=== PATIENT | female | born 1980 | race Caucasian/White ===

== ENCOUNTER 2016-10-14 17:49 | Emergency (ER) | payer BC, OTHER ==
[~2016-10-14] VITALS: Ht 160 cm; Wt 53.1 kg
[~2016-10-14 17:49] MED LIST: CALC500T83 PO; CHOL1000 PO; ESOM20CA PO; MONT1TAB3 PO; MULT-506 PO; QVRINH80 PO; SPRIN/30 INH; SYMIN/8045 INH
[2016-10-14 17:54] VITALS: TEMP 37.5; Ht 160 cm; Wt 53.1 kg
--- NOTE | 2016-10-14 18:56 | DIAGNOSTIC IMAGING REPORT ---
LEFT ELBOW MIN 3 VIEWS ROUTINE HISTORY: 36 years-old Female acute left elbow pain status post fall. COMPARISON: None available TECHNIQUE: 3 views of the left elbow FINDINGS: No acute fracture identified. The radial head appears subluxed dorsally to the capitellum with mild associated radiocapitellar degenerative changes noted. Negative for opaque foreign body. There is mild soft tissue swelling of the elbow. No large joint effusion. IMPRESSION: 1. No acute fracture. 2. Dorsal dislocation of the radial head in relation to the capitellum with mild associated soft tissue swelling. The above report was generated using voice recognition software. It may contain grammatical, syntax or spelling errors. Electronically signed by: Jonny Dinero M.D. 10/14/2016 6:55 PM Dictated Date/Time: 10/14/2016 6:49 PM
[2016-10-14 20:40] VITALS: BP 121/70; PULSE 70; O2SAT 98
--- NOTE | 2016-10-15 14:31 | EMERGENCY ROOM VISIT NOTE ---
ED Visit Note First contact with patient: 18:17 CHIEF COMPLAINT: Elbow pain HISTORY OF PRESENT ILLNESS: This 36-year-old female patient presents to the emergency department complaining of pain in the left elbow for the past one day. The patient was cleaning out the back of her vehicle at home with her vacuum boat cleaner. The patient states that she maneuvered herself into an awkward position, and fell out the back of the vehicle onto her left elbow. She has an old history of injury to this elbow with subtle deformity. She is not able to fully extend this elbow at baseline. The patient rates their pain as dull and 6/10. The patient has taken nothing for relief of the pain. The patient does not have any numbness or tingling. The patient denies any other injuries. REVIEW OF SYSTEMS: A 6 system review of systems was completed with positives and pertinent negatives listed in the HPI. ALLERGIES: Ibuprofen MEDICATIONS: See EMR PMH: Otherwise healthy SOCIAL HISTORY: Lives with family PHYSICAL EXAM: Vital Signs: Reviewed Nurse's notes, vital signs stable. GENERAL : White female, in no acute distress, well-developed, well-nourished. SKIN: The skin was with superficial abrasion over the proximal radius. Capillary reflex less than 3 seconds. MUSCULOSKELETAL: There is tenderness over the proximal radius of the left elbow. She is able to supinate and pronate against resistance. She is able to fully flex at this elbow, but not fully extend, again which is evidently normal for her. No tenderness of the left shoulder or left wrist. Neurovascular status is intact distally. Radial pulse 2+. NEURO: Patient was alert and oriented to person place and time. Normal sensation to light and sharp touch. LEFT ELBOW MIN 3 VIEWS ROUTINE HISTORY: 36 years-old Female acute left elbow pain status post fall. COMPARISON: None available TECHNIQUE: 3 views of the left elbow FINDINGS: No acute fracture identified. The radial head appears subluxed dorsally to the capitellum with mild associated radiocapitellar degenerative changes noted. Negative for opaque foreign body. There is mild soft tissue swelling of the elbow. No large joint effusion. IMPRESSION: 1. No acute fracture. 2. Dorsal dislocation of the radial head in relation to the capitellum with mild associated soft tissue swelling. EMERGENCY DEPARTMENT COURSE: Physical exam and history were performed. Nursing notes and EMR were reviewed. The patient evidently fell and struck her left elbow yesterday. X-ray was performed and shows dorsal dislocation of the radial head. Clinically this may be chronic for the patient, as she has had previous injury when she was much younger to this elbow. On exam she does not seem to be dislocated as she does have full range of motion and strength. Because of the unique nature of the injury and history I spoke with orthopedics , Dr Rueda. Dr. Rueda recommended that the patient be placed in a splint and given a sling. He will see her in his office tomorrow morning around 8 AM. The patient was pleased with this plan and voiced understanding. Splint was placed with neurovascular status remaining intact. The patient was given discharge instructions as below and otherwise invited back to ER with any new, worsening, or concerning symptoms. Current/Historical Medications Scheduled Budesonide/Formoterol Fumarate (Symbicort 80/4.5 Inhaler), 2 PUFFS INH BID Calcium (Calcium), 500 MG PO QAM Cholecalciferol (Vitamin D3), 1 TAB PO QAM Esomeprazole Magnesium (Nexium), 20 MG PO QAM Multivitamin (Multivitamin), 1 TAB PO QAM Allergies Coded Allergies: Aspirin (Verified Allergy, Unknown, asthma attack, 10/14/16) Ibuprofen (Verified Allergy, Unknown, ASTHMA ATTACK, 10/14/16) Vital Signs Date Time Temp Pulse Resp B/P (MAP) Pulse Ox O2 Delivery O2 Flow Rate FiO2 10/14/16 20:40 70 16 121/70 98 10/14/16 17:54 37.5 75 16 120/75 99 Room Air Departure Information Impression Primary Impression: Injury of left elbow Dispostion Home / Self-Care Condition GOOD Referrals Jw Rueda, DO Forms HOME CARE DOCUMENTATION FORM, IMPORTANT VISIT INFORMATION Patient Instructions My [facility], ED Compartment Syndrome At Risk For Additional Instructions You were seen and evaluated today on an emergency basis only. This is not a substitute for, or an effort to provide, complete comprehensive medical care. It is not possible to recognize and treat all injuries or illnesses in a single emergency department visit. For this reason it is recommended that you followup with [facility], Dr. Rueda's office, tomorrow morning at 8 AM. Please arrive at his office at 8am. He will see you around 8:30am. Let the office know that we spoke directly with Dr. Rueda about this appointment. They should be expecting you. For baseline pain relief you may alternate ibuprofen and acetaminophen every 4 hours for pain control. Take 600 mg ibuprofen (Advil) and then 4 hours later take 1000 mg acetaminophen (Tylenol). Do not take more than 3000 mg acetaminophen in a single day. Wear your sling for comfort. Do not get your splint wet. You are welcome to return to the emergency department anytime with new, worsening, or concerning symptoms.
== END 2016-10-14 20:40 | disposition home or self-care (01) ==
LOC: C.EDB 17:50 → C.EDD 20:40
DX: S50.312A Abrasion of left elbow, initial encounter (principal); W19.XXXA Unspecified fall, initial encounter; Y93.89 Activity, other specified; Z79.899 Other long term (current) drug therapy

== ENCOUNTER 2017-02-05 16:54 | Emergency (ER) | payer BC ==
[~2017-02-05] VITALS: Ht 160 cm; Wt 52.6 kg
[~2017-02-05 16:54] MED LIST changes: -MONT1TAB3 PO; -QVRINH80 PO; -SPRIN/30 INH
[2017-02-05 16:56] VITALS: TEMP 36.8; Ht 160 cm; Wt 52.6 kg
--- NOTE | 2017-02-05 17:09 | EMERGENCY ROOM VISIT NOTE ---
History Report prepared by Sheila: Chana Lees Under the Supervision of: Dr. Cely Sewell D.O. First contact with patient: 16:59 Chief Complaint: RESPIRATORY PROBLEMS Stated Complaint: DIFFICULTY BREATHING, ASTHMA History of Present Illness The patient is a 36 year old female who presents to the Emergency Room with complaints of worsening respiratory issues for the past few days. She reports she has a history of severe asthma and takes Symbicort twice a day. Any exertion worsens her symptoms as does laying flat. Two weeks ago during a particularly cold day, her symptoms began to worsen. Nebulizers used at home have provided minimal relief. Today she began to feel increasingly weak and developed a sore throat, so she came to the ED. She denies any sick contacts at home. She has not experienced any fevers, chills, cough, nausea, vomiting or diarrhea. She denies any recent diet changes or exposures to new chemicals or smells. She received a flu shot and pneumonia vaccine this year. Pt has previously been intubated for asthma. States has multiple triggers, sees pulmonology on a regular basis and has been much better controlled since having bronchial thermoplasty x 2. Source of History: patient Onset: past few days Position: chest Timing: worsening Modifying Factors (Worsening): other (cold weather) Modifying Factors (Relieving): other (Nebulizers) Associated Symptoms: No fevers, No chills, No cough, No nausea, No vomiting , No diarrhea Review of Systems See HPI for pertinent positives & negatives. A total of 10 systems reviewed and were otherwise negative. Past Medical & Surgical Medical Problems: (1) Asthma Social History Smoking Status: Never Smoker Alcohol Use: occasionally Drug Use: none Marital Status: Housing Status: lives with family Occupation Status: employed Current/Historical Medications Scheduled Budesonide/Formoterol Fumarate (Symbicort 80/4.5 Inhaler), 2 PUFFS INH BID Calcium Carbonate-Vitamin D W/ (Caltrate 600 Plus), 1 TAB PO DAILY Multivitamin (Multivitamin), 1 TAB PO QAM Prednisone (Prednisone Tab), 0 PO DAILY Scheduled PRN Esomeprazole Magnesium (Nexium), 20 MG PO QAM PRN for ACID REFLUX Levalbuterol (Levalbuterol HCl), 1 UNIT NEB Q4 PRN for SOB/Wheezing [Proair Hfa 108], 2 PUFF INH Q4 PRN for SOB/Wheezing Allergies Coded Allergies: Aspirin (Verified Allergy, Unknown, asthma attack, 02/05/17) Ibuprofen (Verified Allergy, Unknown, ASTHMA ATTACK, 02/05/17) Physical Exam Vital Signs Date Time Temp Pulse Resp B/P (MAP) Pulse Ox O2 Delivery O2 Flow Rate FiO2 02/05/17 18:58 79 18 110/65 99 02/05/17 18:20 83 18 115/65 99 Room Air 02/05/17 17:05 99 Room Air 02/05/17 16:56 36.8 103 18 137/82 100 Room Air Physical Exam GENERAL: alert, well appearing, well nourished, no distress, non-toxic, no apparent increased WOB EYE EXAM: normal conjunctiva, PERRL and EOM's grossly intact OROPHARYNX: no exudate, no erythema, lips, buccal mucosa, and tongue normal and mucous membranes are moist NECK: supple, no nuchal rigidity, no adenopathy, non-tender LUNGS: Clear to auscultation. Normal chest wall mechanics, no retractions, no nasal flaring HEART: no murmurs, S1 normal and S2 normal ABDOMEN: abdomen soft, non-tender, normo-active bowel sounds, no masses, no rebound or guarding. BACK: Back is symmetrical on inspection and there is no deformity, no midline tenderness, no CVA tenderness. SKIN: no rashes and no bruising UPPER EXTREMITIES: upper extremities are grossly normal. LOWER EXTREMITIES: No pitting edema. NEURO EXAM: Normal sensorium, cranial nerves II-XII grossly intact, normal speech, no gross weakness of arms, no gross weakness of legs. Medical Decision & Procedures ER Provider Diagnostic Interpretation: Radiology results have been interpreted by the radiologist and reviewed by me. CHEST 2 VIEWS ROUTINE HISTORY: Cough. Short of breath. COMPARISON: Chest 12/17/2015. FINDINGS: The lungs are clear. Cardiac silhouette is normal in size. No pleural effusions. No pneumothorax. IMPRESSION: No acute process. Electronically signed by: Aly Snow M.D. 02/05/2017 6:14 PM Medications Administered Medications (Trade) Dose Ordered Sig/Kisha Route Start Time Stop Time Status Last Admin Dose Admin Albuterol/ Ipratropium (Duoneb) 3 ml NOW STAT INH 02/05/17 17:13 12/23/17 17:14 DC 02/05/17 17:25 3 ML Prednisone (PredniSONE TAB) 60 mg NOW STAT PO 02/05/17 17:13 02/05/17 17:14 DC 02/05/17 17:25 60 MG ED Course 1704: The patient was evaluated in room C6. A complete history and physical exam was performed. 171: Prednisone 60 mg PO, DuoNeb 3 ml INH. 1811: I reevaluated the patient. She is feeling better. I discussed her results. 1840: Updated pt. Feeling better, doesn't feel she needs any additional nebulizer treatments. Discussed f/u with pulmonology, meds to go home on, sx to watch/return for, she verbalized understanding and was agreeable with plan. Medical Decision Differential diagnoses includes but is not limited to pneumonia, bronchitis, COPD/Asthma exacerbation, pneumothorax, pulmonary embolism, congestive heart failure, acute coronary syndrome Pt felt improved with neb and steroids here. No hypoxia, no increased WOB. No evidence of pneumonia. No other accompanying sx to suggest influenza, cardiac pathology, doubt bacteremia/sepsis, effusion. Pt well appearing here, comfortable with plan. DIscussed f/u, sx to return for, use of MDI/nebs at home , she verbalized understanding and was agreeable with plan. Medication Reconcilliation Current Medication List: was personally reviewed by me Blood Pressure Screening Patient's blood pressure: Normal blood pressure Blood pressure disposition: Did not require urgent referral Impression Primary Impression: Acute asthma exacerbation Scribe Attestation The scribe's documentation has been prepared under my direction and personally reviewed by me in its entirety. I confirm that the note above accurately reflects all work, treatment, procedures, and medical decision making performed by me. Departure Information Dispostion Home / Self-Care Prescriptions Prednisone (Prednisone Tab) 20 Mg Tab 0 PO DAILY, #7 TAB 2 TABS DAILY FOR 2 DAYS, THEN 1 TAB DAILY FOR 2 DAYS, THEN 1/2 TAB DAILY FOR 2 DAYS. Prov: Cely Sewell, 02/05/17 Referrals Justine Hunt MD (PCP) Patient Instructions My [facility] Additional Instructions Please use your nebulizers or inhaler 4-6 times during the day. Do not use it more than every 4 hours as needed for trouble breathing or wheezing. Please take the steroids daily as prescribed. Please try to avoid any potential triggers for your asthma. If you feel that your breathing is getting worse, notice a change in the color of your sputum, develop fevers, chest pain, vomiting, dizziness, or you've any other new concerns, please return the emergency room. Problem Qualifiers Primary Impression: Acute asthma exacerbation Asthma severity: mild Asthma persistence: intermittent Qualified Codes: J45.21 - Mild intermittent asthma with (acute) exacerbation
[2017-02-05] MEDS ORDERED: ALBUT/IPRATROP 3MG/0.5MG NEB 3 ML VIAL INH STA (17:13)
[2017-02-05] MEDS ORDERED: PROAIR HFA 108 INH (17:21)
[2017-02-05] MEDS ORDERED: CALCTAB7 PO (17:21)
[2017-02-05] MEDS ORDERED: XPNINS NEB (17:21)
--- NOTE | 2017-02-05 18:16 | DIAGNOSTIC IMAGING REPORT ---
CHEST 2 VIEWS ROUTINE HISTORY: Cough. Short of breath. COMPARISON: Chest 12/17/2015. FINDINGS: The lungs are clear. Cardiac silhouette is normal in size. No pleural effusions. No pneumothorax. IMPRESSION: No acute process. Electronically signed by: Aly Snow M.D. 02/05/2017 6:14 PM Dictated Date/Time: 02/05/2017 6:12 PM
[2017-02-05] MEDS ORDERED: PRED20TA2 PO (18:49)
[2017-02-05 18:58] VITALS: BP 110/65; PULSE 79; O2SAT 99
== END 2017-02-05 19:00 | disposition home or self-care (01) ==
LOC: C.EDB 16:54 → C.EDC 19:00
DX: J45.51 Severe persistent asthma with (acute) exacerbation (principal)

== ENCOUNTER 2017-02-22 11:09 | Emergency (ER) | payer BC ==
[~2017-02-22] VITALS: Ht 160 cm; Wt 63.3 kg
[~2017-02-22 11:09] MED LIST changes: -CALC500T83 PO; +CALCTAB7 PO; -CHOL1000 PO; +PRED20TA2 PO; +PROAIR HFA 108 INH; +XPNINS NEB
[2017-02-22 11:14] VITALS: O2SAT 99; Ht 160 cm; Wt 63.3 kg
[2017-02-22] MEDS ORDERED: ALBU18002 INH (11:28)
[2017-02-22] MEDS ORDERED: KETOROLAC TROMETHAMINE 30 MG/ML VIAL IV STA (11:58)
[2017-02-22] MEDS ORDERED: ACETAMINOPHEN 500 MG TAB PO STA (11:58)
[2017-02-22] MEDS ORDERED: ONDANSETRON INJ 2 MG/ML 2 ML VIAL IV STA (11:58)
[2017-02-22] MEDS ORDERED: FENTANYL CITRATE INJ 50 MCG/1 ML 2 ML VIAL IV ONE (12:00)
--- NOTE | 2017-02-22 12:11 | EMERGENCY ROOM VISIT NOTE ---
History Report prepared by Sheila: Dima Manzanares Under the Supervision of: Dr. Noe Hunter M.D. First contact with patient: 11:42 Chief Complaint: CARDIAC ASSESSMENT Stated Complaint: CHEST PRESSURE/SOB Nursing Triage Summary: C/o ongoing chest "pressure and heaviness" since January when she was diagnosed with asthma. Pt also reports increased SOB with exertion. Pt was at her PCP this am; they sent her here d/t tachycardia- pulse in the 140's [employer]. Current pulse 114. History of Present Illness The patient is a 36 year old white female with a past medical history of asthma and multiple broncho-thermoplasty who presents to the ED with a cc of a constant chest pressure beginning a couple of weeks ago. Negative cough, shortness of breath, nausea, vomiting, and leg swelling. She presented to her PCP today who noticed that her heart rate was elevated. They did an ECG and referred her to the hospital for a further workup. Over this time, her chest pain has been described as this constant pressure that is worse when she lies down. She notes that whenever she exercises, her chest pain becomes sharp and radiates into her left shoulder and right ribs. She has not taken any medications because she has assumed that her symptoms were related to her asthma. She notes her asthma has been under control recently. She is not on control. She denies any recent prolonged travel. Source of History: patient Onset: a couple weeks ago Position: chest (left) Symptom Intensity: moderate Quality: pressure Timing: constant Modifying Factors (Worsening): rest (lie flat), exertion Associated Symptoms: No cough, No SOB, No nausea, No vomiting Note: Whenever she exercises, her pain radiates into her left shoulder and right rib cage. Review of Systems See HPI for pertinent positives and negatives. A total of ten systems were reviewed and were otherwise negative. Past Medical & Surgical Medical Problems: (1) Asthma Family History Heart disease Hypertension Social History Smoking Status: Never Smoker Smokeless Tobacco Use: No Alcohol Use: occasionally Drug Use: none Marital Status: Housing Status: lives with family Occupation Status: employed Current/Historical Medications Scheduled Budesonide/Formoterol Fumarate (Symbicort 80/4.5 Inhaler), 2 PUFFS INH BID Calcium Carbonate-Vitamin D W/ (Caltrate 600 Plus), 1 TAB PO DAILY Multivitamin (Multivitamin), 1 TAB PO QAM Prednisone (Prednisone Tab), 0 PO DAILY Scheduled PRN Albuterol Sulfate (Proair Respiclick), 2 PUFFS INH Q4 PRN for SOB/Wheezing Esomeprazole Magnesium (Nexium), 20 MG PO QAM PRN for ACID REFLUX Levalbuterol (Levalbuterol HCl), 1 UNIT NEB Q4 PRN for SOB/Wheezing Allergies Coded Allergies: Aspirin (Verified Allergy, Unknown, asthma attack, 02/22/17) Ibuprofen (Verified Allergy, Unknown, ASTHMA ATTACK, 02/22/17) Physical Exam Vital Signs Date Time Temp Pulse Resp B/P (MAP) Pulse Ox O2 Delivery O2 Flow Rate FiO2 02/22/17 15:15 95 114/75 98 02/22/17 14:39 107 20 106/76 99 Room Air 02/22/17 13:57 36.9 100 18 126/69 100 Room Air 02/22/17 12:46 96 18 110/93 97 Room Air 02/22/17 12:06 109 02/22/17 11:23 99 Room Air 02/22/17 11:14 99 Room Air 02/22/17 11:14 36.9 114 22 114/72 99 Room Air Physical Exam GENERAL: Awake, alert, well-appearing, NAD HENT: Normocephalic, atraumatic. EYES: Normal conjunctiva. Sclera non-icteric. NECK: Supple. No nuchal rigidity. FROM. RESPIRATORY: CTAB, no rhonchi, wheezing, crackles CARDIAC: Tachycardic rate with a regular rhythm, no MRG ABDOMEN: Soft, NTND, BS+ MSK: No chest wall TTP, no LE edema NEURO: GCS 15, CN 2-12 intact, moves all 4s on command SKIN: No rash or jaundice noted. Medical Decision & Procedures ER Provider Diagnostic Interpretation: Radiology results as stated below per my review and radiologist interpretation: CT ANGIOGRAM OF THE CHEST CLINICAL HISTORY: Atypical chest pain. Tachycardia. COMPARISON STUDY: Chest x-ray dated 02/22/2017. TECHNIQUE: Following the IV administration of 88 cc of Optiray 320, CT angiogram of the chest was performed from the upper abdomen to the thoracic inlet utilizing the pulmonary embolus protocol. Images are reviewed in the axial, sagittal, and coronal planes. 3-D MIPS images are created and assessed. IV contrast was administered without complication. A dose lowering technique was utilized adhering to the principles of ALARA. CT DOSE: 174.37 mGy.cm FINDINGS: Thyroid: Imaged portions of the thyroid gland are normal in size and attenuation. Thoracic aorta: The thoracic aorta is normal in caliber and demonstrates standard 3-vessel arch anatomy. No dissection is seen. Pulmonary vasculature: The pulmonary trunk is normal in caliber. There are no filling defects identified in main, lobar, or segmental pulmonary branches to suggest pulmonary embolus. Heart: The heart is normal in size and configuration, and without pericardial effusion. Lungs and pleural spaces: The lungs and pleural spaces are clear noting dependent atelectasis. The trachea and central airways are patent. Mediastinum: There is no mediastinal lymphadenopathy. Brisa: Clear. Axillae: There is no axillary lymphadenopathy. Upper abdomen: Partially visualized upper abdominal viscera is within normal limits. Skeletal structures: No lytic or blastic bony lesions are seen. IMPRESSION: 1. There is no evidence of pulmonary embolus in the main, lobar, or segmental pulmonary arteries. 2. The lungs are clear. Electronically signed by: Devang Nieves M.D. 02/22/2017 2:00 PM Dictated Date/Time: 02/22/2017 1:57 PM CHEST ONE VIEW PORTABLE CLINICAL HISTORY: CHEST PAIN dyspnea COMPARISON STUDY: 02/05/2017 FINDINGS: The bones soft tissues and hemidiaphragms are normal. The cardiomediastinal silhouette is normal. The lungs are clear. The pulmonary vasculature is normal. IMPRESSION: Negative chest. The above report was generated using voice recognition software. It may contain grammatical, syntax or spelling errors. Electronically signed by: Rogelio Moreno M.D. 02/22/2017 12:34 PM Dictated Date/Time: 02/22/2017 12:33 PM Laboratory Results 02/22/17 11:15 Red Blood Count 5.36, Mean Corpuscular Volume 90.3, Mean Corpuscular Hemoglobin 31.5, Mean Corpuscular Hemoglobin Concent 34.9, Mean Platelet Volume 11.7, Neutrophils (%) (Auto) 73.5, Lymphocytes (%) (Auto) 18.1, Monocytes (%) (Auto) 6.2, Eosinophils (%) (Auto) 1.7, Basophils (%) (Auto) 0.3, Neutrophils # (Auto) 4.89, Lymphocytes # (Auto) 1.20, Monocytes # (Auto) 0.41, Eosinophils # (Auto) 0.11, Basophils # (Auto) 0.02 02/22/17 11:15 Test 02/22/17 11:15 02/22/17 12:46 White Blood Count 6.64 K/uL (4.8-10.8) Red Blood Count 5.36 M/uL (4.2-5.4) Hemoglobin 16.9 g/dL (12.0-16.0) Hematocrit 48.4 % (37-47) Mean Corpuscular Volume 90.3 fL (80-100) Mean Corpuscular Hemoglobin 31.5 pg (25-34) Mean Corpuscular Hemoglobin Concent 34.9 g/dl (32-36) Platelet Count 226 K/uL (130-400) Mean Platelet Volume 11.7 fL (7.4-10.4) Neutrophils (%) (Auto) 73.5 % Lymphocytes (%) (Auto) 18.1 % Monocytes (%) (Auto) 6.2 % Eosinophils (%) (Auto) 1.7 % Basophils (%) (Auto) 0.3 % Neutrophils # (Auto) 4.89 K/uL (1.4-6.5) Lymphocytes # (Auto) 1.20 K/uL (1.2-3.4) Monocytes # (Auto) 0.41 K/uL (0.11-0.59) Eosinophils # (Auto) 0.11 K/uL (0-0.5) Basophils # (Auto) 0.02 K/uL (0-0.2) RDW Standard Deviation 42.5 fL (36.4-46.3) RDW Coefficient of Variation 13.0 % (11.5-14.5) Immature Granulocyte % (Auto) 0.2 % Immature Granulocyte # (Auto) 0.01 K/uL (0.00-0.02) Anion Gap 7.0 mmol/L (3-11) Est Creatinine Clear Calc Drug Dose 86.0 ml/min Estimated GFR () 108.3 Estimated GFR (Non- 93.4 BUN/Creatinine Ratio 20.8 (10-20) Calcium Level 9.8 mg/dl (8.5-10.1) Troponin I < 0.015 ng/ml (0-0.045) Pro-B-Type Natriuretic Peptide 60 pg/ml (0-450) Human Chorionic Gonadotropin, Qual NEG (NEG) Chemistry Specimen Hemolysis Prothrombin Time 11.2 SECONDS (9.0-12.0) Prothromb Time International Ratio 1.1 (0.9-1.1) Activated Partial Thromboplast Time 26.2 SECONDS (21.0-31.0) Partial Thromboplastin Ratio 1.0 Thyroid Stimulating Hormone (TSH) 1.550 uIu/ml (0.300-4.500) Laboratory results reviewed by me Medications Administered Medications (Trade) Dose Ordered Sig/Kisha Route Start Time Stop Time Status Last Admin Dose Admin Ondansetron HCl (Zofran Inj) 4 mg NOW STAT IV 02/22/17 11:58 02/22/17 12:02 DC 02/22/17 12:10 4 MG Acetaminophen (Tylenol Tab) 1,000 mg NOW STAT PO 02/22/17 11:58 02/22/17 12:02 DC 02/22/17 12:10 1,000 MG Fentanyl Citrate (Fentanyl Inj) 50 mcg NOW ONCE IV 02/22/17 12:00 02/22/17 12:02 DC 02/22/17 12:11 50 MCG Ketorolac Tromethamine (Toradol Inj) 30 mg NOW STAT IV 02/22/17 11:58 02/22/17 12:02 DC 02/22/17 12:10 30 MG Sodium Chloride 500 ml @ 999 mls/hr Q31M STAT IV 02/22/17 12:43 02/22/17 13:13 DC 02/22/17 13:00 999 MLS/HR Lorazepam (Ativan Tab) 0.5 mg NOW STAT PO 02/22/17 14:12 02/22/17 14:13 DC 02/22/17 14:37 0.5 MG ECG Indication: chest pain Rate (beats per minute): 116 Rhythm: sinus tachycardia Findings: Q waves (III), other (normal axis, normal intervals, no other STS changes or TWI) Comparison ECG Date: 16 Dec 2016 Change: no significant change ED Course 1142: The patient was evaluated in room B5. A complete history and physical exam was performed. 1500: I reevaluated the patient. Discussed results and discharge instructions: She verbalized understanding and agreement. The patient is ready for discharge. Medical Decision The patient is a 36 year old white female with a past medical history of asthma and multiple broncho-thermoplasty who presents to the ED with a cc of a constant chest pressure beginning a couple of weeks ago. Negative cough, shortness of breath, nausea, vomiting, and leg swelling. Differential diagnosis: Etiologies such as cardiac ischemia, aortic dissection, pulmonary embolism, pneumonia, pneumothorax, musculoskeletal, infections, pericarditis, myocarditis , esophageal rupture, gastrointestinal, as well as others were entertained. Patient was seen and evaluated the bedside. Patient did with complaints of chest pressure that of been ongoing for couple of weeks. Patient states that sometimes this is worsened with thinking about it and also can be worsened with lying flat and somewhat positional in nature. Patient states that she usually cannot take NSAIDs or steroids as this usually makes her asthma worse. Patient on exam is fairly well-appearing although does have some tachycardia. Given the patient's second presentation with tachycardia with an exam is not consistent with asthma the patient did have blood work, EKG, troponin, CT of the chest, and chest x-ray. Patient's blood work was fairly unremarkable. Patient did have a mildly elevated H&H. Patient's BUNs to creatinine ratio was mildly elevated as well. This may be consistent with hemoconcentration and dehydration respectively. Patient does state she does urinate a lot but does take in a lot of by mouth fluids. Patient's other blood work was fairly unremarkable. Patient had a negative troponin. Patient had not obtained unchanged EKG. Patient's chest x-ray was clear and the patient did have a CT of the chest that did not show any evidence of PE or pericardial effusion. I did discuss all these findings with the patient. Patient was told that she may benefit from a formal echocardiogram. I did perform one at the bedside which showed good squeeze and no evidence of pericardial effusion. Patient appeared to have a normal EF. Of note the patient did have mild collapse of her IVC upon inspiration which may indicate dehydration. Patient was told she should continue good oral fluid hydration. Patient was told she should follow-up with her PCP. Patient was deemed suitable for outpatient follow-up and treatment at this time. Patient was given strict follow-up, discharge, and return precautions. All questions were answered. Patient was deemed suitable for outpatient follow-up at this time. Patient agreed with the plan of care and was safely discharged home. Medication Reconcilliation Current Medication List: was personally reviewed by wi Danielle Pressure Screening Patient's blood pressure: Normal blood pressure Blood pressure disposition: Did not require urgent referral Impression Primary Impression: Chest discomfort Additional Impressions: Tachycardia Dehydration Scribe Attestation The scribe's documentation has been prepared under my direction and personally reviewed by me in its entirety. I confirm that the note above accurately reflects all work, treatment, procedures, and medical decision making performed by me. Departure Information Dispostion Home / Self-Care Referrals Justine Hunt MD (PCP) Forms IMPORTANT VISIT INFORMATION Patient Instructions Dehydration, [facility], Tachycardia Additional Instructions Please return to the emergency department if you have worsening or recurrent symptoms not amenable to at-home treatment. Please call for a follow-up appointment with her primary care physician. Please take your medications as prescribed. If you have other concerns and/or complaints please feel free to also call your primary care physician's office or return the ED for further evaluation, management, and treatment. You received narcotic or benzodiazepene medication while in the emergency room today. This is an addictive medication that may cause drowziness as well as constipation. Do not drive, operate heavy machinery, or drink alcohol under the influence of this medication. You may take tylenol 1000 mg every 6 hours as needed for pain. You may take motrin and tylenol separately or at the same time. Take your medications as prescribed. You have been examined and treated today on an emergency basis only. This is not a substitute for, or an effort to provide, complete comprehensive medical care. It is impossible to recognize and treat all injuries or illnesses in a single emergency department visit. It is therefore important that you follow up closely with [facility], your PCP, and/or your specialist(s). Call as soon as possible for an appointment. Thank you for your time and consideration. I look forward to speaking with you again soon. Please don't hesitate to call us if you have any questions. Problem Qualifiers
[2017-02-22] MEDS ORDERED: OPTIRAY 320 IV PRN (12:15)
[2017-02-22 12:35] LABS: BASO % 0.3 %; BASO ABS # 0.02 K/uL (0-0.2); EOS % 1.7 %; EOS ABS # 0.11 K/uL (0-0.5); HEMATOCRIT 48.4 % (37-47); HEMOGLOBIN 16.9 g/dL (12.0-16.0); IG# 0.01 K/uL (0.00-0.02); LYMPH % 18.1 %; MEAN CELL VOLUME 90.3 fL (80-100); MEAN CORPUSCULAR HEMOGLOBIN 31.5 pg (25-34); MEAN CORPUSCULAR HGB CONC 34.9 g/dl (32-36); MEAN PLATELET VOLUME 11.7 fL (7.4-10.4); MONO % 6.2 %; MONO ABS # 0.41 K/uL (0.11-0.59); NEUT % 73.5 %; NEUT ABS # 4.89 K/uL (1.4-6.5); PLATELET COUNT 226 K/uL (130-400); RED CELL DISTRIBUTION WIDTH SD 42.5 fL (36.4-46.3); WHITE BLOOD COUNT 6.64 K/uL (4.8-10.8)
--- NOTE | 2017-02-22 12:35 | DIAGNOSTIC IMAGING REPORT ---
CHEST ONE VIEW PORTABLE CLINICAL HISTORY: CHEST PAIN dyspnea COMPARISON STUDY: 02/05/2017 FINDINGS: The bones soft tissues and hemidiaphragms are normal. The cardiomediastinal silhouette is normal. The lungs are clear. The pulmonary vasculature is normal. IMPRESSION: Negative chest. The above report was generated using voice recognition software. It may contain grammatical, syntax or spelling errors. Electronically signed by: Rogelio Moreno M.D. 02/22/2017 12:34 PM Dictated Date/Time: 02/22/2017 12:33 PM
[2017-02-22] MEDS ORDERED: SODIUM CHLORIDE 0.9% 500ML 500 ML IV STA (12:43)
[2017-02-22 12:56] LABS: BLOOD UREA NITROGEN 17 mg/dl (7-18); CALCIUM 9.8 mg/dl (8.5-10.1); CARBON DIOXIDE 25 mmol/L (21-32); CREATININE 0.81 mg/dl (0.60-1.20); GLUCOSE 81 mg/dl (70-99); POTASSIUM 4.1 mmol/L (3.5-5.1); SODIUM 137 mmol/L (136-145)
[2017-02-22 13:14] LABS: INR 1.1 (0.9-1.1); PTT PATIENT 26.2 SECONDS (21.0-31.0)
[2017-02-22 13:57] VITALS: TEMP 36.9
--- NOTE | 2017-02-22 14:01 | DIAGNOSTIC IMAGING REPORT ---
CT ANGIOGRAM OF THE CHEST CLINICAL HISTORY: Atypical chest pain. Tachycardia. COMPARISON STUDY: Chest x-ray dated 02/22/2017. TECHNIQUE: Following the IV administration of 88 cc of Optiray 320, CT angiogram of the chest was performed from the upper abdomen to the thoracic inlet utilizing the pulmonary embolus protocol. Images are reviewed in the axial, sagittal, and coronal planes. 3-D MIPS images are created and assessed. IV contrast was administered without complication. A dose lowering technique was utilized adhering to the principles of ALARA. CT DOSE: 174.37 mGy.cm FINDINGS: Thyroid: Imaged portions of the thyroid gland are normal in size and attenuation. Thoracic aorta: The thoracic aorta is normal in caliber and demonstrates standard 3-vessel arch anatomy. No dissection is seen. Pulmonary vasculature: The pulmonary trunk is normal in caliber. There are no filling defects identified in main, lobar, or segmental pulmonary branches to suggest pulmonary embolus. Heart: The heart is normal in size and configuration, and without pericardial effusion. Lungs and pleural spaces: The lungs and pleural spaces are clear noting dependent atelectasis. The trachea and central airways are patent. Mediastinum: There is no mediastinal lymphadenopathy. Brisa: Clear. Axillae: There is no axillary lymphadenopathy. Upper abdomen: Partially visualized upper abdominal viscera is within normal limits. Skeletal structures: No lytic or blastic bony lesions are seen. IMPRESSION: 1. There is no evidence of pulmonary embolus in the main, lobar, or segmental pulmonary arteries. 2. The lungs are clear. Electronically signed by: Devang Nieves M.D. 02/22/2017 2:00 PM Dictated Date/Time: 02/22/2017 1:57 PM
[2017-02-22] MEDS ORDERED: LORAZEPAM 0.5 MG TAB PO STA (14:12)
[2017-02-22 15:15] VITALS: BP 114/75; PULSE 95; O2SAT 98
== END 2017-02-22 15:17 | disposition home or self-care (01) ==
LOC: EDBD 11:09 → C.EDB 11:10
DX: R07.9 Chest pain, unspecified (principal); E86.0 Dehydration; R00.0 Tachycardia, unspecified; J45.909 Unspecified asthma, uncomplicated; Z79.899 Other long term (current) drug therapy; Z88.6 Allergy status to analgesic agent; Z82.49 Family history of ischemic heart disease and other diseases of the circulatory system

== ENCOUNTER → 2017-04-19 | Outpatient (CLI) | payer BC ==
[~2017-04-19] MED LIST changes: +ALBU18002 INH; -PROAIR HFA 108 INH
== END | disposition home or self-care (01) ==
LOC: C.LABSPEC 11:26
PROVIDERS: ATTEND Nurse Practitioner Family
DX: J02.9 Acute pharyngitis, unspecified (principal)

== ENCOUNTER → 2017-05-05 | Outpatient (CLI) | payer BC ==
[~2017-05-05] MED LIST changes: +DEXAMETHASONE **PF** INJ 10 MG/ML VIAL ONE; +MECLIZINE HCL 25 MG TAB PO ONE; +OXYCODONE/ACETAMINOPHEN 5-325 TAB ONE; +PERCOCET HOME PACK PO ONE
--- NOTE | 2017-05-05 07:50 | DIAGNOSTIC IMAGING REPORT ---
FUSION CT SINUSES W/O CLINICAL HISTORY: 37 years-old Female presenting with CHRONIC SINUSITIS. TECHNIQUE: Multidetector CT of the sinuses was performed without the use of intravenous contrast. IV contrast: None. A dose lowering technique was used consistent with the principles of ALARA (as low as reasonably achievable). COMPARISON: None. CT DOSE (mGy.cm): The estimated cumulative dose is 690.36 mGy.cm. FINDINGS: [employer] [place] [place] topogram: Unremarkable. Trace mucosal thickening in the sphenoid sinuses with the remainder of the paranasal sinuses and mastoid air cells clear. No sclerosis of the maxillary sinus more to suggest chronic sinusitis. No osseous erosion. Slight leftward deviation of the bony nasal septum anteriorly without evidence of bony spurring or bridging. Ostiomeatal units patent bilaterally. Nasal frontoethmoidal recesses patent bilaterally. No osseous dehiscence of the bony optic canals or carotid siphons. No anatomic variant. Orbits normal. Limited intracranial evaluation within normal limits. Upper cervical spine normal. IMPRESSION: No current evidence of acute or chronic sinusitis. No significant anatomic variant. Electronically signed by: Raymond Barger M.D. 05/05/2017 7:48 AM Dictated Date/Time: 05/05/2017 7:46 AM
== END | disposition home or self-care (01) ==
LOC: C.CTS 07:23
DX: J32.9 Chronic sinusitis, unspecified (principal)

== ENCOUNTER 2017-05-11 18:15 | Emergency (ER) | payer BC ==
[~2017-05-11 18:15] MED LIST changes: -DEXAMETHASONE **PF** INJ 10 MG/ML VIAL ONE; -MECLIZINE HCL 25 MG TAB PO ONE; -OXYCODONE/ACETAMINOPHEN 5-325 TAB ONE; -PERCOCET HOME PACK PO ONE
[2017-05-11 23:44] LABS: ALBUMIN 4.3 gm/dl (3.4-5.0); ALKALINE PHOSPHATASE 51 U/L (45-117); ALT/SGPT 19 U/L (12-78); AST/SGOT 14 U/L (15-37); BLOOD UREA NITROGEN 16 mg/dl (7-18); CALCIUM 9.2 mg/dl (8.5-10.1); CARBON DIOXIDE 28 mmol/L (21-32); CREATININE 0.84 mg/dl (0.60-1.20); GLUCOSE 73 mg/dl (70-99); POTASSIUM 3.6 mmol/L (3.5-5.1); SODIUM 137 mmol/L (136-145)
[2017-05-11 23:47] LABS: HEMATOCRIT 43.5 % (37-47); HEMOGLOBIN 15.2 g/dL (12.0-16.0); MEAN CELL VOLUME 88.8 fL (80-100); MEAN CORPUSCULAR HGB CONC 34.9 g/dl (32-36); MEAN PLATELET VOLUME 10.9 fL (7.4-10.4); PLATELET COUNT 287 K/uL (130-400); RED CELL DISTRIBUTION WIDTH CV 13.5 % (11.5-14.5); RED CELL DISTRIBUTION WIDTH SD 44.1 fL (36.4-46.3); WHITE BLOOD COUNT 8.23 K/uL (4.8-10.8)
--- NOTE | 2017-05-12 07:40 | DIAGNOSTIC IMAGING REPORT ---
CT SINUSES-MAXILLOFACIAL W/O CLINICAL HISTORY: Dear pain. Imbalance. Possible sinusitis. COMPARISON STUDY: 05/05/2017 TECHNIQUE: CT scan of the paranasal sinuses was performed in the axial plane. Coronal reconstructed images were obtained and reviewed. A dose lowering technique was utilized adhering to the principles of ALARA. CT DOSE: FINDINGS: No orbital masses are visualized. There is no evidence of acute sinusitis. There is no evidence of significant mucosal thickening. The mastoid air cells are symmetrically aerated. The middle ear cavities appear symmetrically aerated. The ostiomeatal units are patent bilaterally. IMPRESSION: No evidence of acute or chronic sinusitis. Electronically signed by: Roscoe Membreno M.D. 05/12/2017 7:39 AM Dictated Date/Time: 05/12/2017 7:37 AM
--- NOTE | 2017-05-12 14:07 | EMERGENCY ROOM VISIT NOTE ---
History Chief Complaint: EAR PAIN Stated Complaint: EQUILIBRIUM IMBALANCE,EAR/SINUS/MIGRAINE PAIN History of Present Illness The patient is a 37 year old female who presents to the Emergency Room with complaints of severe ear pain left greater than right that has been going on for several weeks to months. Patient has seen her primary care physician for this complaint. She is also seeing an ENT doctor. She was told that she had sinusitis. She is currently taking her third round of antibiotics- clarithromycin with no improvement. Patient also notes being off balance. Any sudden movement makes this worse. She is also had severe nausea. She denies any fever or chills. Review of Systems 10 system review performed and negative unless noted in HPI or below Past Medical/Surgical History Medical Problems: (1) Asthma Family History Heart disease Hypertension Social History Smoking Status: Never Smoker Alcohol Use: occasionally Drug Use: none Marital Status: Housing Status: lives with family Occupation Status: employed Current/Historical Medications Scheduled Budesonide/Formoterol Fumarate (Symbicort 80/4.5 Inhaler), 2 PUFFS INH BID Calcium Carbonate-Vitamin D W/ (Caltrate 600 Plus), 1 TAB PO DAILY Multivitamin (Multivitamin), 1 TAB PO QAM Prednisone (Prednisone Tab), 0 PO DAILY Scheduled PRN Albuterol Sulfate (Proair Respiclick), 2 PUFFS INH Q4 PRN for SOB/Wheezing Esomeprazole Magnesium (Nexium), 20 MG PO QAM PRN for ACID REFLUX Levalbuterol (Levalbuterol HCl), 1 UNIT NEB Q4 PRN for SOB/Wheezing Physical Exam Physical Exam GENERAL: 37-year-old female, moderately uncomfortable,, in no acute distress, nondiaphoretic, well-developed well-nourished. SKIN: The skin was without rashes, erythema, edema, or bruising. HEAD: Normocephalic atraumatic. EARS: External auditory canals clear, left tympanic membrane is pale. It appears to be intact. No significant effusion noted. Right tympanic membrane is more castro. Very small effusion noted. External auditory canals are clear EYES: Pupils equal round and reactive to light and accommodation. Extraocular movements intact. NOSE: Patent, turbinates without inflammation or discharge. No sinus tenderness. MOUTH: Mucous membranes moist. Tonsils are not enlarged. Pharynx without erythema or exudate. Uvula midline. Airway patent. Tongue does not deviate. MUSCULOSKELETAL: No muscle atrophy, erythema, or edema noted. No tenderness to palpation. Normal gait. Strength 5/5 throughout. NEURO: Patient was alert and oriented to person place and time. Normal sensation to touch. No focal neurological deficits. Medical Decision & Procedures Laboratory Results 05/11/17 20:13 05/11/17 20:13 Test 05/11/17 20:13 Red Blood Count 4.90 M/uL (4.2-5.4) Mean Corpuscular Volume 88.8 fL (80-100) Mean Corpuscular Hemoglobin 31.0 pg (25-34) Mean Corpuscular Hemoglobin Concent 34.9 g/dl (32-36) RDW Standard Deviation 44.1 fL (36.4-46.3) RDW Coefficient of Variation 13.5 % (11.5-14.5) Mean Platelet Volume 10.9 fL (7.4-10.4) Erythrocyte Sedimentation Rate 5 mm/hr (0-21) Urine Color YELLOW Urine Appearance CLEAR (CLEAR) Urine pH 7.0 (4.5-7.5) Urine Specific Victor 1.009 (1.000-1.030) Urine Protein NEG (NEG) Urine Glucose (UA) NEG (NEG) Urine Ketones NEG (NEG) Urine Occult Blood NEG (NEG) Urine Nitrite NEG (NEG) Urine Bilirubin NEG (NEG) Urine Urobilinogen NEG (NEG) Urine Leukocyte Esterase NEG (NEG) Urine Test NEG (NEG) Anion Gap 5.0 mmol/L (3-11) Estimated GFR () 102.9 Estimated GFR (Non- 88.8 BUN/Creatinine Ratio 18.7 (10-20) Calcium Level 9.2 mg/dl (8.5-10.1) Total Bilirubin 0.5 mg/dl (0.2-1) Aspartate Amino Transf (AST/SGOT) 14 U/L (15-37) Alanine Aminotransferase (ALT/SGPT) 19 U/L (12-78) Alkaline Phosphatase 51 U/L (45-117) Total Protein 8.0 gm/dl (6.4-8.2) Albumin 4.3 gm/dl (3.4-5.0) Globulin 3.7 gm/dl (2.5-4.0) Albumin/Globulin Ratio 1.2 (0.9-2) ED Course Patient was seen and examined Vital signs including blood pressure were reviewed medications list was verified with patient Labs were obtained, and a saline lock was established The patient was medicated with Decadron 10 mg IV. She was also given meclizine 25 mg by mouth. I discussed the case with radiology. They suggested a CT of the sinuses as opposed to an MRI. This was performed. The patient was reassessed. She was still complaining of significant discomfort. She was given 1 dose of Percocet. She was also provided with Percocet home pack. We thoroughly reviewed her results. She voiced understanding. Patient was also seen and examined by my supervising physician who is in agreement with my plan. I reviewed discharge instructions the patient. They voiced understanding and had no further questions. Medical Decision Differential diagnosis: Otitis media, otitis externa, benign positional vertigo , Mnire's disease, inner ear infection, sinusitis, mastoiditis This patient is a 37-year-old female that presents to the emergency department with recurrent ear pain left greater than right and vertiginous symptoms. On exam, she was uncomfortable. Her left tympanic membrane was fairly pale and appeared bulging. Otherwise, her exam was unremarkable. The case was discussed with radiology. They suggested a CT scan as opposed to an MRI. This was performed. No significant abnormalities were noted. She does not have any signs of mastoiditis. There is no tenderness posterior to the ear. The etiology of her symptoms is unclear. She was referred to an ear nose and throat doctor for further workup and treatment. She was also instructed to continue her current antibiotic as prescribed. She was given a short course of narcotics for pain. She was comfortable with this plan. She will return with any worsening symptoms. This chart was completed in part utilizing [employer] Speech Voice Recognition software. Attempts were made to minimize the grammatical errors, random word insertions, pronoun errors and incomplete sentences. Any formal questions or concerns about the content, text or information contained within the body of this dictation should be directly addressed to the provider for clarification. Impression Primary Impression: Ear pain, left Departure Information Dispostion Home / Self-Care Condition GOOD Referrals Justine Hunt MD (PCP) Forms WORK / SCHOOL INSTRUCTIONS, HOME CARE DOCUMENTATION FORM, IMPORTANT VISIT INFORMATION Patient Instructions [facility]
== END 2017-05-11 23:05 | disposition home or self-care (01) ==
LOC: C.EDC 18:15
DX: H92.02 Otalgia, left ear (principal); J45.909 Unspecified asthma, uncomplicated; Z82.49 Family history of ischemic heart disease and other diseases of the circulatory system

== ENCOUNTER → 2017-05-26 | Day surgery (SDC) | payer BC ==
[2017-05-25 11:28] VITALS: Ht 160 cm; Wt 52.7 kg
[~2017-05-26] VITALS: Ht 160 cm; Wt 52.7 kg
[~2017-05-26] MED LIST changes: +ASCO100T4 PO; +ATROPINE SULFATE 0.1 MG/ML 5ML SYR IV PRN; +BACITRACIN OINT 15 GM TUBE ONE; -CALCTAB7 PO; +CEFAZOLIN 1000MG IV PUSH 7.5 ML IV SCH; +DEXAMETHASONE SOD INJ 4 MG/ML VIAL ONE; -ESOM20CA PO; +EpHEDrine SULFATE INJ 50 MG/ML AMP IV PRN; +EpINEphrine INJ 1MG/ML AMP 1 MG/ML AMP ONE; +FENTANYL CITRATE INJ 50 MCG/1 ML 2 ML VIAL IV PRN; +FENTANYL CITRATE INJ 50 MCG/1 ML 2 ML VIAL ONE; +GELATIN SPONGE 12-7MM ONE; +HYDR-5688 PO; +HYDROCODONE/ACETAMIN 5/325MG TAB PO PRN; +LACTATED RINGER'S 1000ML 1,000 ML IV SCH; +LIDO 2%/EPINEPHRINE 1:100000 20 ML VIAL INFIL ONE; +LIDOCAINE 4% MPF SOAK 5 ML = 1 DOSE TOP ONE; +LIDOCAINE HCL 2% 2 ML VIAL (20MG/ML) ONE; +MIDAZOLAM HCL 1 MG/ML 2ML VIAL ONE; +MISCCAP80 PO; +ONDANSETRON INJ 2 MG/ML 2 ML VIAL IV PRN; +ONDANSETRON INJ 2 MG/ML 2 ML VIAL ONE; +PATIENT'S HEIGHT AND/OR WEIGHT NEEDED SCH; -PRED20TA2 PO; +PROPOFOL IV EMULSION 10 MG/ML 20 ML VIAL IV ONE; +RANI150T85 PO; +SODIUM CHLORIDE 0.9% 1000ML 1,000 ML IV SCH; -XPNINS NEB
--- NOTE | 2017-05-26 06:58 | History and Physical: Surg Cnt ---
History & Physical Date May 26, 2017. Chief Complaint left earache History of Present Illness The patient is a 37 year old female with complaints of 8 months of pain left face and ear, blocked ears, Sleuter's cephalgia Past Medical/Surgical History Medical Problems: (1) Asthma Additional History Hepatic Disease: No Endocrine Disorder: No Kidney Disease: No Hypertension: No Heart Disease: No Bleeding Tendencies: No Infectious Diseases: No Allergies Coded Allergies: Aspirin (Verified Allergy, Intermediate, asthma attack, 05/25/17) Ibuprofen (Verified Allergy, Intermediate, ASTHMA ATTACK, 05/25/17) Home Medications Scheduled Ascorbic Acid (Vitamin C), 1 TAB PO QAM Budesonide/Formoterol Fumarate (Symbicort 80/4.5 Inhaler), 2 PUFFS INH BID Multivitamin (Multivitamin), 1 TAB PO QAM Probiotic Product (Probiotic), 1 CAP PO QAM Ranitidine (Zantac), 150 MG PO BID Scheduled PRN Albuterol Sulfate (Proair Respiclick), 2 PUFFS INH Q4 PRN for SOB/Wheezing Physical Examination Skin: warm/dry, no rash Eyes: normal inspection, EOMI, sclerae normal ENT: normal ENT inspection, pharynx normal, + pertinent finding (septum dev. to left with impingement) Head: normocephalic, atraumatic Neck: supple, no adenopathy, trachea midline Respiratory/Chest: lungs clear, normal breath sounds, no respiratory distress Cardiovascular: regular rate, rhythm, no edema, no murmur Abdomen / GI: normal bowel sounds, non tender Back: normal inspection Extremities: normal inspection, normal range of motion Neurologic/Psych: no motor/sensory deficits, alert, normal reflexes, oriented x 3 Diagnosis Sleuter's cephalgia, eustschian tube dysfunction, allergic rhinitis Plan of Treatment sepotoplasty, Celon turbinates, balloon eustschian tubes
--- NOTE | 2017-05-26 10:50 | History & Physical Bridge Note ---
H&P Re-Evaluation Bridge Note: I have examined the patient, reviewed the History & Physical and in the interval since the performance of the History & Physical I have noted the following changes of clinical significance: dilate both eustachian tubes
--- NOTE | 2017-05-26 11:56 | [facility] Post Operative Brief Note ---
Immediate Operative Summary Operative Date May 26, 2017. Pre-Operative Diagnosis Deviated Nasal Septum, Chronic Ethmoidal Sinusitis Post-Operative Diagnosis same as preop Procedure(s) Performed Septoplasty, Balloon Bilateral Eustachian Tube, Celon Turbinates Surgeon Dr. Langley Ccu Nurse Surgeon(s) none Estimated Blood Loss 30ml Findings Consistent with Post-Op Diagnosis Specimens none Drains None Anesthesia Type General Complication(s) none Disposition Accompanied Pt To Recovery: yes Disposition: Recovery Room / PACU
--- NOTE | 2017-05-26 11:59 | Discharge Instructions-SurgCtr ---
Discharge Instructions Date of Service May 26, 2017. Visit Reason for Visit: Deviated Nasal Septum, Chronic Ethmoidal Sinusiti Discharge Discharge Diagnosis / Problem: plus Sleuter's headache and eustchian tube dysfunction Discharge Goals Goal(s): Therapeutic intervention Activity Recommendations Activity Limitations: per Instructions/Follow-up section Anesthesia . Post Anesthesia Instructions: If you have had General Anesthesia or IV Sedation: * Do not drive today. * Resume driving when surgeon permits. * Do not make important decisions or sign legal documents today. * Call surgeon for: 1. Temperature elevations greater than 101 degrees F. 2. Uncontrollable pain. 3. Excessive bleeding. 4. Persistent nausea and vomiting. 5. Medication intolerance (nausea, vomiting or rash). * For nausea and vomiting use only clear liquids such as: tea, soda, bouillon until nausea subsides, then gradually increase diet as tolerated. * If you have any concerns or questions, call your surgeon's office. If physician is unavailable and it is an emergency, call 911 or go to the nearest emergency room. . Instructions / Follow-Up Instructions / Follow-Up ACTIVITY RECOMMENDATIONS: * Being up and around is good, but no strenuous activity, heavy lifting or physical exertion for one week. * Keep your head elevated 30 degrees when lying down or sleeping. * Do not blow your nose for 48 hours, sniff back instead. * Avoid hot showers. OVER THE COUNTER MEDICATIONS: * You may use Tylenol * Avoid aspirin or aspirin containing products, e.g. as they may increase bleeding. SPECIAL CARE INSTRUCTIONS: * Expect to have bloody drainage from your nose and/or down your throat for one to three days. Change drip pad as needed. * Begin irrigating your nose with saline solution today, at least six to ten times per day and sniff back to help remove old clots or crust. * You may experience nasal and facial congestion, pain and pressure, this is normal. * Please call with any significant and/or progressive pain, redness, swelling around the eyes, visual changes, fever of 101.5 degrees F, active bleeding or any problems or concerns. * If active bleeding occurs, spray the nose three times at one minute intervals with Afrin spray and call or cell phone: . If unable to reach the doctor, go to the nearest Emergency Department. Special Diet: * Avoid extremely hot fluids. FOLLOW UP VISIT: Follow-up Visit with Dr. Langley If not already scheduled, please call to schedule. Diet Recommendations Home Diet: no limitations Procedures Procedures Performed: Septoplasty, Balloon Bilateral Eustachian Tube, Celon Turbinates Pending Studies Studies pending at discharge: no Medical Emergencies . Who to Call and When: Medical Emergencies: If at any time you feel your situation is an emergency, please call 911 immediately. . Non-Emergent Contact Non-Emergency issues call your: Primary Care Provider . . "Provider Documentation" section prepared by Sonya Langley. . [place] Drug Monitoring Program Search Results: no issues identified
--- NOTE | 2017-05-26 13:27 | Anesthesiology Progress Note ---
Anesthesia Post Op Note Date & Time May 26, 2017 at 13:26 Vital Signs Pain Intensity: 0 Vital Signs Past 12 Hours Date Time Temp Pulse Resp B/P (MAP) Pulse Ox O2 Delivery O2 Flow Rate FiO2 05/26/17 12:50 37.2 92 16 114/74 (87) 98 Room Air 05/26/17 12:42 37.1 83 16 125/71 98 Room Air 05/26/17 12:40 125/71 05/26/17 12:40 125/71 05/26/17 12:37 90 21 99 05/26/17 12:37 90 21 05/26/17 12:37 90 21 99 05/26/17 12:37 90 21 05/26/17 12:36 99 14 97 05/26/17 12:36 93 14 05/26/17 12:35 122/76 05/26/17 12:31 80 16 100 05/26/17 12:31 87 16 05/26/17 12:30 125/83 05/26/17 12:26 97 19 100 05/26/17 12:26 97 19 05/26/17 12:25 116/76 05/26/17 12:21 99 26 05/26/17 12:21 102 26 100 05/26/17 12:20 130/76 05/26/17 12:16 92 14 05/26/17 12:16 92 14 100 05/26/17 12:15 125/65 05/26/17 12:11 96 16 100 05/26/17 12:11 100 16 05/26/17 12:10 105 21 128/85 100 05/26/17 12:10 100 21 05/26/17 12:06 123/88 05/26/17 12:05 36.6 99 12 123/88 100 Humidified Oxygen 5 Mask 05/26/17 09:29 37.0 89 18 121/71 (88) 95 Room Air Notes Mental Status: alert / awake / arousable, participated in evaluation Pt Amnestic to Procedure: Yes Nausea / Vomiting: adequately controlled Pain: adequately controlled Airway Patency, RR, SpO2: stable & adequate BP & HR: stable & adequate Hydration State: stable & adequate Anesthetic Complications: no major complications apparent Anesthetic Complications: Patient has a history of urinary retention after anesthesia. Patient did well in PACU and was able to urinate without complications prior to discharge.
[2017-05-26 13:50] VITALS: BP 108/74; PULSE 90; O2SAT 96
--- NOTE | 2017-05-26 17:21 | OPERATIVE REPORT ---
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 PROCEDURE: Septoplasty and radiofrequency volume reduction of the turbinates and balloon dilation of both eustachian tubes. SURGEON: Sonya Langley MD ANESTHESIA: General LMA. COMPLICATIONS: None. BLOOD LOSS: 30 mL. HISTORY: A 37-year-old lady with significant persistent pain of the left ear and left face for the last 8 months. She had a CT scan, which was normal; however, she persistently having pain when she presented to my office. The pain disappeared when topical anesthetic was placed over the left septal spur. This was confirmed second time to diagnose Schluter's cephalgia. PROCEDURE: The patient brought to the operating room and placed in supine position. General anesthesia was induced using LMA. She was prepped and draped in usual sterile manner. The nose was decongested using topical cottonoids with a solution of 4 mL of 4% Xylocaine mixed with 1 mL of epinephrine. Injection of 2% Xylocaine with 1:100,000 strength epinephrine was also used. The endoscope was used. The inferior turbinates were treated with radiofrequency, volume reduction using the Celon machine creating 5 lesions in each inferior turbinate with the setting of #18 on the Celon machine. The inferior turbinates were then fractured laterally. The eustachian tubes were dilated using the AERA balloon by [employer]. The balloons were dilated to 12 atmospheric pressures in the left and then in the right. Eustachian tube is maintaining the pressure for 2 minutes on each side. Endoscopic septoplasty was then performed. The left hemitransfixion incision was made and mucoperichondrium was elevated off the left side of septum. Septal cartilage was inferiorly from the vomer maxillary crest and posteriorly from the perpendicular plate of the ethmoid and then bilateral posterior tunnels were elevated, isolating the bony cartilaginous spur projecting to the left, which was removed using the Gabe rongeurs and the Christine forceps and the caudal dissector. This returned the septum to the midline. The septum was packed with a single piece of Gelfoam on the left side packing down the mucoperichondrium at the Hakan incision. The patient tolerated the procedure well and was taken to the recovery area in satisfactory condition. I attest to the content of the Intraoperative Record and any orders documented therein. Any exception s are noted below.
== END | disposition home or self-care (01) ==
LOC: X.SURG 09:04
PROVIDERS: ATTEND Otolaryngology
DX: J34.2 Deviated nasal septum (principal); R51 Headache; H69.83 Other specified disorders of Eustachian tube, bilateral; K21.9 Gastro-esophageal reflux disease without esophagitis; J45.909 Unspecified asthma, uncomplicated; Z88.6 Allergy status to analgesic agent

== ENCOUNTER → 2017-10-03 | Day surgery (SDC) | payer BC ==
--- NOTE | 2017-09-19 15:26 | PAT Medication Instructions ---
Service Date Sep 19, 2017. Current Home Medication List Acetaminophen (Tylenol), 1,000 MG PO PRN Albuterol Sulfate (Proair Respiclick), 2 PUFFS INH Q4 PRN for SOB/Wheezing Ascorbic Acid (Vitamin C), 1 TAB PO QAM Budesonide/Formoterol Fumarate (Symbicort 80/4.5 Inhaler), 2 PUFFS INH BID Multivitamin (Multivitamin), 1 TAB PO QAM Probiotic Product (Probiotic), 1 CAP PO QAM Ranitidine (Zantac), 150 MG PO BID Medication Instructions For Your Scheduled Surgery - Hold the following medications the morning of surgery: Ascorbic Acid (Vitamin C), 1 TAB PO QAM Multivitamin (Multivitamin), 1 TAB PO QAM Probiotic Product (Probiotic), 1 CAP PO QAM - Take the following medications the morning of surgery with a sip of water: Ranitidine (Zantac), 150 MG PO BID Budesonide/Formoterol Fumarate (Symbicort 80/4.5 Inhaler), 2 PUFFS INH BID Acetaminophen (Tylenol), 1,000 MG PO PRN (okay to take up to 4 hours prior to surgery if needed) Albuterol Sulfate (Proair Respiclick), 2 PUFFS INH Q4 PRN for SOB/Wheezing (if needed) - Take the following medications as scheduled the night before surgery: Ranitidine (Zantac), 150 MG PO BID Budesonide/Formoterol Fumarate (Symbicort 80/4.5 Inhaler), 2 PUFFS INH BID Acetaminophen (Tylenol), 1,000 MG PO PRN (if needed) Albuterol Sulfate (Proair Respiclick), 2 PUFFS INH Q4 PRN for SOB/Wheezing (if needed) If you have any questions please call us at [phone] or [phone] or [phone]
[2017-09-20 09:49] VITALS: Ht 160 cm; Wt 52.3 kg
[2017-09-20 11:23] LABS: HEMATOCRIT 41.1 % (37-47); MEAN CELL VOLUME 88.2 fL (80-100); MEAN CORPUSCULAR HGB CONC 34.1 g/dl (32-36); MEAN PLATELET VOLUME 11.5 fL (7.4-10.4); PLATELET COUNT 225 K/uL (130-400); RED CELL DISTRIBUTION WIDTH CV 13.5 % (11.5-14.5); RED CELL DISTRIBUTION WIDTH SD 43.6 fL (36.4-46.3); WHITE BLOOD COUNT 4.47 K/uL (4.8-10.8)
[~2017-10-03] VITALS: Ht 160 cm; Wt 52.3 kg
[~2017-10-03] MED LIST changes: +ACET-1256 PO; -BACITRACIN OINT 15 GM TUBE ONE; -CEFAZOLIN 1000MG IV PUSH 7.5 ML IV SCH; -EpINEphrine INJ 1MG/ML AMP 1 MG/ML AMP ONE; -GELATIN SPONGE 12-7MM ONE; -HYDR-5688 PO; -HYDROCODONE/ACETAMIN 5/325MG TAB PO PRN; +KETOROLAC TROMETHAMINE 30 MG/ML VIAL ONE; -LIDO 2%/EPINEPHRINE 1:100000 20 ML VIAL INFIL ONE; -LIDOCAINE 4% MPF SOAK 5 ML = 1 DOSE TOP ONE; +OXYC-57 PO; +OXYCODONE/ACETAMINOPHEN 5-325 TAB ONE; +OXYCODONE/ACETAMINOPHEN 5-325 TAB PO PRN; -PATIENT'S HEIGHT AND/OR WEIGHT NEEDED SCH; +PROMETHAZINE HCL INJ 25 MG in SODIUM CHLORIDE 0.9% 50ML 50 ML IV PRN; -PROPOFOL IV EMULSION 10 MG/ML 20 ML VIAL IV ONE; +PROPOFOL IV EMULSION 10 MG/ML 20 ML VIAL ONE
--- NOTE | 2017-10-03 08:23 | History & Physical Bridge - SC ---
H&P Re-Evaluation Bridge Note: I have examined the patient, reviewed the History & Physical and in the interval since the performance of the History & Physical I have noted the following changes of clinical significance: No changes noted
--- NOTE | 2017-10-03 08:25 | History & Physical Bridge - SC ---
H&P Re-Evaluation Bridge Note: I have examined the patient, reviewed the History & Physical and in the interval since the performance of the History & Physical I have noted the following changes of clinical significance: possible polypectomy
--- NOTE | 2017-10-03 08:59 | [facility] Post Operative Brief Note ---
Immediate Operative Summary Operative Date Oct 03, 2017. Pre-Operative Diagnosis Menorrhagia Post-Operative Diagnosis Same as pre-op Procedure(s) Performed Dilatation And Curettage, Hysteroscopy, Endometrial Ablation with Novasure Surgeon Senior Cyber Intelligence Analyst Surgeon(s) None Estimated Blood Loss 5ML Findings Consistent with Post-Op Diagnosis Specimens A.Endometrial curettings Drains None Anesthesia Type General Complication(s) none Disposition Accompanied Pt To Recover: no Disposition: Recovery Room / PACU
--- NOTE | 2017-10-03 09:00 | Discharge Instructions ---
Discharge Instructions Date of Service Oct 03, 2017. Admission Reason for Admission: Menorrhagia Discharge Discharge Diagnosis / Problem: menorrhagia Discharge Goals Goal(s): Routine recovery after surgery Activity Recommendations Activity Limitations: per Instructions/Follow-up section . Instructions / Follow-Up Instructions / Follow-Up ACTIVITY RECOMMENDATIONS: * Avoid tampons, douching, hot tubs, pools, and intercourse until bleeding has stopped. * May shower as usual. * No strenuous activity for 24-48 hours. After 24-48 hours, you may do anything you feel like doing (driving and sports are okay). SPECIAL CARE INSTRUCTIONS: Special Diet: * Mild nausea may occur in the immediate post-operative period. * Take clear liquids such as tea, cola or bouillon until all nausea has subsided; you may then resume your normal diet. Special Care: * Light bleeding and vaginal spotting can last from a few days to 3-4 weeks. Call your doctor if bleeding becomes heavier than the heaviest part of your period. * Check your temperature twice a day for one week. If it goes above 100.4 degrees Fahrenheit (38.0 Celsius), notify your doctor. * Call your doctor's office for an appointment for 6 weeks after your surgery. FOLLOW-UP VISIT: Call your doctor's office for an appointment for 6 weeks after your surgery. Current Hospital Diet Patient's current hospital diet: Discharge Diet Recommended Diet: Regular Diet Procedures Procedures Performed: Dilatation And Curettage, Hysteroscopy, Endometrial Ablation with Novasure Pending Studies Studies pending at discharge: no Medical Emergencies . Who to Call and When: Medical Emergencies: If at any time you feel your situation is an emergency, please call 911 immediately. . Non-Emergent Contact Non-Emergency issues call your: Extension Specialist . . "Provider Documentation" section prepared by Jw Cooper. .
--- NOTE | 2017-10-03 09:11 | OPERATIVE REPORT ---
DATE OF OPERATION: 10/03/2017 PREOPERATIVE DIAGNOSIS: Menorrhagia. POSTOPERATIVE DIAGNOSIS: Menorrhagia. PROCEDURES: Hysteroscopy, D and C, endometrial ablation with NovaSure. SURGEON: Dr. Cooper. INVESTMENT BROKER: None. ESTIMATED BLOOD LOSS: 5 mL. ESTIMATED FLUID LOSS: 0. FINDINGS: Consistent with postoperative diagnosis. SPECIMENS: Endometrial curettings. DRAINS: None. ANESTHETIC: General. COMPLICATIONS: None. DISPOSITION: Recovery room. DESCRIPTION OF PROCEDURE: The patient was given general anesthetic and prepped and draped in lithotomy position. Bladder drained. Uterus examined and found to be mid position. Cervix was then grabbed with an Allis clamp and then methodically dilated starting with #13 dilator progressing to a #25 dilator. On inspection with the hysteroscope, we saw a normal uterine cavity. Both tubal ostia were visualized and normal, no sign of perforation. No polyps seen. Brief curettage with sharp curettage performed and endometrial curettings done. NovaSure was then deployed. The cavity length was 4 cm as the cervical length was 4 cm. The width was 3.6 cm. We performed the cavity integrity test and passed on the first attempt and then ablated with the NovaSure. At the end of the procedure, NovaSure was removed. Cavity was assessed and was found to be well ablated. No sign of perforation. After pictures for documentation, instruments removed. Sponge and instrument counts correct. I attest to the content of the Intraoperative Record and any orders documented therein. Any exception s are noted below.
--- NOTE | 2017-10-03 09:22 | Anesthesia Progress Nt - [facility] ---
Anesthesia Post Op Note Date & Time Oct 03, 2017 at 09:21 Vital Signs Pain Intensity: 0 Vital Signs Past 12 Hours Date Time Temp Pulse Resp B/P (MAP) Pulse Ox O2 Delivery O2 Flow Rate FiO2 10/03/17 09:11 63 21 10/03/17 09:11 63 21 88/46 100 10/03/17 09:07 87/44 10/03/17 09:06 36.5 63 12 87/44 100 Mask 5 10/03/17 07:46 36.6 79 16 100/62 (75) 96 Room Air Notes Mental Status: alert / awake / arousable, participated in evaluation Pt Amnestic to Procedure: Yes Nausea / Vomiting: adequately controlled Pain: adequately controlled Airway Patency, RR, SpO2: stable & adequate BP & HR: stable & adequate Hydration State: stable & adequate Anesthetic Complications: no major complications apparent
[2017-10-03 11:05] VITALS: BP 109/65; PULSE 82; O2SAT 95
== END | disposition home or self-care (01) ==
LOC: X.SURG 07:24
PROVIDERS: ATTEND Obstetrics & Gynecology
DX: N92.0 Excessive and frequent menstruation with regular cycle (principal); K21.9 Gastro-esophageal reflux disease without esophagitis; J45.909 Unspecified asthma, uncomplicated; Z91.030 Bee allergy status; Z88.6 Allergy status to analgesic agent

== ENCOUNTER 2019-02-14 09:59 | Inpatient (IN) ==
[2019-02-14] MEDS ORDERED: SODIUM CHLORIDE 0.9% 1000ML 1,000 ML IV ONE (10:38)
[2019-02-14] MEDS ORDERED: MoRPHine SULFATE 4 MG/ML 1 ML CARP\\VIAL IV STA (10:38)
[2019-02-14] MEDS ORDERED: ONDANSETRON INJ 2 MG/ML 2 ML VIAL IV STA (10:38)
[2019-02-14 11:01] LABS: Appearance Urine Cloudy (Clear); Bacteria Urine Automated Negative (Negative); Bilirubin Urine Negative (Negative); Blood Urine Negative (Negative); Cast Urine Automated 0 /lpf (0-5); Color Urine Dark Yellow; Epithelial Cell Urine Auto >30 /lpf (0-5); Glucose Urine UA Negative (Negative); Ketones Urine Negative (Negative); Leukocyte Esterase Urine 1+ (Negative); Nitrite Urine Negative (Negative); Protein Urine Negative (Negative); RBC Urine Automated 0-4 /hpf (0-4); Specific Gravity Urine 1.024 (1.000-1.030); Urobilinogen Urine Negative (Negative); pH Urine 7.5 (4.5-7.5)
[2019-02-14 11:04] LABS: Basophils # (auto) 0.02 K/uL (0-0.2); Basophils % (auto) 0.2 %; Eosinophils # (auto) 0.12 K/uL (0-0.5); Eosinophils % (auto) 1.3 %; Hemoglobin 15.3 g/dL (12.0-16.0); Immature Granulocytes # (auto) 0.02 K/uL (0.00-0.02); Immature Granulocytes % (auto) 0.2 %; Lymphocytes % (auto) 11.5 %; Mean Corpuscular Hemoglobin 31.7 pg (25-34); Mean Corpuscular Hgb Conc 33.3 g/dL (32-36); Mean Corpuscular Volume 95.2 fL (80-100); Monocytes # (auto) 0.61 K/uL (0.11-0.59); Monocytes % (auto) 6.4 %; Neutrophils # (auto) 7.68 K/uL (1.4-6.5); Neutrophils % (auto) 80.4 %; Platelet Count 260 K/uL (130-400); RDW Coefficient of Variation 12.9 % (11.5-14.5); RDW Standard Deviation 44.9 fL (36.4-46.3); Red Blood Count 4.83 M/uL (4.2-5.4); White Blood Count 9.55 K/uL (4.8-10.8)
[2019-02-14 11:21] LABS: Albumin Level 3.7 gm/dl (3.4-5.0); Calcium 9.3 mg/dl (8.5-10.1); Creatinine Clr Calc Pharmacy 83.4 ml/min; Est GFR (African American) 110.1; Potassium 4.7 mmol/L (3.5-5.1)
[2019-02-14 11:23] LABS: Albumin Globulin Ratio 0.9 (0.9-2); Bilirubin,Total 0.2 mg/dl (0.2-1); Total Protein 7.7 gm/dl (6.4-8.2)
--- NOTE | 2019-02-14 12:04 | XRay Report ---
LUMBAR SPINE 3 VIEWS CLINICAL HISTORY: Low back pain. FINDINGS: 3 views of the lumbar spine are obtained. The skeletal structures are well mineralized. Th ere is no radiographic evidence of fracture or malalignment. Vertebral body height and alignment are maintained. The transverse and spinous processes are intact. The intervertebral disc spaces are well- maintained. The visualized bony pelvis appears intact. There is a nonobstructed abdominal bowel gas p attern. Moderate fecal retention is noted in the colon. Phleboliths are noted in the pelvis. IMPRESSION: Unremarkable radiographic evaluation of the lumbar spine. ACT 112: Negative or not required by law. Electronically signed by: Devang Nieves M.D. 02/14/2019 12:03 PM
--- NOTE | 2019-02-14 12:06 | Ultrasound Report ---
ULTRASOUND KIDNEYS AND BLADDER CLINICAL HISTORY: Left flank pain. COMPARISON STUDY: Abdominal radiograph dated 12/17/2015. TECHNIQUE: Real-time, grayscale, and color flow sonography of the kidneys and bladder is performed. I mages are reviewed in the transverse and longitudinal planes. FINDINGS: Kidneys: The kidneys are normal in size and echotexture. The right kidney measures 12.7 cm in length and the left kidney measures 11.6 cm in length. There is no hydronephrosis. No shadowing renal calcul i are identified. There is no sonographic evidence of contour deforming renal mass lesion. No perinep hric fluid is identified. Bladder: The bladder is normal in appearance. Bilateral ureteral jets were seen. IMPRESSION: Unremarkable sonographic assessment of the kidneys and bladder. ACT 112: Negative or not required by law. Electronically signed by: Devang Nieves M.D. 02/14/2019 12:04 PM
--- NOTE | 2019-02-14 12:08 | Ultrasound Report ---
ULTRASOUND OF THE PELVIS CLINICAL HISTORY: Left pelvic pain. COMPARISON STUDY: Pelvic ultrasound dated 12/19/2018. TECHNIQUE: Real-time, grayscale, and color flow sonography of the pelvis is performed both transabdom inally and endovaginally. Images are reviewed in the transverse and longitudinal planes. The endovagi nal examination was performed for better assessment of the ovaries and adnexa. FINDINGS: Uterus: The uterus is normal in size and echotexture, measuring 8.9 x 4.4 x 5.0 cm. Endometrium: The endometrium is normal in appearance, and the endometrial stripe is normal in thickne ss measuring up to 0.7 cm. Ovaries: The ovaries are normal in size and morphology. The right ovary measures 2.6 x 1.5 x 2.9 cm a nd the left ovary measures 4.4 x 2.2 x 2.2 cm. Small follicles are noted bilaterally. Normal Doppler waveforms are shown within both ovaries. Pelvis: There is no free fluid in the cul-de-sac. No concerning adnexal lesion is seen. A shadowing b owel loop is noted in the left lower quadrant. IMPRESSION: 1. Unremarkable sonographic assessment of the pelvic viscera. 2. A shadowing loop of bowel is identified left lower quadrant, and the patient is focally tender at this site. ACT 112: Negative or not required by law. Electronically signed by: Devang Nieves M.D. 02/14/2019 12:07 PM
[2019-02-14] MEDS ORDERED: IOVERSOL 100ml IV PRN (12:29)
--- NOTE | 2019-02-14 12:42 | CT Scan Report ---
CT SCAN OF THE ABDOMEN AND PELVIS WITH IV CONTRAST CLINICAL HISTORY: Left lower quadrant abdominal pain. COMPARISON STUDY: Pelvic and renal ultrasound performed the same day 02/14/2019. TECHNIQUE: Following the IV administration of 94 cc of Optiray 320, CT scan of the abdomen and pelvi s is performed from the lung bases to the proximal femora. Images are reviewed in the axial, sagittal , and coronal planes. IV contrast was administered without complication. A dose lowering technique wa s utilized adhering to the principles of ALARA. CT DOSE: 261.99 mGy.cm FINDINGS: Lung bases: The heart is normal in size and without pericardial effusion. The lung bases are clear no ting dependent atelectasis. Liver: The contrast-enhanced liver is normal in size, contour, and attenuation. There is no intrahepa tic biliary ductal dilatation. The hepatic veins and portal veins are patent. Gallbladder: Unremarkable. Spleen: Normal in size and attenuation. Pancreas: Unremarkable. Adrenal glands: Unremarkable. Kidneys: The contrast enhanced kidneys are normal in size and without hydronephrosis. The kidneys enh ance symmetrically. Abdominal vasculature: The abdominal aorta is normal in course and caliber. Bowel: There is moderate to severe constipation. No bowel obstruction is seen. The appendix is well- visualized and normal. Peritoneum: There is no intraperitoneal free air or abdominal ascites. There is a fat-containing umbi lical hernia. Lymphadenopathy: None. Pelvic viscera: The bladder, uterus, and adnexa are normal as visualized noting bilateral ovarian fol licles. There is mild heterogeneity of the left iliopsoas musculature with faint surrounding inflamma tory change. No intramuscular hematoma is identified. A 1.5 cm abscess is suggested in the left psoas muscle on image #186. Skeletal structures: No lytic or blastic lesions are seen. IMPRESSION: 1. There is mild heterogeneity of the left iliopsoas musculature with faint surrounding inflammation. Correlate clinically for evidence of a nonspecific myositis. 2. A 1.5 cm abscess is suggested in the left psoas muscle. 3. Moderate to severe constipation. ACT 112: Positive. There are findings on this exam that require communication between the performing entity and the patient following Patient Test Result Information Act ([place] Act 112) guidelines. Electronically signed by: Devang Nieves M.D. 02/14/2019 12:40 PM
[2019-02-14] MEDS ORDERED: cefOXitin 2,000 MG/60 ML BAG IV STA (13:05)
[2019-02-14] MEDS ORDERED: VANCOMYCIN CONSULT ACTIVE PRN ×2 (13:05→15:56)
[2019-02-14] MEDS ORDERED: VANCOMYCIN HCL 1,500 MG in SODIUM CHLORIDE 0.9% 500 ML IV ONE (13:05)
--- NOTE | 2019-02-14 13:08 | Emergency Department Note ---
Entered by Casi Robertson acting as a scribe for Kamran Conroy MD History of Present Illness General Chief complaint: Abdominal Pain Stated complaint: SEVERE LOWER L ABD PAIN GETTING WORSE Time Seen by Provider: 02/14/19 10:28 Source: patient Limitations: no limitations History of Present Illness Onset (ago): day(s) 4 Location: back (lower left) Radiation: other ("across pelvis") Severity: severe Pain Consistency: + constant Maximum Pain Intensity: 10 Quality: + other (severe, worsening pain) Associated symptoms: + denies other symptoms (denies any urinary symptoms, genital numbness, incontinence, vaginal bleeding/discharge, fever, vomiting, and diarrhea) The patient is a 38 year old female who presents to the Emergency Room with complaints of constant, severe lower left back pain that began 5 days ago. She states that she fell 2 weeks ago on concrete stairs and landed on the spot where the pain began. She states, however, that the pain did not start until 4 to 5 days ago. The patient reports that the pain is worsening, noting that it now radiates "across her pelvis." She complains of difficulty lifting her left leg secondary to pain. The patient complains that the pain intermittently radiates to her left thigh and knee, and she notes intermittent tingling in the left leg. She denies any urinary symptoms, genital numbness, incontinence, vaginal bleeding/discharge, fever, vomiting, and diarrhea. The patient states that she's never had pain like this before. She notes a history of asthma. Home Medications Home Medications Medication Instructions Recorded Confirmed Type levalbuterol HCl 0.63 mg/3 mL 0.63 mg INH Q4H PRN #120 vial 09/14/18 02/14/19 Rx solution for nebulization levalbuterol tartrate 45 2 puffs INH Q4H PRN #15 gm 09/14/18 02/14/19 Rx mcg/actuation aerosol inhaler riboflavin (vitamin B2) 100 mg 200 mg PO QAM tab 10/11/18 02/14/19 History tablet budesonide-formoterol HFA 160 2 puffs INH Q12H #10.2 gm 01/02/19 02/14/19 Rx mcg-4.5 mcg/actuation aerosol inhaler clotrimazole 10 mg elan 10 mg MUCOUS MEMBRANE TID #90 tab 01/20/19 02/14/19 Rx Lactobacillus rhamnosus GG 1 cap PO QAM 02/14/19 02/14/19 History [Culturelle] ascorbic acid (vitamin C) 100 mg PO QAM 02/14/19 02/14/19 History esomeprazole magnesium [Nexium] 20 mg PO QAM 02/14/19 02/14/19 History byfpnfwlzumw-Vj-yagq-minerals 1 tab PO QAM 02/14/19 02/14/19 History [Multiple Vitamin, Womens] Allergies Allergy/AdvReac Type Severity Reaction Status Date / Time bee pollen Allergy Severe Verified 02/14/19 11:00 Penicillins Allergy Severe Verified 02/14/19 11:00 aspirin Allergy Intermediate asthma Verified 02/14/19 11:00 attack ibuprofen Allergy Intermediate ASTHMA Verified 02/14/19 11:00 ATTACK fluconazole AdvReac Sick, Verified 02/14/19 11:00 dizziness Past Med/Surg History Medical History (Updated 02/14/19 @ 15:44 by Kamran Conroy MD) Asthma History of vaginal delivery Surgical History S/P bronchoscopy S/P endometrial ablation S/P nasal septoplasty Family History Mother Asthma Dermatomyositis Father FH: deafness or hearing loss Hypertension Family history unknown Grandmother Lung cancer Breast cancer, Onset Age: 35 paternal - unsure if completed genetic testing Grandfather Myocardial infarction Aunt Breast cancer maternal Family/Other Breast cancer maternal Other Prostate cancer Social History Feels Safe at Home: Yes Smoking Status: Never smoker Hx Alcohol Use: Yes Hx Substance Use: No Review of Systems See HPI for pertinent positives & negatives. and A total of 10 systems reviewed and were otherwise negative Physical Exam Vital Signs Vital Signs - 24 hr 02/14/19 10:10 Temperature 36.7 C Temperature Source Oral Pulse Rate 131 H Respiratory Rate 18 Respiratory Depth Normal Blood Pressure 138/97 Blood Pressure Mean 110 Pulse Oximetry 99 Oxygen Delivery Method Room Air Sepsis Recent Fever Within 48 Hours No Sepsis New/Unexplained Change in Mental Status No Sepsis Action Taken by Nursing No Action Required Constitutional: Vital signs reviewed. Eyes: Pupils are equal round reactive to light. Conjunctiva are noninjected. ENT: Pharynx is clear without erythema or exudate. Mucous membranes are moist. Neck supple without meningeal signs. Respiratory: Clear to auscultation bilaterally. Breath sounds are equal bilaterally. Cardiovascular: Tachycardic rate of 120. Regular rhythm. No rubs or gallops. GI: Soft and nondistended. Left lower quadrant tenderness, no guarding. Bowel sounds are present. Musculoskeletal: No peripheral edema. No lower extremity tenderness. Lower left paravertebral tenderness. Positive straight leg raise, greater on on the left side. Integumentary: No cyanosis. Neurological: The patient is awake and alert. No focal deficits. Psychiatric: Normal affect. Course Course 1031: The patient was evaluated in room A04B. A complete history and physical exam was performed. 1214: I reassessed the patient, and she stated that she was feeling better. 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 I discussed the test results with her, and she is agreeable to CT. 1259: The patient stated that she recently had her immune system checked by an electronic resources librarian after frequent thrush. She denied any recent injections to the area. 1302: I reviewed the patient's EMR again. She had IG levels taken on 11/07, and they were all normal. However, her IGE was elevated in August. 1308: I spoke with Dr. Nieves, radiology, about the patients case. He didnt see anything in the L-spine, and there doesnt appear to be a significant drainable fluid collection. 1318: I spoke with Devang from [facility], and they will evaluate the patient. 1320: I spoke with Dr. Hilda Flood, [facility] hospitalist, about the patient's case. She will further evaluate the patient. 1326: I updated the patient on the plan, and she was in agreement with the plan. Administered Medications Vancomycin HCl 1,500 mg/ (Sodium Chloride) 530 mls @ 200 mls/hr IV NOW ONE Stop: 02/14/19 15:43 Last Admin: 02/14/19 14:05 Dose: 200 mls/hr Documented by: [id number] Ioversol (Optiray 320 100ml) 94 ml IV ONCE PRN PRN Reason: Interaction Checking Stop: 02/18/19 12:28 Last Admin: 02/14/19 12:29 Dose: 94 ml Documented by: [id number] Discontinued Medications Sodium Chloride (Nss 1000ml) 1,000 mls @ 999 mls/hr IV .Q1H1M ONE Stop: 02/14/19 11:38 Last Infusion: 02/14/19 13:12 Dose: 0 mls/hr Documented by: [id number] Admin: 02/14/19 12:08 Dose: 999 mls/hr Documented by: [id number] Cefoxitin Sodium (Mefoxin) 2,000 mg in 60 mls @ 100 mls/hr IV NOW STA Stop: 02/14/19 13:40 Last Infusion: 02/14/19 14:05 Dose: 0 mls/hr Documented by: [id number] Admin: 02/14/19 13:33 Dose: 100 mls/hr Documented by: [id number] Morphine Sulfate (Morphine Sulfate) 4 mg IV NOW STA Stop: 02/14/19 10:39 Last Admin: 02/14/19 12:07 Dose: 4 mg Documented by: [id number] Ondansetron HCl (Zofran) 4 mg IV NOW STA Stop: 02/14/19 10:39 Last Admin: 02/14/19 12:08 Dose: 4 mg Documented by: [id number] Medical Decision Making Differential Diagnosis The differential diagnosis includes: lumbar disc disease, pathologic fracture, ovarian cyst, ectopic , kidney stone, and UTI Medical Records Attestation: I reviewed the patient's medical records. I did perform a limited focused review of portions of the patient's old chart on the electronic medical record. Per the patient's EMR, the patient was seen by OBGYN in December for menorrhagia. They were considering a possible hysterectomy for failed endometrial ablation. Home Medications Current Medication List: was personally reviewed by me Laboratory Data Attestation: I reviewed the patient's lab results. Result diagrams: 02/14/19 10:45 02/14/19 10:45 Lab Results 02/14/19 02/14/19 02/14/19 Range/Units 10:45 10:45 10:45 WBC 9.55 (4.8-10.8) K/uL RBC 4.83 (4.2-5.4) M/uL Hgb 15.3 (12.0-16.0) g/dL Hct 46.0 (37-47) % MCV 95.2 (80-100) fL MCH 31.7 (25-34) pg MCHC 33.3 (32-36) g/dL RDW Std Deviation 44.9 (36.4-46.3) fL RDW Coeff of Raquel 12.9 (11.5-14.5) % Plt Count 260 (130-400) K/uL MPV 11.0 H (7.4-10.4) fL Immature Gran % (Auto) 0.2 % Neut % (Auto) 80.4 % Lymph % (Auto) 11.5 % [place] % (Auto) 6.4 % Eos % (Auto) 1.3 % Baso % (Auto) 0.2 % Immature Gran # (Auto) 0.02 (0.00-0.02) K/uL Neut # (Auto) 7.68 H (1.4-6.5) K/uL Lymph # (Auto) 1.10 L (1.2-3.4) K/uL [place] # (Auto) 0.61 H (0.11-0.59) K/uL Eos # (Auto) 0.12 (0-0.5) K/uL Baso # (Auto) 0.02 (0-0.2) K/uL Sodium 137 (136-145) mmol/L Potassium 4.7 (3.5-5.1) mmol/L Chloride 109 H (98-107) mmol/L Carbon Dioxide 26 (21-32) mmol/L Anion Gap 2.0 L (3-11) BUN 17 (7-18) mg/dl Creatinine 0.79 (0.6-1.2) mg/dl Est Cr Clr Drug Dosing 83.4 ml/min Est GFR ( Amer) 110.1 Est GFR (Non-Af Amer) 95.0 BUN/Creatinine Ratio 21.0 H (10-20) Glucose 102 H (70-99) mg/dl Calcium 9.3 (8.5-10.1) mg/dl Total Bilirubin 0.2 (0.2-1) mg/dl AST 14 L (15-37) U/L ALT 15 (12-78) U/L Alkaline Phosphatase 69 (45-117) U/L Total Protein 7.7 (6.4-8.2) gm/dl Albumin 3.7 (3.4-5.0) gm/dl Globulin 4.0 (2.5-4.0) gm/dl Albumin/Globulin Ratio 0.9 (0.9-2) Lipase 221 (73-393) U/L Urine Color Urine Appearance (Clear) Urine pH (4.5-7.5) Ur Specific [place] (1.000-1.030) Urine Protein (Negative) Urine Glucose (UA) (Negative) Urine Ketones (Negative) Urine Blood (Negative) Urine Nitrite (Negative) Urine Bilirubin (Negative) Urine Urobilinogen (Negative) Ur Leukocyte Esterase (Negative) Urine WBC (Auto) (0-5) /hpf Urine RBC (Auto) (0-4) /hpf U Hyaline Cast (Auto) (0-5) /lpf U Epithel Cells (Auto) (0-5) /lpf Urine Bacteria (Auto) (Negative) POC Ur Test NEG (NEG) 02/14/19 Range/Units 10:45 WBC (4.8-10.8) K/uL RBC (4.2-5.4) M/uL Hgb (12.0-16.0) g/dL Hct (37-47) % MCV (80-100) fL MCH (25-34) pg MCHC (32-36) g/dL RDW Std Deviation (36.4-46.3) fL RDW Coeff of Raquel (11.5-14.5) % Plt Count (130-400) K/uL MPV (7.4-10.4) fL Immature Gran % (Auto) % Neut % (Auto) % Lymph % (Auto) % [place] % (Auto) % Eos % (Auto) % Baso % (Auto) % Immature Gran # (Auto) (0.00-0.02) K/uL Neut # (Auto) (1.4-6.5) K/uL Lymph # (Auto) (1.2-3.4) K/uL [place] # (Auto) (0.11-0.59) K/uL Eos # (Auto) (0-0.5) K/uL Baso # (Auto) (0-0.2) K/uL Sodium (136-145) mmol/L Potassium (3.5-5.1) mmol/L Chloride (98-107) mmol/L Carbon Dioxide (21-32) mmol/L Anion Gap (3-11) BUN (7-18) mg/dl Creatinine (0.6-1.2) mg/dl Est Cr Clr Drug Dosing ml/min Est GFR ( Amer) Est GFR (Non-Af Amer) BUN/Creatinine Ratio (10-20) Glucose (70-99) mg/dl Calcium (8.5-10.1) mg/dl Total Bilirubin (0.2-1) mg/dl AST (15-37) U/L ALT (12-78) U/L Alkaline Phosphatase (45-117) U/L Total Protein (6.4-8.2) gm/dl Albumin (3.4-5.0) gm/dl Globulin (2.5-4.0) gm/dl Albumin/Globulin Ratio (0.9-2) Lipase (73-393) U/L Urine Color Dark Yellow Urine Appearance Cloudy A (Clear) Urine pH 7.5 (4.5-7.5) Ur Specific [place] 1.024 (1.000-1.030) Urine Protein Negative (Negative) Urine Glucose (UA) Negative (Negative) Urine Ketones Negative (Negative) Urine Blood Negative (Negative) Urine Nitrite Negative (Negative) Urine Bilirubin Negative (Negative) Urine Urobilinogen Negative (Negative) Ur Leukocyte Esterase 1+ H (Negative) Urine WBC (Auto) 10-30 H (0-5) /hpf Urine RBC (Auto) 0-4 (0-4) /hpf U Hyaline Cast (Auto) 0 (0-5) /lpf U Epithel Cells (Auto) >30 H (0-5) /lpf Urine Bacteria (Auto) Negative (Negative) POC Ur Test (NEG) Imaging Data Radiologist's Impression: Radiology results as stated below per my review and the radiologist's interpretation: LUMBAR SPINE 3 VIEWS CLINICAL HISTORY: Low back pain. FINDINGS: 3 views of the lumbar spine are obtained. The skeletal structures are well mineralized. There is no radiographic evidence of fracture or malalignment. Vertebral body height and alignment are maintained. The transverse and spinous processes are intact. The intervertebral disc spaces are well-maintained. The visualized bony pelvis appears intact. There is a nonobstructed abdominal bowel gas pattern. Moderate fecal retention is noted in the colon. Phleboliths are noted in the pelvis. IMPRESSION: Unremarkable radiographic evaluation of the lumbar spine. ACT 112: Negative or not required by law. Electronically signed by: Devang Nieves M.D. 02/14/2019 12:03 PM ULTRASOUND OF THE PELVIS CLINICAL HISTORY: Left pelvic pain. COMPARISON STUDY: Pelvic ultrasound dated 12/19/2018. TECHNIQUE: Real-time, grayscale, and color flow sonography of the pelvis is performed both transabdominally and endovaginally. Images are reviewed in the transverse and longitudinal planes. The endovaginal examination was performed for better assessment of the ovaries and adnexa. FINDINGS: Uterus: The uterus is normal in size and echotexture, measuring 8.9 x 4.4 x 5.0 cm. Endometrium: The endometrium is normal in appearance, and the endometrial stripe is normal in thickness measuring up to 0.7 cm. Ovaries: The ovaries are normal in size and morphology. The right ovary measures 2.6 x 1.5 x 2.9 cm and the left ovary measures 4.4 x 2.2 x 2.2 cm. Small f ollicles are noted bilaterally. Normal Doppler waveforms are shown within both ovaries. Pelvis: There is no free fluid in the cul-de-sac. No concerning adnexal lesion is seen. A shadowing bowel loop is noted in the left lower quadrant. IMPRESSION: 1. Unremarkable sonographic assessment of the pelvic viscera. 2. A shadowing loop of bowel is identified left lower quadrant, and the patient is focally tender at this site. ACT 112: Negative or not required by law. Electronically signed by: Devang Nieves M.D. 02/14/2019 12:07 PM ULTRASOUND KIDNEYS AND BLADDER CLINICAL HISTORY: Left flank pain. COMPARISON STUDY: Abdominal radiograph dated 12/17/2015. TECHNIQUE: Real-time, grayscale, and color flow sonography of the kidneys and bladder is performed. Images are reviewed in the transverse and longitudinal planes. FINDINGS: Kidneys: The kidneys are normal in size and echotexture. The right kidney measures 12.7 cm in length and the left kidney measures 11.6 cm in length. There is no hydronephrosis. No shadowing renal calculi are identified. There is no sonographic evidence of contour deforming renal mass lesion. No perinephric fluid is identified. Bladder: The bladder is normal in appearance. Bilateral ureteral jets were seen. IMPRESSION: Unremarkable sonographic assessment of the kidneys and bladder. ACT 112: Negative or not required by law. Electronically signed by: Devang Nieves M.D. 02/14/2019 12:[address] SCAN OF THE ABDOMEN AND PELVIS WITH IV CONTRAST CLINICAL HISTORY: Left lower quadrant abdominal pain. COMPARISON STUDY: Pelvic and renal ultrasound performed the same day 02/14/2019. TECHNIQUE: Following the IV administration of 94 cc of Optiray 320, CT scan of the abdomen and pelvis is performed from the lung bases to the proximal femora. Images are reviewed in the axial, sagittal, and coronal planes. IV contrast was administered without complication. A dose lowering technique was utilized adhering to the principles of ALARA. CT DOSE: 261.99 mGy.cm FINDINGS: Lung bases: The heart is normal in size and without pericardial effusion. The lung bases are clear noting dependent atelectasis. Liver: The contrast-enhanced liver is normal in size, contour, and attenuation. There is no intrahepatic biliary ductal dilatation. The hepatic veins and portal veins are patent. Gallbladder: Unremarkable. Spleen: Normal in size and attenuation. Pancreas: Unremarkable. Adrenal glands: Unremarkable. Kidneys: The contrast enhanced kidneys are normal in size and without hy dronephrosis. The kidneys enhance symmetrically. Abdominal vasculature: The abdominal aorta is normal in course and caliber. Bowel: There is moderate to severe constipation. No bowel obstruction is seen. The appendix is well-visualized and normal. Peritoneum: There is no intraperitoneal free air or abdominal ascites. There is a fat-containing umbilical hernia. Lymphadenopathy: None. Pelvic viscera: The bladder, uterus, and adnexa are normal as visualized noting bilateral ovarian follicles. There is mild heterogeneity of the left iliopsoas musculature with faint surrounding inflammatory change. No intramuscular hematoma is identified. A 1.5 cm abscess is suggested in the left psoas muscle on image #186. Skeletal structures: No lytic or blastic lesions are seen. IMPRESSION: 1. There is mild heterogeneity of the left iliopsoas musculature with faint surrounding inflammation. Correlate clinically for evidence of a nonspecific myositis. 2. A 1.5 cm abscess is suggested in the left psoas muscle. 3. Moderate to severe constipation. ACT 112: Positive. There are findings on this exam that require communication between the performing entity and the patient following Patient Test Result Information Act ([place] Act 112) guidelines. Electronically signed by: Devang Nieevs M.D. 02/14/2019 12:40 PM Blood Pressure Blood Pressure Findings: Elevated blood pressure Blood Pressure Disposition: Referred to patients primary care provider MDM Narrative I did evaluate the patient as noted above. The patient is presenting with left low back pain rating into her abdomen. She is tender in the left lower abdomen. IV access was established. The patient was placed on a continuous awake overnight monitor. I did treat her with IV morphine and Zofran. She was also given normal saline IV. Urine test is negative. I did order and personally reviewed the images of the patient's lumbar spine x-rays. She has no evidence of fracture or dislocation.. I did order a urine analysis. I did order and review the patient's blood work as noted in the electronic medical record. Her white blood cell count is not elevated. She is not anemic. Electrolytes are u nremarkable. I did order an ultrasound of the pelvis as well as the kidneys. There is no evidence of hydronephrosis or kidney stone. There is no evidence of acute pelvic abnormality. They did note that she had focal tenderness over a bowel loop. I did reassess the patient. I did discuss the test results with her. She continues to have tenderness and so I did recommend a CT of the abdomen and pelvis. I did order a CT of the abdomen and pelvis. I did review the images myself as well as the radiology report as described above. She has what appears to be left iliopsoas myositis and a small 1.5 cm abscess. I did talk to the radiologist about the CT scan. He did not feel there was a clyde inable fluid collection. He did not see any signs of infection to adjacent structures such as the lumbar spine. I did discuss the case with orthopedics who will consult on the patient. I did treat the patient with IV vancomycin and cefoxitin after ordering blood cultures. I did discuss the case with the hospitalist and disease case manager. Impression & Plan Psoas muscle abscess, Myositis Discharge Plan Visit Data *Final* Discharge Date/Time: 02/14/19 15:16 Chief Complaint: Abdominal Pain Stated Complaint: SEVERE LOWER L ABD PAIN GETTING WORSE ED Provider: Kamran Conroy Discharge Problem: Psoas muscle abscess, Myositis Patient Disposition: Admitted As Inpatient Discharge Instructions Interventions: ED Discharge Assessment Last Done: 02/14/19 15:16 Discharge Problem: Myositis Qualifiers: Myositis type: unspecified type Myositis location: lower extremity Laterality: left Qualified Code(s): M60.9 - Myositis, unspecified The mayelinibe's documentation has been prepared under my direction and personally reviewed by me in its entirety. I confirm that the note above accurately reflects all work, treatment, procedures, and medical decision making performed by me.
--- NOTE | 2019-02-14 14:25 | History & Physical Report ---
Date of Service February 14, 2019 Assessment & Plan (1) Psoas muscle abscess: 38-year-old female presenting with left groin, leg and abdominal pain. Found to have a 1.5 cm abscess in the left psoas muscle. Patient is afebrile, hemodynamically stable, nontoxic in appearance with no complaints consistent with systemic infection. She has no known risk factors for psoas abscess. Specifically, no recent trauma/surgery/intervention. No recent illness or infection. No history of IV drug abuse, needle sticks, unprotected sex or other HIV risk factors. She has multiple tattoos, none recently. All acquired from reputable places. Family history of dermatomyositis in her mother. Question infectious source of abscess versus inflammatory/autoimmune etiology. Admit to medical floor -Follow blood cultures sent from ER -We will check muscle enzymes, LDH, CK, aldolase Check RONAL and anti-Sarai antibody for possible dermatomyositis -Check HIV although patient with no risk factors. Some concern over her immune status. -IV antibiotics with cefoxitin and vancomycin General surgery consultation for possible abscess drainage Present on Admission?: Yes (2) Myositis: Infectious versus inflammatory as mentioned above. Patient is afebrile, hemodynamically stable, nontoxic in appearance Follow cultures as sent by ER Follow muscle enzymes and antibody testing as described above Tylenol as needed for pain Present on Admission?: Yes (3) Candidiasis of mouth: Oral candidiasis intermittent for the last 6 months. She had serious side effects from fluconazole and mild side effects from nystatin. Presently taking clotrimazole. No evidence of thrush on exam today. She reports using a spacer and rinsing her mouth/brushing her teeth after using her inhaled steroid. Continue clotrimazole troches 10 mg 3 times daily Present on Admission?: Yes (4) Asthma, severe persistent: Patient with longstanding history of severe persistent asthma since childhood. She has been tried on numerous medications in the past including Xolair with minimal relief. She had bronchial thermoplasty performed in [place] for years ago with improvement in asthma symptoms. She has seen allergy/immunology in the past and was told she has multiple allergies. She follows with pulmonary, Dr. Bucio, last seen in October 2018. Symptoms presently well controlled. No shortness of breath, cough, wheeze. Possibly some component of vocal cord dysfunction as well. Continue budesonide/formoterol Continue Xopenex Continue to monitor Present on Admission?: Yes (5) Constipation: Patient with fairly large stool burden noted on CT. Patient with no complaints. Colace as needed MiraLAX as needed Consider suppository and enema if above measures unsuccessful F/E/N - Heplock. Electrolytes WNL. Regular diet as tolerated Ppx - Lovenox Code - Full Dispo - Admit to medical floor Present on Admission?: Yes History of Present Illness Chief Complaint: Left hip pain, abdominal pain Primary Care Provider: Justine Hunt MD Devaughn Carlson is a pleasant 38-year-old female with history of severe persistent asthma on Budesonide/Formoterol, oral thrush on Clotrimazole presenting with left groin and leg pain. Patient states that 4 days ago she developed pain in her left lower quadrant. She thought that she may have pulled a muscle therefore she was treating it conservatively with rest. However, the pain intensified and began to involve the left leg and radiation across the lower abdomen. Pain is severe, patient having difficulty sleeping and performing ADLs. Also having difficulty lifting her leg and ambulating. She denies fever but has had occasional chills and sweats. Denies weight changes. Denies chest pain, shortness of breath, abdominal pain, nausea, vomiting, diarrhea, constipation. No dysuria, hematuria. ER work-up suggestive of abscess of the left psoas muscle associated with myositis. Patient with history of severe, persistent asthma. She follows with pulmonary. Presently managed with budesonide/formoterol and Xopenex. She has had significant difficulty with oral thrush over the past 6 months. She was i nitially treated with fluconazole which resulted in a serious reaction. Also mild reaction from nystatin. She is presently on clotrimazole. There is been some mention of concern over her immune system. She has had frequent infections in the past. She has seen allergy/immunology, last on 01/18/2019. ER course: Vancomycin, cefoxitin, normal saline, morphine, Zofran Allergies Allergy/AdvReac Type Severity Reaction Status Date / Time bee pollen Allergy Severe Verified 02/14/19 11:00 Penicillins Allergy Severe Verified 02/14/19 11:00 aspirin Allergy Intermediate asthma Verified 02/14/19 11:00 attack ibuprofen Allergy Intermediate ASTHMA Verified 02/14/19 11:00 ATTACK fluconazole AdvReac Sick, Verified 02/14/19 11:00 dizziness Home Medications Home Medications Medication Instructions Recorded Confirmed Type levalbuterol HCl 0.63 mg/3 mL 0.63 mg INH Q4H PRN #120 vial 09/14/18 02/14/19 Rx solution for nebulization levalbuterol tartrate 45 2 puffs INH Q4H PRN #15 gm 09/14/18 02/14/19 Rx mcg/actuation aerosol inhaler riboflavin (vitamin B2) 100 mg 200 mg PO QAM tab 10/11/18 02/14/19 History tablet budesonide-formoterol HFA 160 2 puffs INH Q12H #10.2 gm 01/02/19 02/14/19 Rx mcg-4.5 mcg/actuation aerosol inhaler clotrimazole 10 mg elan 10 mg MUCOUS MEMBRANE TID #90 tab 01/20/19 02/14/19 Rx Lactobacillus rhamnosus GG 1 cap PO QAM 02/14/19 02/14/19 History [Culturelle] ascorbic acid (vitamin C) 100 mg PO QAM 02/14/19 02/14/19 History esomeprazole magnesium [Nexium] 20 mg PO QAM 02/14/19 02/14/19 History qlvxtixwlmln-Li-rwyl-minerals 1 tab PO QAM 02/14/19 02/14/19 History [Multiple Vitamin, Womens] Past Med/Surg History Medical History (Updated 02/14/19 @ 17:58 by Colette Flood DO) Asthma Candidiasis of mouth History of vaginal delivery Surgical History (Updated 02/14/19 @ 17:43 by Colette Flood DO) S/P bronchoscopy Bronchial thermoplasty S/P endometrial ablation S/P nasal septoplasty Family History Mother Asthma Dermatomyositis Father FH: deafness or hearing loss Hypertension Family history unknown Grandmother Lung cancer Breast cancer, Onset Age: 35 paternal - unsure if completed genetic testing Grandfather Myocardial infarction Aunt Breast cancer maternal Family/Other Breast cancer maternal Other Prostate cancer Social History (Updated 02/14/19 @ 17:43 by Colette Flood DO) Preferred Language: Stateless Communication Ability: Effective Weatherization Technician Required: No Current Living Situation: Family Other Information That Helps Us Care for You: No Feels Safe at Home: Yes Smoking Status: Never smoker Do You Dip or Chew Tobacco: No ; Second Hand Exposure: No ; Tobacco Cessation Education Requested by Patient: No Hx Alcohol Use: Yes Alcohol type: wine Hx Substance Use: No Review of Systems Review of Systems: All systems reviewed & are unremarkable except as noted in HPI & below +occasional palpitations +chills, sweats +sore throat Denies skin rashes, arthritis or arthralgias Physical Exam Physical Exam: General: patient resting comfortably, anxious in appearance, no acute distress, nontoxic, AA&O x 4 Skin: warm, dry, intact, no rashes or lesions, numerous tattoos HEENT: NC/AT, PERRL, EOMI, anicteric sclera, conjunctiva without injection, external ear normal to inspection and nontender, nares patent, moist mucus membranes, dentition intact, no oropharyngeal lesions, neck supple, trachea midline, no LAD, no thyromegaly, no JVD Heart: +S1/S2, regular, no m/r/g Lungs: equal air entry bilaterally, no rales/rhonchi/wheezes Abd: +BS, soft, NT/ND, no masses/organomegaly/ascites Ext: warm, 2+ pulses in UE/LE bilaterally, no clubbing/cyanosis or edema Left lower extremity thigh muscle slightly warm, soft to palpation, tender and mildly edematous. No crepitus, no fluctuance. Neuro: nonfocal, patient AA&O x 4, speech intact, no facial droop, moving all extremities on command with equal strength 5/5 Results & Data Vital Signs (Past 12 Hours) Vital Signs Temp Pulse Resp BP Pulse Ox 02/14/19 10:10 36.7 C 131 H 18 138/97 99 Laboratory Results Lab Results 02/14/19 02/14/19 02/14/19 Range/Units 10:45 10:45 10:45 WBC 9.55 (4.8-10.8) K/uL RBC 4.83 (4.2-5.4) M/uL Hgb 15.3 (12.0-16.0) g/dL Hct 46.0 (37-47) % MCV 95.2 (80-100) fL MCH 31.7 (25-34) pg MCHC 33.3 (32-36) g/dL RDW Std Deviation 44.9 (36.4-46.3) fL RDW Coeff of Raquel 12.9 (11.5-14.5) % Plt Count 260 (130-400) K/uL MPV 11.0 H (7.4-10.4) fL Immature Gran % (Auto) 0.2 % Neut % (Auto) 80.4 % Lymph % (Auto) 11.5 % Winn % (Auto) 6.4 % Eos % (Auto) 1.3 % Baso % (Auto) 0.2 % Immature Gran # (Auto) 0.02 (0.00-0.02) K/uL Neut # (Auto) 7.68 H (1.4-6.5) K/uL Lymph # (Auto) 1.10 L (1.2-3.4) K/uL Winn # (Auto) 0.61 H (0.11-0.59) K/uL Eos # (Auto) 0.12 (0-0.5) K/uL Baso # (Auto) 0.02 (0-0.2) K/uL Sodium 137 (136-145) mmol/L Potassium 4.7 (3.5-5.1) mmol/L Chloride 109 H (98-107) mmol/L Carbon Dioxide 26 (21-32) mmol/L Anion Gap 2.0 L (3-11) BUN 17 (7-18) mg/dl Creatinine 0.79 (0.6-1.2) mg/dl Est Cr Clr Drug Dosing 83.4 ml/min Est GFR ( Amer) 110.1 Est GFR (Non-Af Amer) 95.0 BUN/Creatinine Ratio 21.0 H (10-20) Glucose 102 H (70-99) mg/dl Calcium 9.3 (8.5-10.1) mg/dl Phosphorus (2.5-4.9) mg/dl Magnesium (1.8-2.4) mg/dl Total Bilirubin 0.2 (0.2-1) mg/dl AST 14 L (15-37) U/L ALT 15 (12-78) U/L Alkaline Phosphatase 69 (45-117) U/L Lactate Dehydrogenase (84-246) U/L Total Creatine Kinase (26-192) U/L Total Protein 7.7 (6.4-8.2) gm/dl Albumin 3.7 (3.4-5.0) gm/dl Globulin 4.0 (2.5-4.0) gm/dl Albumin/Globulin Ratio 0.9 (0.9-2) Lipase 221 (73-393) U/L Urine Color Urine Appearance (Clear) Urine pH (4.5-7.5) Ur Specific Milton (1.000-1.030) Urine Protein (Negative) Urine Glucose (UA) (Negative) Urine Ketones (Negative) Urine Blood (Negative) Urine Nitrite (Negative) Urine Bilirubin (Negative) Urine Urobilinogen (Negative) Ur Leukocyte Esterase (Negative) Urine WBC (Auto) (0-5) /hpf Urine RBC (Auto) (0-4) /hpf U Hyaline Cast (Auto) (0-5) /lpf U Epithel Cells (Auto) (0-5) /lpf Urine Bacteria (Auto) (Negative) POC Ur Test NEG (NEG) HIV 1&2 Ab/P24 Ag 4thGn (Neg) 02/14/19 02/14/19 02/14/19 Range/Units 10:45 16:06 16:06 WBC (4.8-10.8) K/uL RBC (4.2-5.4) M/uL Hgb (12.0-16.0) g/dL Hct (37-47) % MCV (80-100) fL MCH (25-34) pg MCHC (32-36) g/dL RDW Std Deviation (36.4-46.3) fL RDW Coeff of Raquel (11.5-14.5) % Plt Count (130-400) K/uL MPV (7.4-10.4) fL Immature Gran % (Auto) % Neut % (Auto) % Lymph % (Auto) % Winn % (Auto) % Eos % (Auto) % Baso % (Auto) % Immature Gran # (Auto) (0.00-0.02) K/uL Neut # (Auto) (1.4-6.5) K/uL Lymph # (Auto) (1.2-3.4) K/uL Winn # (Auto) (0.11-0.59) K/uL Eos # (Auto) (0-0.5) K/uL Baso # (Auto) (0-0.2) K/uL Sodium (136-145) mmol/L Potassium (3.5-5.1) mmol/L Chloride (98-107) mmol/L Carbon Dioxide (21-32) mmol/L Anion Gap (3-11) BUN (7-18) mg/dl Creatinine (0.6-1.2) mg/dl Est Cr Clr Drug Dosing ml/min Est GFR ( Amer) Est GFR (Non-Af Amer) BUN/Creatinine Ratio (10-20) Glucose (70-99) mg/dl Calcium (8.5-10.1) mg/dl Phosphorus 2.9 (2.5-4.9) mg/dl Magnesium 1.8 (1.8-2.4) mg/dl Total Bilirubin (0.2-1) mg/dl AST (15-37) U/L ALT (12-78) U/L Alkaline Phosphatase (45-117) U/L Lactate Dehydrogenase 123 (84-246) U/L Total Creatine Kinase 48 (26-192) U/L Total Protein (6.4-8.2) gm/dl Albumin (3.4-5.0) gm/dl Globulin (2.5-4.0) gm/dl Albumin/Globulin Ratio (0.9-2) Lipase (73-393) U/L Urine Color Dark Yellow Urine Appearance Cloudy A (Clear) Urine pH 7.5 (4.5-7.5) Ur Specific Milton 1.024 (1.000-1.030) Urine Protein Negative (Negative) Urine Glucose (UA) Negative (Negative) Urine Ketones Negative (Negative) Urine Blood Negative (Negative) Urine Nitrite Negative (Negative) Urine Bilirubin Negative (Negative) Urine Urobilinogen Negative (Negative) Ur Leukocyte Esterase 1+ H (Negative) Urine WBC (Auto) 10-30 H (0-5) /hpf Urine RBC (Auto) 0-4 (0-4) /hpf U Hyaline Cast (Auto) 0 (0-5) /lpf U Epithel Cells (Auto) >30 H (0-5) /lpf Urine Bacteria (Auto) Negative (Negative) POC Ur Test (NEG) HIV 1&2 Ab/P24 Ag 4thGn (Neg) 02/14/19 Range/Units 16:06 WBC (4.8-10.8) K/uL RBC (4.2-5.4) M/uL Hgb (12.0-16.0) g/dL Hct (37-47) % MCV (80-100) fL MCH (25-34) pg MCHC (32-36) g/dL RDW Std Deviation (36.4-46.3) fL RDW Coeff of Raquel (11.5-14.5) % Plt Count (130-400) K/uL MPV (7.4-10.4) fL Immature Gran % (Auto) % Neut % (Auto) % Lymph % (Auto) % Winn % (Auto) % Eos % (Auto) % Baso % (Auto) % Immature Gran # (Auto) (0.00-0.02) K/uL Neut # (Auto) (1.4-6.5) K/uL Lymph # (Auto) (1.2-3.4) K/uL Winn # (Auto) (0.11-0.59) K/uL Eos # (Auto) (0-0.5) K/uL Baso # (Auto) (0-0.2) K/uL Sodium (136-145) mmol/L Potassium (3.5-5.1) mmol/L Chloride (98-107) mmol/L Carbon Dioxide (21-32) mmol/L Anion Gap (3-11) BUN (7-18) mg/dl Creatinine (0.6-1.2) mg/dl Est Cr Clr Drug Dosing ml/min Est GFR ( Amer) Est GFR (Non-Af Amer) BUN/Creatinine Ratio (10-20) Glucose (70-99) mg/dl Calcium (8.5-10.1) mg/dl Phosphorus (2.5-4.9) mg/dl Magnesium (1.8-2.4) mg/dl Total Bilirubin (0.2-1) mg/dl AST (15-37) U/L ALT (12-78) U/L Alkaline Phosphatase (45-117) U/L Lactate Dehydrogenase (84-246) U/L Total Creatine Kinase (26-192) U/L Total Protein (6.4-8.2) gm/dl Albumin (3.4-5.0) gm/dl Globulin (2.5-4.0) gm/dl Albumin/Globulin Ratio (0.9-2) Lipase (73-393) U/L Urine Color Urine Appearance (Clear) Urine pH (4.5-7.5) Ur Specific Milton (1.000-1.030) Urine Protein (Negative) Urine Glucose (UA) (Negative) Urine Ketones (Negative) Urine Blood (Negative) Urine Nitrite (Negative) Urine Bilirubin (Negative) Urine Urobilinogen (Negative) Ur Leukocyte Esterase (Negative) Urine WBC (Auto) (0-5) /hpf Urine RBC (Auto) (0-4) /hpf U Hyaline Cast (Auto) (0-5) /lpf U Epithel Cells (Auto) (0-5) /lpf Urine Bacteria (Auto) (Negative) POC Ur Test (NEG) HIV 1&2 Ab/P24 Ag 4thGn Neg (Neg) Diagnostic Findings LUMBAR SPINE 3 VIEWS CLINICAL HISTORY: Low back pain. FINDINGS: 3 views of the lumbar spine are obtained. The skeletal structures are well mineralized. There is no radiographic evidence of fracture or malalignment. Vertebral body height and alignment are maintained. The transverse and spinous processes are intact. The intervertebral disc spaces are well-maintained. The visualized bony pelvis appears intact. There is a nonobstructed abdominal bowel gas pattern. Moderate fecal retention is noted in the colon. Phleboliths are noted in the pelvis. IMPRESSION: Unremarkable radiographic evaluation of the lumbar spine. ACT 112: Negative or not required by law. Electronically signed by: Devang Nieves M.D. 02/14/2019 12:03 PM Dictated: 02/14/191200 Transcribed: 02/14/19 120 ULTRASOUND OF THE PELVIS CLINICAL HISTORY: Left pelvic pain. COMPARISON STUDY: Pelvic ultrasound dated 12/19/2018. TECHNIQUE: Real-time, grayscale, and color flow sonography of the pelvis is performed both transabdominally and endovaginally. Images are reviewed in the t ransverse and longitudinal planes. The endovaginal examination was performed for better assessment of the ovaries and adnexa. FINDINGS: Uterus: The uterus is normal in size and echotexture, measuring 8.9 x 4.4 x 5.0 cm. Endometrium: The endometrium is normal in appearance, and the endometrial stripe is normal in thickness measuring up to 0.7 cm. Ovaries: The ovaries are normal in size and morphology. The right ovary measures 2.6 x 1.5 x 2.9 cm and the left ovary measures 4.4 x 2.2 x 2.2 cm. Small follicles are noted bilaterally. Normal Doppler waveforms are shown within both ovaries. Pelvis: There is no free fluid in the cul-de-sac. No concerning adnexal lesion is seen. A shadowing bowel loop is noted in the left lower quadrant. IMPRESSION: 1. Unremarkable sonographic assessment of the pelvic viscera. 2. A shadowing loop of bowel is identified left lower quadrant, and the patient is focally tender at this site. ACT 112: Negative or not required by law. Electronically signed by: Devang Nieves M.D. 02/14/2019 12:07 PM Dictated: 02/14/19 1205 ULTRASOUND KIDNEYS AND BLADDER CLINICAL HISTORY: Left flank pain. COMPARISON STUDY: Abdominal radiograph dated 12/17/2015. TECHNIQUE: Real-time, grayscale, and color flow sonography of the kidneys and bladder is performed. Images are reviewed in the transverse and longitudinal planes. FINDINGS: Kidneys: The kidneys are normal in size and echotexture. The right kidney measures 12.7 cm in length and the left kidney measures 11.6 cm in length. There is no hydronephrosis. No shadowing renal calculi are identified. There is no sonographic evidence of contour deforming renal mass lesion. No perinephric fluid is identified. Bladder: The bladder is normal in appearance. Bilateral ureteral jets were seen. IMPRESSION: Unremarkable sonographic assessment of the kidneys and bladder. ACT 112: Negative or not required by law. Electronically signed by: Devang Nieves M.D. 02/14/2019 12:04 PM Dictated: 02/14/19 1203 Transcribed: 02/14/19 120 ULTRASOUND OF THE PELVIS CLINICAL HISTORY: Left pelvic pain. COMPARISON STUDY: Pelvic ultrasound dated 12/19/2018. TECHNIQUE: Real-time, grayscale, and color flow sonography of the pelvis is performed both transabdominally and endovaginally. Images are reviewed in the transverse and longitudinal planes. The endovaginal examination was performed for better assessment of the ovaries and adnexa. FINDINGS: Uterus: The uterus is normal in size and echotexture, measuring 8.9 x 4.4 x 5.0 cm. Endometrium: The endometrium is normal in appearance, and the endometrial stripe is normal in thickness measuring up to 0.7 cm. Ovaries: The ovaries are normal in size and morphology. The right ovary measures 2.6 x 1.5 x 2.9 cm and the left ovary measures 4.4 x 2.2 x 2.2 cm. Small follicles are noted bilaterally. Normal Doppler waveforms are shown within both ovaries. Pelvis: There is no free fluid in the cul-de-sac. No concerning adnexal lesion is seen. A shadowing bowel loop is noted in the left lower quadrant. IMPRESSION: 1. Unremarkable sonographic assessment of the pelvic viscera. 2. A shadowing loop of bowel is identified left lower quadrant, and the patient is focally tender at this site. ACT 112: Negative or not required by law. Electronically signed by: Devang Nieves M.D. 02/14/2019 12:07 PM Dictated: 02/14/19 1205 Transcribed: 02/14/[address] SCAN OF THE ABDOMEN AND PELVIS WITH IV CONTRAST CLINICAL HISTORY: Left lower quadrant abdominal pain. COMPARISON STUDY: Pelvic and renal ultrasound performed the same day 02/14/2019. TECHNIQUE: Following the IV administration of 94 cc of Optiray 320, CT scan of the abdomen and pelvis is performed from the lung bases to the proximal femora. Images are reviewed in the axial, sagittal, and coronal planes. IV contrast was administered without complication. A dose lowering technique was utilized adhering to the principles of ALARA. CT DOSE: 261.99 mGy.cm FINDINGS: Lung bases: The heart is normal in size and without pericardial effusion. The lung bases are clear noting dependent atelectasis. Liver: The contrast-enhanced liver is normal in size, contour, and attenuation. There is no intrahepatic biliary ductal dilatation. The hepatic veins and portal veins are patent. Gallbladder: Unremarkable. Spleen: Normal in size and attenuation. Pancreas: Unremarkable. Adrenal glands: Unremarkable. Kidneys: The contrast enhanced kidneys are normal in size and without hydronephrosis. The kidneys enhance symmetrically. Abdominal vasculature: The abdominal aorta is normal in course and caliber. Bowel: There is moderate to severe constipation. No bowel obstruction is seen. The appendix is well-visualized and normal. Peritoneum: There is no intraperitoneal free air or abdominal ascites. There is a fat-containing umbilical hernia. Lymphadenopathy: None. Pelvic viscera: The bladder, uterus, and adnexa are normal as visualized noting bilateral ovarian follicles. There is mild heterogeneity of the left iliopsoas musculature with faint surrounding inflammatory change. No intramuscular hematoma is identified. A 1.5 cm abscess is suggested in the left psoas muscle on image #186. Skeletal structures: No lytic or blastic lesions are seen. IMPRESSION: 1. There is mild heterogeneity of the left iliopsoas musculature with faint surrounding inflammation. Correlate clinically for evidence of a nonspecific myositis. 2. A 1.5 cm abscess is suggested in the left psoas muscle. 3. Moderate to severe constipation. ACT 112: Positive. There are findings on this exam that require communication between the performing entity and the patient following Patient Test Result Information Act ([place] Act 112) guidelines. Electronically signed by: Devang Nieves M.D. 02/14/2019 12:40 PM Dictated: 02/14/19 1230 Transcribed: 02/14/19 1230 Code Status & VTE Plan Code Status Full code VTE Prophylaxis Plan VTE Prophylaxis will be ordered: Yes PG Care Time/CCT Total # of Minutes Spent Total Time Spent with Patient: Total time spent is greater than 50% in coordination of care (as documented) at patient's floor/unit and/or counseling patient: (1) Myositis Laterality: left Myositis location: lower extremity Myositis type: unspecified type Qualified Code(s): M60.9 - Myositis, unspecified (2) Asthma, severe persistent Asthma complication type: uncomplicated Qualified Code(s): J45.50 - Severe persistent asthma, uncomplicated (3) Constipation Constipation type: unspecified constipation type Qualified Code(s): K59.00 - Constipation, unspecified
[2019-02-14] MEDS ORDERED: SODIUM CHLORIDE 0.9% 1000ML 1,000 ML IV SCH (15:56)
[2019-02-14] MEDS ORDERED: LEVALBUTEROL TARTRATE 15 GM HFA.AER.AD INH PRN (15:56)
[2019-02-14] MEDS ORDERED: DOCUSATE SODIUM 100 MG CAP PO PRN (15:56)
[2019-02-14] MEDS ORDERED: POLYETHYLENE (MIRALAX) 17 GM PACK PO PRN (15:56)
[2019-02-14 16:42] LABS: Magnesium 1.8 mg/dl (1.8-2.4); Phosphorus 2.9 mg/dl (2.5-4.9)
[2019-02-14] MEDS: ACETAMINOPHEN 325 MG TAB PO PRN ×2 (17:17→23:52)
[2019-02-14] MEDS: cefOXitin 2,000 MG in DEXTROSE 5% 50 ML IV SCH (19:52)
[2019-02-14] MEDS: CLOTRIMAZOLE 10 MG TROCHE BUCCAL SCH (20:13)
[2019-02-14] MEDS: BUDESONIDE/FORMOTEROL FUMARATE 160/4.5 60 PUFFS/INHALER INH SCH (20:13)
[2019-02-14] MEDS: VANCOMYCIN HCL 750 MG in SODIUM CHLORIDE 0.9% 250 ML IV SCH (22:28)
[2019-02-15] MEDS: cefOXitin 2,000 MG in DEXTROSE 5% 50 ML IV SCH ×5 (01:11→23:48)
[2019-02-15 06:53] LABS: Basophils # (auto) 0.01 K/uL (0-0.2); Basophils % (auto) 0.2 %; Eosinophils # (auto) 0.13 K/uL (0-0.5); Hemoglobin 13.8 g/dL (12.0-16.0); Immature Granulocytes # (auto) 0.01 K/uL (0.00-0.02); Immature Granulocytes % (auto) 0.2 %; Lymphocytes # (auto) 0.97 K/uL (1.2-3.4); Lymphocytes % (auto) 14.7 %; Mean Corpuscular Hemoglobin 31.1 pg (25-34); Mean Corpuscular Hgb Conc 32.9 g/dL (32-36); Mean Corpuscular Volume 94.6 fL (80-100); Mean Platelet Volume 10.9 fL (7.4-10.4); Neutrophils % (auto) 76.9 %; Platelet Count 212 K/uL (130-400); RDW Standard Deviation 45.2 fL (36.4-46.3); Red Blood Count 4.44 M/uL (4.2-5.4); White Blood Count 6.62 K/uL (4.8-10.8)
[2019-02-15 07:28] LABS: BUN Creatinine Ratio 5.6 (10-20); Calcium 8.3 mg/dl (8.5-10.1); Creatinine Clr Calc Pharmacy 49.3 ml/min; Est GFR (African American) 58.6; Est GFR (Non-African American) 50.6
--- NOTE | 2019-02-15 07:43 | Surgery Consultation ---
Date of Consultation February 15, 2019 Assessment & Plan (1) Psoas muscle abscess: This is a 38y F who presents to the [facility] ED on 02/14/19 with complaints of left back pain that progressed in nature and moved towards the L groin. Workup revealed a normal WBC of 6.6. Abdominal CT scan show a 1.5 cm abscess in the left psoas muscle. At this time there is unclear etiology as to why this happened. Agree with a course of IV abx for now to see if this improves patient's symptoms. Abscess is too small for us to drain and if it ultimately does require drainage would defer to a center with Interventional Radiology capabilities. If patient does not improve over the next 48 hours with abx would consider repeating CT scan or a trial of steroids. Agree with sending off autoimmune type labs and would not hesitate to consult rheumatology for this patient. as above. we would not surgically drain in this area. recommend IV antibiotics and repeat imaging in 2-3 days. if no response or enlarging abcess may need IR drainage...it is too small now. family hx of dermatomyositis... would consider rheumatology consult +/- trial of steroids. will sign off but please call us if we can be of assistance. History of Present Illness Attending Physician: Colette Flood, History of Present Illness This is a 38y F with a PMH of severe asthma who presents to the [facility] ED on 02/14/19 with 1 wk of left sided back and groin pain. Patient reports that when the back pain first started she thought she may have pulled a muscle. The pain progressed towards her groin and got to the point where she was unable to put pressure on her L foot as well as unable to lift her leg in flexion at the hip. She reports that when she is in lying position and tries to lift her leg she can only rise it about 1 inch and the this causes the pain to radiate through her pelvis. She denies being worked up for any autoimmune disease in herself, but that her mother has dermatomyositis and another relative was diagnosed with parkinson's. She does endorse dealing with "wide spread inflammation" in her body requiring surgeries on her uterus, lungs, and sinuses. She denies any recent travel, animal bites, illness, or anything out of sorts that could have incited this pain. In the ED she underwent an abdominal CT scan that showed mild heterogeneity of the left iliopsoas musculature with faint surrounding inflammation and a 1.5 cm abscess is suggested in the left psoas muscle. Surgery was consulted for further evaluation. Allergies Allergy/AdvReac Type Severity Reaction Status Date / Time bee pollen Allergy Severe Verified 02/14/19 11:00 Penicillins Allergy Severe Verified 02/14/19 11:00 aspirin Allergy Intermediate asthma Verified 02/14/19 11:00 attack ibuprofen Allergy Intermediate ASTHMA Verified 02/14/19 11:00 ATTACK fluconazole AdvReac Sick, Verified 02/14/19 11:00 dizziness Home Medications Home Medications Medication Instructions Recorded Confirmed Type levalbuterol HCl 0.63 mg/3 mL 0.63 mg INH Q4H PRN #120 vial 09/14/18 02/14/19 Rx solution for nebulization levalbuterol tartrate 45 2 puffs INH Q4H PRN #15 gm 09/14/18 02/14/19 Rx mcg/actuation aerosol inhaler riboflavin (vitamin B2) 100 mg 200 mg PO QAM tab 10/11/18 02/14/19 History tablet budesonide-formoterol HFA 160 2 puffs INH Q12H #10.2 gm 01/02/19 02/14/19 Rx mcg-4.5 mcg/actuation aerosol inhaler clotrimazole 10 mg elan 10 mg MUCOUS MEMBRANE TID #90 tab 01/20/19 02/14/19 Rx Lactobacillus rhamnosus GG 1 cap PO QAM 02/14/19 02/14/19 History [Culturelle] ascorbic acid (vitamin C) 100 mg PO QAM 02/14/19 02/14/19 History esomeprazole magnesium [Nexium] 20 mg PO QAM 02/14/19 02/14/19 History ewswxmprbpke-Zz-svdj-minerals 1 tab PO QAM 02/14/19 02/14/19 History [Multiple Vitamin, Womens] Patient History Medical History Asthma Candidiasis of mouth History of vaginal delivery Surgical History S/P bronchoscopy Bronchial thermoplasty S/P endometrial ablation S/P nasal septoplasty Family History Mother Asthma Dermatomyositis Father FH: deafness or hearing loss Hypertension Family history unknown Grandmother Lung cancer Breast cancer, Onset Age: 35 paternal - unsure if completed genetic testing Grandfather Myocardial infarction Aunt Breast cancer maternal Family/Other Breast cancer maternal Other Prostate cancer Social History Preferred Language: Lao Communication Ability: Effective 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 Hurts with standing and lifting L leg in flexion. Physical Exam Physical Exam: awake/alert Musculoskeletal: Left groin pain reproduced when patient attempts flexion, radiating through lower abdomen Results & Data Vital Signs (Past 12 Hours) Vital Signs Temp Pulse Resp BP Pulse Ox 02/15/19 07:32 37.0 C 77 15 111/72 98 02/14/19 23:05 37 C 91 H 18 97/62 L 96 LUMBAR SPINE 3 VIEWS CLINICAL HISTORY: Low back pain. FINDINGS: 3 views of the lumbar spine are obtained. The skeletal structures are well mineralized. There is no radiographic evidence of fracture or malalignment. Vertebral body height and alignment are maintained. The transverse and spinous processes are intact. The intervertebral disc spaces are well-maintained. The visualized bony pelvis appears intact. There is a nonobstructed abdominal bowel gas pattern. Moderate fecal retention is noted in the colon. Phleboliths are noted in the pelvis. IMPRESSION: Unremarkable radiographic evaluation of the lumbar spine. ACT 112: Negative or not required by law. Electronically signed by: Devang Nieves M.D. 02/14/2019 12:03 PM ULTRASOUND OF THE PELVIS CLINICAL HISTORY: Left pelvic pain. COMPARISON STUDY: Pelvic ultrasound dated 12/19/2018. TECHNIQUE: Real-time, grayscale, and color flow sonography of the pelvis is performed both transabdominally and endovaginally. Images are reviewed in the transverse and longitudinal planes. The endovaginal examination was performed for better assessment of the ovaries and adnexa. FINDINGS: Uterus: The uterus is normal in size and echotexture, measuring 8.9 x 4.4 x 5.0 cm. Endometrium: The endometrium is normal in appearance, and the endometrial stripe is normal in thickness measuring up to 0.7 cm. Ovaries: The ovaries are normal in size and morphology. The right ovary measures 2.6 x 1.5 x 2.9 cm and the left ovary measures 4.4 x 2.2 x 2.2 cm. Small follicles are noted bilaterally. Normal Doppler waveforms are shown within both ovaries. Pelvis: There is no free fluid in the cul-de-sac. No concerning adnexal lesion is seen. A shadowing bowel loop is noted in the left lower quadrant. IMPRESSION: 1. Unremarkable sonographic assessment of the pelvic viscera. 2. A shadowing loop of bowel is identified left lower quadrant, and the patient is focally tender at this site. ACT 112: Negative or not required by law. Electronically signed by: Devang Nieves M.D. 02/14/2019 12:07 PM Dictated: 02/14/19 1205 Transcribed: 02/14/19 1205 ULTRASOUND KIDNEYS AND BLADDER CLINICAL HISTORY: Left flank pain. COMPARISON STUDY: Abdominal radiograph dated 12/17/2015. TECHNIQUE: Real-time, grayscale, and color flow sonography of the kidneys and bladder is performed. Images are reviewed in the transverse and longitudinal planes. FINDINGS: Kidneys: The kidneys are normal in size and echotexture. The right kidney measures 12.7 cm in length and the left kidney measures 11.6 cm in length. There is no hydronephrosis. No shadowing renal calculi are identified. There is no sonographic evidence of contour deforming renal mass lesion. No perinephric fluid is identified. Bladder: The bladder is normal in appearance. Bilateral ureteral jets were seen. IMPRESSION: Unremarkable sonographic assessment of the kidneys and bladder. CT SCAN OF THE ABDOMEN AND PELVIS WITH IV CONTRAST CLINICAL HISTORY: Left lower quadrant abdominal pain. COMPARISON STUDY: Pelvic and renal ultrasound performed the same day 02/14/2019. TECHNIQUE: Following the IV administration of 94 cc of Optiray 320, CT scan of the abdomen and pelvis is performed from the lung bases to the proximal femora. Images are reviewed in the axial, sagittal, and coronal planes. IV contrast was administered without complication. A dose lowering technique was utilized adhering to the principles of ALARA. CT DOSE: 261.99 mGy.cm FINDINGS: Lung bases: The heart is normal in size and without pericardial effusion. The lung bases are clear noting dependent atelectasis. Liver: The contrast-enhanced liver is normal in size, contour, and attenuation. There is no intrahepatic biliary ductal dilatation. The hepatic veins and portal veins are patent. Gallbladder: Unremarkable. Spleen: Normal in size and attenuation. Pancreas: Unremarkable. Adrenal glands: Unremarkable. Kidneys: The contrast enhanced kidneys are normal in size and without hydronephrosis. The kidneys enhance symmetrically. Abdominal vasculature: The abdominal aorta is normal in course and caliber. Bowel: There is moderate to severe constipation. No bowel obstruction is seen. The appendix is well-visualized and normal. Peritoneum: There is no intraperitoneal free air or abdominal ascites. There is a fat-containing umbilical hernia. Lymphadenopathy: None. Pelvic viscera: The bladder, uterus, and adnexa are normal as visualized noting bilateral ovarian follicles. There is mild heterogeneity of the left iliopsoas musculature with faint surrounding inflammatory change. No intramuscular hematoma is identified. A 1.5 cm abscess is suggested in the left psoas muscle on image #186. Skeletal structures: No lytic or blastic lesions are seen. IMPRESSION: 1. There is mild heterogeneity of the left iliopsoas musculature with faint surrounding inflammation. Correlate clinically for evidence of a nonspecific myositis. 2. A 1.5 cm abscess is suggested in the left psoas muscle. 3. Moderate to severe constipation. ACT 112: Positive. There are findings on this exam that require communication between the performing entity and the patient following Patient Test Result In [place] Act ([place] Act 112) guidelines. Electronically signed by: Devang Nieves M.D. 02/14/2019 12:40 PM PG Care Time/CCT Total # of Minutes Spent Total Time Spent with Patient: Total time spent is greater than 50% in coordination of care (as documented) at patient's floor/unit and/or counseling patient:
[2019-02-15] MEDS: BUDESONIDE/FORMOTEROL FUMARATE 160/4.5 60 PUFFS/INHALER INH SCH ×2 (08:13→20:40)
[2019-02-15] MEDS: VANCOMYCIN HCL 750 MG in SODIUM CHLORIDE 0.9% 250 ML IV SCH (08:13)
[2019-02-15] MEDS: ACETAMINOPHEN 325 MG TAB PO PRN ×2 (08:22→16:08)
[2019-02-15] MEDS: PANTOprazole 40 MG TAB PO SCH (08:24)
[2019-02-15] MEDS: LACTOBACILLUS ACIDOPHILUS (FLORANEX) TAB PO SCH (08:24)
[2019-02-15] MEDS: CLOTRIMAZOLE 10 MG TROCHE BUCCAL SCH ×3 (08:25→20:39)
[2019-02-15] MEDS: SODIUM CHLORIDE 0.9% 1000ML 1,000 ML IV SCH (16:08)
[2019-02-15] MEDS ORDERED: VANCOMYCIN TROUGH ONE (17:30)
[2019-02-15] MEDS: DAPTOmycin 325 MG in SYRINGE 0 ML IV SCH (18:37)
[2019-02-15] MEDS ORDERED: OXYCODONE HCL IR 5 MG TAB (IMMEDIATE RELEASE) PO PRN (19:33)
--- NOTE | 2019-02-15 19:38 | Hospitalist Progress Note ---
Date of Service February 15, 2019 Assessment & Plan (1) Psoas muscle abscess: 1.5 cm abscess in the left psoas muscle. Etiology? Did she have seeding of her blood from dental work in December then development of abscess? Did she develop a hematoma from her recent fall (fall was 1 week before ) which then led to an abscess? other? HIV is negative. In 2019 had immunoglobulins and these were normal except IgE (due to severe asthma, allergies). Continue cefoxitin. Use daptomycin in baltazar of vancomycin due to acute kidney injury. Follow blood cultures. Appreciate gen surg consultation; hopefully no I/D will be necessary given how small the abscess is. pain control - try tylenol 1gm TID. Oxycodone prn. Unable to give NSAIDs due to allergy. (2) Myositis: This is likely a secondary process due to inflammation from the abscess + /- trauma from her recent fall. CPK is normal. Treat pain. (3) Acute kidney injury: Too early for contrast injury from CT contrast. u/a is bland and without casts. Etiology? ATN from her infection? other? Hydrate with NS. Repeat BMP am. Avoid nephrotoxins. (4) Candidiasis of mouth: Oral candidiasis intermittent for the last 6 months. Controlled with clotrimazole. Suspect recurrent thrush due to inhaled steroid use for asthma. Again immunoglobulins were normal earlier this fall. HIV test is NEGATIVE. Follow clinically. (5) Asthma, severe persistent: Controlled / without exacerbation at this time. Continue budesonide/formoterol. Continue Xopenex prn. (6) Constipation: Start miralax BID. (7) DVT prophylaxis: Due to limited mobility in setting of left psoas abscess would consider heparin 5000 BID. Subjective patient's main complaint is that of left groin and left anterior thigh pain. worse with movement. thigh pain does not radiate past the distal 1/3 of the thigh. no radiation to back. no abdominal pain. denies recent tattoos. had dental work in mid-December (routine cleaning). no prior rash, ulcers, cuts, or abrasions. DID have a fall onto her left hip about 1 week prior to . She never had bruising of the left leg/thigh. She did not have pain following the fall. Review of Systems Constitutional: no fever, no chills, no body aches, no fatigue and no anorexia Respiratory: no cough and no dyspnea Cardiovascular: no chest pain Gastrointestinal: no abdominal pain Physical Exam Constitutional: well developed and well nourished; no acute distress, not ill appearing and no altered mental status ENMT: external ear and nose normal, oropharynx normal Mouth: no oral mucosal abnormality (no thrush plaques seen today) Respiratory: normal respiratory effort, lungs clear to auscultation Cardiovascular: Rate/Rhythm: regular rate and regular rhythm Heart Sounds: normal S1 and normal S2; no murmur Vessels: posterior tibial pulses present and dorsalis pedis pulses present; no JVD Extremities: no edema Gastrointestinal (Abdomen): normal bowel sounds, soft, nontender, no hepatosplenomegaly Musculoskeletal: left hip flexion and rotation elicits pain in left groin; no obvious gross abnormality of left thigh Skin: tattoos scattered Psychiatric: A+Ox3, euthymic affect Results & Data Vital Signs (Past 12 Hours) Vital Signs Temp Pulse Resp BP Pulse Ox 02/15/19 15:50 37.1 C 79 16 114/76 96 Laboratory Results Laboratory Results - last 24 hr 02/15/19 02/15/19 06:33 06:33 WBC 6.62 RBC 4.44 Hgb 13.8 Hct 42.0 MCV 94.6 MCH 31.1 MCHC 32.9 RDW Std Deviation 45.2 RDW Coeff of Raquel 13.0 Plt Count 212 MPV 10.9 H Immature Gran % (Auto) 0.2 Neut % (Auto) 76.9 Lymph % (Auto) 14.7 [place] % (Auto) 6.0 Eos % (Auto) 2.0 Baso % (Auto) 0.2 Immature Gran # (Auto) 0.01 Neut # (Auto) 5.10 Lymph # (Auto) 0.97 L [place] # (Auto) 0.40 Eos # (Auto) 0.13 Baso # (Auto) 0.01 Sodium 142 Potassium 4.0 Chloride 112 H Carbon Dioxide 27 Anion Gap 3.0 BUN 7 D Creatinine 1.33 H D Est Cr Clr Drug Dosing 49.3 Est GFR ( Amer) 58.6 Est GFR (Non-Af Amer) 50.6 BUN/Creatinine Ratio 5.6 L Glucose 98 Calcium 8.3 L Diagnostic Findings blood cx's thus far negative PG Care Time/CCT Total # of Minutes Spent Total Time Spent with Patient: Total time spent is greater than 50% in coordination of care (as documented) at patient's floor/unit and/or counseling patient: (1) Myositis Laterality: left Myositis location: lower extremity Myositis type: unspecified type Qualified Code(s): M60.9 - Myositis, unspecified (2) Asthma, severe persistent Asthma complication type: uncomplicated Qualified Code(s): J45.50 - Severe persistent asthma, uncomplicated (3) Constipation Constipation type: unspecified constipation type Qualified Code(s): K59.00 - Constipation, unspecified
[2019-02-15] MEDS: ACETAMINOPHEN 500 MG TAB PO SCH (20:39)
[2019-02-15] MEDS: POLYETHYLENE (MIRALAX) 17 GM PACK PO SCH (20:45)
[2019-02-16] MEDS: SODIUM CHLORIDE 0.9% 1000ML 1,000 ML IV SCH (01:39)
[2019-02-16 05:55] LABS: Basophils # (auto) 0.01 K/uL (0-0.2); Basophils % (auto) 0.2 %; Eosinophils # (auto) 0.12 K/uL (0-0.5); Eosinophils % (auto) 1.8 %; Hematocrit (blood only) 41.9 % (37-47); Hemoglobin 13.7 g/dL (12.0-16.0); Lymphocytes # (auto) 0.84 K/uL (1.2-3.4); Lymphocytes % (auto) 12.9 %; Mean Corpuscular Hemoglobin 30.9 pg (25-34); Mean Corpuscular Hgb Conc 32.7 g/dL (32-36); Mean Corpuscular Volume 94.6 fL (80-100); Mean Platelet Volume 10.7 fL (7.4-10.4); Monocytes # (auto) 0.53 K/uL (0.11-0.59); Monocytes % (auto) 8.1 %; Neutrophils # (auto) 5.01 K/uL (1.4-6.5); Platelet Count 214 K/uL (130-400); RDW Standard Deviation 45.1 fL (36.4-46.3); Red Blood Count 4.43 M/uL (4.2-5.4); White Blood Count 6.51 K/uL (4.8-10.8)
[2019-02-16] MEDS: cefOXitin 2,000 MG in DEXTROSE 5% 50 ML IV SCH ×3 (06:07→18:29)
[2019-02-16 06:28] LABS: BUN Creatinine Ratio 9.4 (10-20); C Reactive Protein 0.9 mg/dl (0-0.29); Calcium 8.3 mg/dl (8.5-10.1); Creatinine Clr Calc Pharmacy 102.5 ml/min; Est GFR (African American) 131.2; Est GFR (Non-African American) 113.2
[2019-02-16] MEDS: PANTOprazole 40 MG TAB PO SCH (08:41)
[2019-02-16] MEDS: LACTOBACILLUS ACIDOPHILUS (FLORANEX) TAB PO SCH (08:41)
[2019-02-16] MEDS: ACETAMINOPHEN 500 MG TAB PO SCH ×3 (08:42→21:50)
[2019-02-16] MEDS: CLOTRIMAZOLE 10 MG TROCHE BUCCAL SCH ×3 (08:42→21:50)
[2019-02-16] MEDS: BUDESONIDE/FORMOTEROL FUMARATE 160/4.5 60 PUFFS/INHALER INH SCH ×2 (08:43→21:50)
[2019-02-16] MEDS: POLYETHYLENE (MIRALAX) 17 GM PACK PO SCH ×2 (08:44→21:50)
[2019-02-16] MEDS ORDERED: VANCOMYCIN TROUGH ONE (13:30)
[2019-02-16] MEDS: DAPTOmycin 325 MG in SYRINGE 0 ML IV SCH (18:07)
[2019-02-16 18:37] LABS: Aldolase 3.7 U/L (< OR = 8.1); Anti Nuclear Antibody Screen NEGATIVE (NEGATIVE); JO 1 Antibody <1.0 NEG AI (<1.0 NEG)
--- NOTE | 2019-02-16 22:56 | Hospitalist Progress Note ---
Date of Service February 16, 2019 Assessment & Plan (1) Psoas muscle abscess: CLINICALLY IMPROVING. 1.5 cm abscess in the left psoas muscle. Etiology? Did she have seeding of her blood from dental work in December then development of abscess? Did she develop a hematoma from her recent fall (fall was 1 week before [place]) which then led to an abscess? Suspect latter. HIV is negative. In 2019 had immunoglobulins and these were normal except IgE (due to severe asthma, allergies). Continue cefoxitin. Continue daptomycin in baltazar of vancomycin due to recent acute kidney injury. Blood cx's thus far negative. Sed rate and crp are very normal. Appreciate gen surg consultation; hopefully no I/D will be necessary given how small the abscess is. pain control tylenol 1gm TID. Oxycodone prn. Unable to give NSAIDs due to allergy. ICE to left thigh if desired. Will contact ID at [facility] [place] [facility] [place] [facility] [place] to figure out abx course; usually 4-6 week courses are advised but again will call tertiary care. (2) Myositis: This is likely a secondary process due to inflammation from the abscess +/- trauma from her recent fall. CPK is normal. Treat pain. (3) Acute kidney injury: resolved stop fluids (4) Candidiasis of mouth: Oral candidiasis intermittent for the last 6 months. Controlled with clotrimazole. Suspect recurrent thrush due to inhaled steroid use for asthma. Pt knows to rinse mouth with water religiously following use of inhaled corticosteroids. Again immunoglobulins were normal earlier this fall. HIV test is NEGATIVE. Follow clinically. (5) Asthma, severe persistent: Controlled / without exacerbation at this time. Continue budesonide/formoterol. Continue Xopenex prn. (6) Constipation: miralax BID. slow-transit. (7) DVT prophylaxis: Due to limited mobility in setting of left psoas abscess would consider heparin 5000 BID but her mobility is indeed better today. Defer for now. updated at bedside. d/c date uncertain - hinges on antibiotics Subjective patient feeling much better left thigh and left hip improved in terms of pain; still present but improving appetite is good no fevers/chills states she has had chronic constipation for years (no BM for 4-5 days at a time at home) at bedside Review of Systems Constitutional: no fever, no chills, no fatigue and no anorexia Respiratory: no cough and no dyspnea Cardiovascular: no chest pain Gastrointestinal: no abdominal pain Physical Exam Constitutional: well developed and well nourished; no acute distress, not ill appearing and no altered mental status ENMT: external ear and nose normal, oropharynx normal Mouth: no oral mucos al abnormality (no thrush plaques seen today) Respiratory: normal respiratory effort, lungs clear to auscultation Cardiovascular: Rate/Rhythm: regular rate and regular rhythm Heart Sounds: normal S1 and normal S2; no murmur Vessels: posterior tibial pulses present and dorsalis pedis pulses present; no JVD Extremities: no edema Gastrointestinal (Abdomen): normal bowel sounds, soft, nontender, no hepatosplenomegaly Musculoskeletal: left thigh: mild swelling anteriorly relative to right thigh; I am able to passively flex, extend, and externally rotate the left hip much more easily than yesterday; still painful but improved. Psychiatric: A+Ox3, euthymic affect Results & Data Vital Signs (Past 12 Hours) Vital Signs Temp Pulse Resp BP Pulse Ox 02/16/19 15:25 36.9 C 76 16 122/79 99 Laboratory Results Laboratory Results - last 24 hr 02/14/19 02/16/19 02/16/19 16:06 05:42 05:42 WBC 6.51 RBC 4.43 Hgb 13.7 Hct 41.9 MCV 94.6 MCH 30.9 MCHC 32.7 RDW Std Deviation 45.1 RDW Coeff of Raquel 13.0 Plt Count 214 MPV 10.7 H Immature Gran % (Auto) 0.0 Neut % (Auto) 77.0 Lymph % (Auto) 12.9 [place] % (Auto) 8.1 Eos % (Auto) 1.8 Baso % (Auto) 0.2 Immature Gran # (Auto) 0.00 Neut # (Auto) 5.01 Lymph # (Auto) 0.84 L [place] # (Auto) 0.53 Eos # (Auto) 0.12 Baso # (Auto) 0.01 ESR 15 Sodium Potassium Chloride Carbon Dioxide Anion Gap BUN Creatinine Est Cr Clr Drug Dosing Est GFR ( Amer) Est GFR (Non-Af Amer) BUN/Creatinine Ratio Glucose Calcium C-Reactive Protein Aldolase 3.7 RONAL Screen NEGATIVE AMI-1 Antibody <1.0 NEG 02/16/19 05:42 WBC RBC Hgb Hct MCV MCH MCHC RDW Std Deviation RDW Coeff of Raquel Plt Count MPV Immature Gran % (Auto) Neut % (Auto) Lymph % (Auto) [place] % (Auto) Eos % (Auto) Baso % (Auto) Immature Gran # (Auto) Neut # (Auto) Lymph # (Auto) [place] # (Auto) Eos # (Auto) Baso # (Auto) ESR Sodium 141 Potassium 4.0 Chloride 113 H Carbon Dioxide 28 Anion Gap 0 L BUN 6 L Creatinine 0.64 D Est Cr Clr Drug Dosing 102.5 Est GFR ( Amer) 131.2 Est GFR (Non-Af Amer) 113.2 BUN/Creatinine Ratio 9.4 L Glucose 88 Calcium 8.3 L C-Reactive Protein 0.90 H Aldolase RONAL Screen AMI-1 Antibody Diagnostic Findings blood cx's negative to date PG Care Time/CCT Total # of Minutes Spent Total Time Spent with Patient: Total time spent is greater than 50% in coordination of care (as documented) at patient's floor/unit and/or counseling patient: (1) Myositis Laterality: left Myositis location: lower extremity Myositis type: unspecified type Qualified Code(s): M60.9 - Myositis, unspecified (2) Asthma, severe persistent Asthma complication type: uncomplicated Qualified Code(s): J45.50 - Severe persistent asthma, uncomplicated (3) Constipation Constipation type: unspecified constipation type Qualified Code(s): K59.00 - Constipation, unspecified
[2019-02-17] MEDS: cefOXitin 2,000 MG in DEXTROSE 5% 50 ML IV SCH ×3 (00:14→12:56)
[2019-02-17] MEDS: ACETAMINOPHEN 500 MG TAB PO SCH ×2 (07:58→13:58)
[2019-02-17] MEDS: POLYETHYLENE (MIRALAX) 17 GM PACK PO SCH (07:59)
[2019-02-17] MEDS: LACTOBACILLUS ACIDOPHILUS (FLORANEX) TAB PO SCH (07:59)
[2019-02-17] MEDS: PANTOprazole 40 MG TAB PO SCH (08:00)
[2019-02-17] MEDS: BUDESONIDE/FORMOTEROL FUMARATE 160/4.5 60 PUFFS/INHALER INH SCH (08:00)
[2019-02-17] MEDS: CLOTRIMAZOLE 10 MG TROCHE BUCCAL SCH ×2 (08:00→12:58)
--- NOTE | 2019-02-17 15:49 | Discharge Summary ---
Date of Service date of admission - February 14, 2019 date of discharge - February 17, 2019 Admission HPI Per Admitting Provider Devaughn Carlson is a pleasant 38-year-old female with history of severe persistent asthma on Budesonide/Formoterol, oral thrush on Clotrimazole presenting with left groin and leg pain. Patient states that 4 days ago she developed pain in her left lower quadrant. She thought that she may have pulled a muscle therefore she was treating it conservatively with rest. However, the pain intensified and began to involve the left leg and radiation across the lower abdomen. Pain is severe, patient having difficulty sleeping and performing ADLs. Also having difficulty lifting her leg and ambulating. She denies fever but has had occasional chills and sweats. Denies weight changes. Denies chest pain, shortness of breath, abdominal pain, nausea, vomiting, diarrhea, constipation. No dysuria, hematuria. ER work-up suggestive of abscess of the left psoas muscle associated with myositis. Patient with history of severe, persistent asthma. She follows with pulmonary. Presently managed with budesonide/formoterol and Xopenex. She has had significant difficulty with oral thrush over the past 6 months. She was initially treated with fluconazole which resulted in a serious reaction. Also mild reaction from nystatin. She is presently on clotrimazole. There is been some mention of concern over her immune system. She has had frequent infections in the past. She has seen allergy/immunology, last on 01/18/2019. ER course: Vancomycin, cefoxitin, normal saline, morphine, Zofran Principal Diagnosis suspected left psoas abscess Discharge Exam Constitutional well developed and well nourished; no acute distress, not ill appearing and no altered mental status ENMT external ear and nose normal, oropharynx normal Mouth: no oral mucosal abnormality (no thrush plaques ) Respiratory normal respiratory effort, lungs clear to auscultation Cardiovascular Rate/Rhythm: regular rate and regular rhythm Heart Sounds: normal S1 and normal S2; no murmur Vessels: posterior tibial pulses present and dorsalis pedis pulses present; no JVD Extremities: no edema Gastrointestinal (Abdomen) normal bowel sounds, soft, nontender, no hepatosplenomegaly Musculoskeletal left hip - passive ROM is much improved relative to previous exams; flexion is nearing normal; abduction and rotation are much improved w/ less pain. Psychiatric A+Ox3, euthymic affect Discharge Data Allergies Allergy/AdvReac Type Severity Reaction Status Date / Time bee pollen Allergy Severe Verified 02/14/19 11:00 Penicillins Allergy Severe Verified 02/14/19 11:00 aspirin Allergy Intermediate asthma Verified 02/14/19 11:00 attack ibuprofen Allergy Intermediate ASTHMA Verified 02/14/19 11:00 ATTACK fluconazole AdvReac Sick, Verified 02/14/19 11:00 dizziness Consultations General Surgery Ordered Studies US pelvic complete US renal/blad retro comp US transvaginal Lumbar spine x-rays CT abd pelvis IV contrast - IMPRESSION: 1. There is mild heterogeneity of the left iliopsoas musculature with faint surrounding inflammation. Correlate clinically for evidence of a nonspecific myositis. 2. A 1.5 cm abscess is suggested in the left psoas muscle. 3. Moderate to severe constipation. Hospital Course (1) Psoas muscle abscess: SUSPECTED. CLINICALLY IMPROVED prior to discharge. 1.5 cm abscess in the left psoas muscle. Etiology? Did she have seeding of her blood from dental work in December then development of abscess? Did she develop a hematoma from her recent fall (fall was 1 week before ) which then led to an abscess? Suspect latter. HIV testing was negative. In 2019 had immunoglobulins and these were normal except IgE (due to severe asthma, allergies). Received IV cefoxitin and IV vancomycin/daptomycin while hospitalized. Blood cx's remained negative. Sed rate and crp were very normal. Seen by general surgery; I/D not recommended given how small the abscess was. Due to lack of availability of infectious disease consultative services at [facility] I contacted [facility] and spoke with their infectious disease senior product consultant. Multiple options were discussed but ultimately, due to her allergies, we selected a combination of avelox with doxycycline (latter for MRSA coverage). 4-6 weeks of treatment were recommended along with repeat CT of pelvis in about 4 weeks (sooner if clinically indicated). We will set Ms Carlson up with [facility] Infectious Disease hopefully within 1 week of discharge. Of note - prior to prescribing of avelox an EKG was checked and QTc was normal. (2) Myositis: Left thigh - seen on CT. This was likely a secondary process due to inflammation from the abscess +/- trauma from her recent fall. CPK was normal. Sed rate/crp were normal. (3) Acute kidney injury: Peak Cr 1.3, improving to 0.6 prior to discharge with IV fluids. (4) Candidiasis of mouth: Oral candidiasis intermittent for the last 6 months. Treated/Controlled with clotrimazole. Suspect recurrent thrush due to inhaled steroid use for asthma. Pt knows to rinse mouth with water religiously following use of inhaled corticosteroids. Again immunoglobulins were normal earlier this fall. HIV test is NEGATIVE. Advised to stay on clotrimazole while on the antibiotics for the suspected psoas muscle abscess. (5) Asthma, severe persistent: Controlled / without exacerbation at this time. Continue budesonide/formoterol. Continue Xopenex prn. (6) Constipation: Advised miralax once daily to BID. Likely slow-transit constipation. Total Time Total Time Spent Total Time Spent (In Minutes): 40 Total Time Includes: Examination of the Patient, Discharge Planning, Medication Reconciliation and Communication With Other Providers Discharge Plan Discharge Items Patient Disposition: Home - Self-Care Reason For Visit: LEFT SIDED PSOAS ABSCESS Discharge Diagnosis: left-sided psoas abscess - improving Activity: As commented below Activity Comment: avoid strenuous activities & excessive stair climbing Lifting: No more than 10 pounds Bathing: No limitations Sexual Activity: Wait until after follow-up appointment Exercise/Sports: Wait until after follow-up appointment Driving/Machine Use: as long as driving does not bother the left leg ok to resume at any time Non-emergency contact: Specialist Call non-emergency contact if: you have any medication questions, your symptoms worsen, your pain is not controlled, your pain is worsening, your pain is unusual for you, your pain is concerning for you and you have a fever Follow-up/Referrals: Justine Hunt MD [Primary Care Provider] - (see Dr Hunt within 1 week) Miranda Zheng DO [Physician] - (our outreach and education social worker will attempt to get you an appointment with Dr Zheng this coming week) Diet: Regular Addtl Attending Provider Instructions: You were treated for a suspected psoas abscess on the left side of your groin. Your CAT scan of the pelvis showed that the potential abscess is about 1.5cm in size. We do not know the exact reason why you developed this but we discussed the possibilities (either the blood was seeded by bacteria transiently, perhaps during prior dental cleaning -OR- your recent fall led to a hematoma which then became infected, -OR- some other unidentified reason). Either way you improved with IV antibiotics, pain meds, and time. Your mobility of the left leg and hip are much improved. Your blood work is normal, and your blood cultures have remained negative. We spoke with the infectious disease team at [facility] and we are recommending - 1. avelox (moxifloxacin) 400mg once daily. I have given you a 2-week supply of this. Start TONIGHT. You may need to take this antibiotic for 4+ weeks or more. 2. doxycycline 100mg twice daily. I have given you a 2-week supply. Start TONIGHT. You may need to take this antibiotic for 4+ weeks or more. Additional recommendations - 1. oxycodone 5mg every 4 hours as needed for pain. Do not drink alcohol or drive while taking pain pills. The oxycodone WILL make you more constipated. It can also cause drowsiness. 2. continue your clotrimazole for your thrush as long as you are taking antibiotics. 3. continue your probiotics once daily as previous. 4. eat yogurt 2-3 times each day while on antibiotics. 5. tylenol 1000mg every 8 hours as needed for pain. 6. heat or ice to left thigh as needed/desired for pain. Side effects of avelox include diarrhea and the theoretical risk of having tendonitis. The latter, if it occurs, is usually the achilles tendon. Side effects of doxycycline include diarrhea, heartburn, and a rash if you go out in the sun while taking doxycycline. If you spend a lot of time in the sun in the next 2 weeks (what little sun we have in [facility] in the winter!) please cover up/use sunscreen. Follow-up - We will try to get you an appointment with Dr Miranda Zheng, infectious disease, this coming week. She can order the CAT scan in a month and follow the abscess. Return to [facility] if - * you have recurrent fevers over 100.5 degrees * you have severe diarrhea * you develop worsening pain in your left groin, thigh, or your left lower portion of the abdomen * you develop severe limping * any other concerns Pending Studies at Discharge: Yes Studies:: blood cultures but thus far negative Stand-Alone Forms: Call Back Authorization, My [facility], Smoking Cessation Medications and DC Order Prescriptions: New oxycodone 5 mg Tablet 5 mg PO Q4H PRN (Reason: pain) Qty: 15 RF: 0 moxifloxacin 400 mg tablet 400 mg PO DAILY 14 Days Qty: 14 RF: 0 doxycycline hyclate 100 mg capsule 100 mg PO BID 14 Days Qty: 28 RF: 0 Continued levalbuterol HCl [Xopenex] 0.63 mg/3 mL solution for nebulization 0.63 mg INH Q4H PRN (Reason: shortness of breath or wheezing) Qty: 120 RF: 5 levalbuterol tartrate [Xopenex HFA] 45 mcg/actuation HFA aerosol inhaler 2 puffs INH Q4H PRN (Reason: shortness of breath or wheezing) Qty: 15 RF: 0 riboflavin (vitamin B2) [Vitamin B-2] 100 mg tablet 200 mg PO QAM RF: 0 ascorbic acid (vitamin C) 100 mg tablet 100 mg PO QAM RF: 0 Culturelle 10 billion cell capsule 1 cap PO QAM RF: 0 esomeprazole magnesium [Nexium] 20 mg capsule,delayed release(DR/EC) 20 mg PO QAM RF: 0 Multiple Vitamin, Womens tablet 1 tab PO QAM RF: 0 clotrimazole 10 mg elan 10 mg mucous membrane TID Qty: 60 RF: 1 Symbicort 160-4.5 mcg/actuation HFA aerosol inhaler 2 puffs INH Q12H Qty: 10.2 RF: 5 Discharge Orders: Discharge Order (Routine); Ordered 02/17/19 Ordered By: Jamil Valdez Admission Data Admit Date/Time: 02/14/19 14:17 Attending Provider: Jamil Valdez Admit Provider: Colette Flood Primary Care Provider: Justine Hunt Other Providers: Colette Flood ; Tavo Johnson Other Interventions: Discharge Summary Assessment (RN) Last Done: 02/17/19 15:52 DC Date/Time DO NOT enter until pt leaves facility: 02/17/19 16:36
--- NOTE | 2019-02-18 13:01 | Electrocardiogram Report ---
Test Reason : Blood Pressure : / mmHG Vent. Rate : 090 BPM Atrial Rate : 090 BPM P-R Int : 118 ms QRS Dur : 088 ms QT Int : 370 ms P-R-T Axes : 068 013 052 degrees QTc Int : 452 ms Normal sinus rhythm Possible Left atrial enlargement Borderline ECG When compared with ECG of 22-FEB-2017 11:14, No significant change was found Confirmed by Darion Mejia ([id number]) on 02/18/2019 1:01:33 PM Referred By: REFERRED SELF Confirmed By:Darion Mejia
== END 2019-02-17 16:36 | disposition home or self-care (01) | DRG 372 ==
LOC: ED 09:59 → SUATTDRO 14:17 → 3W 14:17

== ENCOUNTER 2019-02-22 13:11 | Inpatient (IN) ==
--- NOTE | 2019-02-22 14:27 | Emergency Department Note ---
History of Present Illness General Chief complaint: Abdominal Pain Stated complaint: ABCESS IN ABDOMEN Source: patient Mode of arrival: ambulatory Limitations: no limitations History of Present Illness Provider Complaint: + other (pelvic pain, LLE weakness, Left hip pain) Onset (ago): 2 week(s) Pain Consistency: + constant Location: + left and + lower extremity Current Pain Intensity: 3 Quality: + aching and + constant Radiation: + none Relieving factors: + immobilization Exacerbating factors: + weight bearing and + walking Associated symptoms: + denies other symptoms HPI Narrative: This 38-year-old female patient with recent admission for left iliopsoas muscle abscess presents to the emergency department accompanied by a male as referred by Dr. Zheng for repeat CT imaging and labs to evaluate for possible worsening abscess. The patient was seen as an outpatient earlier today due to the same pain in the left side of the pelvis radiating into the left lower extremity associated with weakness in that extremity. Today was her ID follow-up, and she was sent to the ED due to no response to doxycycline and moxifloxacin. The patient denies any fever. She states the pain is no worse, but does not seem to be getting better. She did suffer a fall 1 week prior to the onset of the pain where she landed on her buttocks and back on the left side on her concrete steps in front of her house. The patient denies any pain in the mid back. The pain is all in the left side of the pelvis and radiates down to the left thigh and the lateral aspect of the left knee, causing difficulty ambulating. The patient states she feels that she is dragging her leg with ambulating. The patient denies numbness or tingling. She has taken no medication for her pain. Home Medications Home Medications Medication Instructions Recorded Confirmed Type levalbuterol HCl 0.63 mg/3 mL 0.63 mg INH Q4H PRN #120 vial 09/14/18 02/22/19 Rx solution for nebulization levalbuterol tartrate 45 2 puffs INH Q4H PRN #15 gm 09/14/18 02/22/19 Rx mcg/actuation aerosol inhaler riboflavin (vitamin B2) 100 mg 200 mg PO QAM tab 10/11/18 02/22/19 History tablet Culturelle 1 cap PO QAM 02/14/19 02/22/19 History Multiple Vitamin, Womens 1 tab PO QAM 02/14/19 02/22/19 History ascorbic acid (vitamin C) 100 mg PO QAM 02/14/19 02/22/19 History esomeprazole magnesium [Nexium] 20 mg PO QAM 02/14/19 02/22/19 History Symbicort 2 puffs INH Q12H #10.2 gm 02/17/19 02/22/19 Rx clotrimazole 10 mg MUCOUS MEMBRANE TID #60 tab 02/17/19 02/22/19 Rx doxycycline hyclate 100 mg PO BID 14 Days #28 cap 02/17/19 02/22/19 Rx moxifloxacin 400 mg PO DAILY 14 Days #14 tab 02/17/19 02/22/19 Rx fluconazole 150 mg tablet 150 mg PO Q3D 0 Days #2 tab 02/21/19 02/22/19 Rx Allergies Allergy/AdvReac Type Severity Reaction Status Date / Time bee pollen Allergy Severe Verified 02/22/19 14:45 aspirin Allergy Intermediate asthma Verified 02/22/19 14:45 attack ibuprofen Allergy Intermediate ASTHMA Verified 02/22/19 14:45 ATTACK Penicillins AdvReac Intermediate Verified 02/22/19 19:07 fluconazole AdvReac Sick, Verified 02/22/19 14:45 dizziness Past Med/Surg History Medical History Asthma Candidiasis of mouth History of vaginal delivery Surgical History S/P bronchoscopy Bronchial thermoplasty S/P endometrial ablation S/P nasal septoplasty Family History Mother Asthma Dermatomyositis Father FH: deafness or hearing loss Hypertension Family history unknown Grandmother Lung cancer Breast cancer, Onset Age: 35 paternal - unsure if completed genetic testing Grandfather Myocardial infarction Aunt Breast cancer maternal Family/Other Breast cancer maternal Other Prostate cancer Social History Preferred Language: Uzbek Communication Ability: Effective Health Insurance Assessor Required: No Beliefs That Will Affect Care: None Current Living Situation: Spouse Other Information That Helps Us Care for You: No Feels Safe at Home: Yes Safety Concerns: Feels Safe At This Time Smoking Status: Never smoker Second Hand Exposure: No ; Hx Alcohol Use: No Hx Substance Use: No Review of Systems A total of 10 systems reviewed and were otherwise negative Physical Exam Vital Signs: Vital Signs - 24 hr 02/22/19 13:56 02/22/19 15:21 02/22/19 15:22 Temperature 36.7 C Temperature Source Oral Pulse Rate 105 H Pulse Rate [Left] 109 H Pulse Rhythm [Left ] Regular Respiratory Rate 18 20 Respiratory Effort / Characteristics Non-Labored Sponta neous Non-Labored Respiratory Depth Normal Normal Respiratory Patter n Regular Blood Pressure 113/77 Blood Pressure [Ri ght Arm] 136/73 Blood Pressure Rita n 89 Blood Pressure Rita n [Right Arm] 94 Blood Pressure Pos ition Sitting Pulse Oximetry 97 99 98 Oxygen Delivery Me thod Room Air Room Air Room Air Sepsis Recent Feve r Within 48 Hours No Sepsis Action Take n by Nursing No Action Required 02/22/19 18:12 02/22/19 19:56 Temperature Temperature Source Pulse Rate Pulse Rate [Left] 119 H 109 H Pulse Rhythm [Left ] Respiratory Rate 24 17 Respiratory Effort / Characteristics Non-Labored Respiratory Depth Normal Respiratory Patter n Regular Blood Pressure Blood Pressure [Ri ght Arm] 136/67 119/75 Blood Pressure Rita n Blood Pressure Rita n [Right Arm] 90 89 Blood Pressure Pos ition Pulse Oximetry 97 96 Oxygen Delivery Me thod Room Air Room Air Sepsis Recent Feve r Within 48 Hours Sepsis Action Take n by Nursing Physical Exam: VITALS: Vitals are noted on the nurse's note and reviewed by myself. Vital signs stable. GENERAL: This is a 38-year-old white female, in no acute distress, nondiaphoretic, well-developed well-nourished. SKIN: The skin was without rashes, erythema, edema, or bruising. There is no tenting of the skin. Capillary refill less than 2 seconds. HEAD: Normocephalic atraumatic. NECK: Supple without nuchal rigidity. No lymphadenopathy. HEART: Regular rate and rhythm without murmurs gallops or rubs. LUNGS: Clear to auscultation bilaterally without wheezes, rales or rhonchi. No dullness to percussion. No retractions or accessory muscle use. ABDOMEN: Positive bowel sounds x 4. Normal tympanic percussion. Soft, nonten genna, without masses or organomegaly. Villaseñor sign negative. No guarding or rebound tenderness. MUSCULOSKELETAL: Tenderness within the deep pelvis overlying the iliac crest and radiating down into the left lower extremity. No muscle atrophy, erythema, or edema noted. Full range of motion without joint tenderness in all extremities. No tenderness to palpation. Normal gait. Strength 3/5 of the left lower extremity, otherwise strength 5/5 throughout. NEURO: Patient was alert and oriented to person place and time. Normal sensation to light and sharp touch. Deep tendon reflexes 2+ throughout. No focal neurological deficits. Course The patient was seen and evaluated as above. Previous medical records reviewed. IV access obtained, labs drawn. I discussed the case with my attending physician. I discussed the case with Dr. Barger, radiologist. He did review the previous images and questions a musculoskeletal origin of the abnormalities noted on previous CT imaging. He did recommend a lumbar spine MRI. I discussed this recommendation with the patient at bedside. She became extremely anxious about the MRI. She was premedicated with 1 mg sublingual Ativan. Labs reviewed by myself. I discussed the findings with the patient at bedside. The patient was signed out to Sabina De La Rosa PA-C at the end of my shift pending MRI. Please see her dictation regarding final disposition and management. Administered Medications Budesonide/Formoterol Fumarate (Symbicort 160mcg/4.5mcg) 2 puffs INH Q12 FELICIANO Stop: 03/24/19 22:53 Last Admin: 02/22/19 23:14 Dose: Not Given Documented by: [id number] Cefepime HCl 2,000 mg/ Syringe 20 mls @ 5.5 mls/min IV Q8H FELICIANO; Protocol Stop: 04/06/19 03:59 Last Admin: 02/23/19 04:30 Dose: 5.5 mls/min Documented by: [id number] Sodium Chloride (Nss 1000ml) 1,000 mls @ 80 mls/hr IV .[id number] FELICIANO Stop: 03/24/19 22:53 Last Admin: 02/22/19 23:07 Dose: 80 mls/hr Documented by: [id number] Discontinued Medications Acetaminophen (Ofirmev) Confirm Administered Dose 1,000 mg IV .STK-MED ONE Stop: 02/22/19 22:40 Last Admin: 02/22/19 22:42 Dose: 1,000 mg Documented by: [id number] Gadobutrol (Gadavist 65ml) 5.3 ml IV ONCE PRN PRN Reason: Interaction Checking Stop: 02/26/19 17:52 Last Admin: 02/22/19 17:54 Dose: 5.3 ml Documented by: [id number] Cefepime HCl (Maxipime) 2,000 mg in 20 mls @ 5 mls/min IV NOW STA Stop: 02/22/19 19:08 Last Admin: 02/22/19 19:45 Dose: 5 mls/min Documented by: [id number] Daptomycin 225 mg/ Syringe 4.5 mls @ 2.25 mls/min IV NOW ONE; Protocol Stop: 02/22/19 19:06 Last Admin: 02/22/19 19:47 Dose: 2.25 mls/min Documented by: [id number] Lorazepam (Ativan) 1 mg SL NOW STA Stop: 02/22/19 15:02 Last Admin: 02/22/19 15:10 Dose: 1 mg Documented by: [id number] Medical Decision Making Differential Diagnosis + herpes zoster, + gout, + cellulitis, + superficial thrombophlebitis, + lower extremity edema, + deep vein thrombosis, + muscular strain, + fracture, + disloc ation, + joint effusion, + infection, + soft tissue injury and + vascular compromise In addition to the above, thrombosis, abscess, myositis, sciatica, cauda equina, epidural abscess, osteomyelitis, fracture, aortic disease, metastatic disease, infection, renal colic, gastrointestinal, as well as others were entertained. Medical Records Attestation: I reviewed the patient's medical records. Previous hospitalization and recent visit with Dr. Zheng reviewed. Home Medications Current Medication List: was personally reviewed by me Laboratory Data Attestation: I reviewed the patient's lab results. Mild leukocytosis of 11,000. No anemia or thrombocytopenia. Coags normal. Renal, hepatic function and electrolytes without significant abnormality. Urinalysis negative for blood or infection. Urine test negative. Inflammatory markers elevated. Result diagrams: 02/23/19 06:19 02/22/19 15:01 Lab Results 02/22/19 02/22/19 02/22/19 Range/Units 15: 15: 15: WBC 11.65 H (4.8-10.8) K/uL RBC 4.75 (4.2-5.4) M/uL Hgb 15.2 (12.0-16.0) g/dL POC Hgb (12.0-16.0) g/dl Hct 44.3 (37-47) % POC Hct (37-47) % MCV 93.3 (80-100) fL MCH 32.0 (25-34) pg MCHC 34.3 (32-36) g/dL RDW Std Deviation 44.3 (36.4-46.3) fL RDW Coeff of Raquel 13.0 (11.5-14.5) % Plt Count 321 (130-400) K/uL MPV 11.1 H (7.4-10.4) fL Immature Gran % (Auto) 0.3 % Neut % (Auto) 80.5 % Lymph % (Auto) 10.0 % Edwards % (Auto) 8.3 % Eos % (Auto) 0.7 % Baso % (Auto) 0.2 % Immature Gran # (Auto) 0.04 H (0.00-0.02) K/uL Neut # (Auto) 9.37 H (1.4-6.5) K/uL Lymph # (Auto) 1.17 L (1.2-3.4) K/uL Edwards # (Auto) 0.97 H (0.11-0.59) K/uL Eos # (Auto) 0.08 (0-0.5) K/uL Baso # (Auto) 0.02 (0-0.2) K/uL ESR (0-21) mm/hr PT 11.4 (9.0-12.0) Seconds INR 1.1 (0.9-1.1) APTT 28.2 (21.0-31.0) Seconds PTT Ratio 1.0 POC Sodium (135-144) mEq/L Sodium 138 (136-145) mmol/L POC Potassium (3.3-5.0) mEq/L Potassium 4.2 (3.5-5.1) mmol/L POC Chloride (101-112) mEq/L Chloride 108 H (98-107) mmol/L Carbon Dioxide 25 (21-32) mmol/L POC Total CO2 (24-31) mEq/l Anion Gap 5.0 (3-11) POC Anion Gap (16-25) mmol/L POC BUN (7-18) mg/dl BUN 12 (7-18) mg/dl Creatinine 0.69 (0.6-1.2) mg/dl POC Creatinine (0.6-1.3) mg/dl Est Cr Clr Drug Dosing 94.6 ml/min Est GFR ( Amer) 128.0 Est GFR (Non-Af Amer) 110.4 BUN/Creatinine Ratio 18.0 (10-20) Glucose 85 (70-99) mg/dl POC Glucose (other) (70-99) mg/dl POC Lactic Acid Gilbert (0.90-1.70) mmol/L Calcium 9.5 (8.5-10.1) mg/dl POC Ioniz Calcium Patria (1.12-1.32) mmol/l Magnesium 2.2 (1.8-2.4) mg/dl Total Bilirubin 0.4 (0.2-1) mg/dl AST 14 L (15-37) U/L ALT 16 (12-78) U/L Alkaline Phosphatase 80 (45-117) U/L Total Creatine Kinase (26-192) U/L C-Reactive Protein (0-0.29) mg/dl Total Protein 8.0 (6.4-8.2) gm/dl Albumin 3.9 (3.4-5.0) gm/dl Globulin 4.1 H (2.5-4.0) gm/dl Albumin/Globulin Ratio 1.0 (0.9-2) Lipase 152 (73-393) U/L Specimen Hemolysis Urine Color Urine Appearance (Clear) Urine pH (4.5-7.5) Ur Specific [place] (1.000-1.030) Urine Protein (Negative) Urine Glucose (UA) (Negative) Urine Ketones (Negative) Urine Blood (Negative) Urine Nitrite (Negative) Urine Bilirubin (Negative) Urine Urobilinogen (Negative) Ur Leukocyte Esterase (Negative) Urine WBC (Auto) (0-5) /hpf Urine RBC (Auto) (0-4) /hpf U Hyaline Cast (Auto) (0-5) /lpf U Epithel Cells (Auto) (0-5) /lpf Urine Bacteria (Auto) (Negative) POC Ur Test (NEG) 02/22/19 02/22/19 02/22/19 Range/Units 15:01 15:01 15:01 WBC (4.8-10.8) K/uL RBC (4.2-5.4) M/uL Hgb (12.0-16.0) g/dL POC Hgb (12.0-16.0) g/dl Hct (37-47) % POC Hct (37-47) % MCV (80-100) fL MCH (25-34) pg MCHC (32-36) g/dL RDW Std Deviation (36.4-46.3) fL RDW Coeff of Raquel (11.5-14.5) % Plt Count (130-400) K/uL MPV (7.4-10.4) fL Immature Gran % (Auto) % Neut % (Auto) % Lymph % (Auto) % Edwards % (Auto) % Eos % (Auto) % Baso % (Auto) % Immature Gran # (Auto) (0.00-0.02) K/uL Neut # (Auto) (1.4-6.5) K/uL Lymph # (Auto) (1.2-3.4) K/uL Edwards # (Auto) (0.11-0.59) K/uL Eos # (Auto) (0-0.5) K/uL Baso # (Auto) (0-0.2) K/uL ESR 39 H (0-21) mm/hr PT (9.0-12.0) Seconds INR (0.9-1.1) APTT (21.0-31.0) Seconds PTT Ratio POC Sodium (135-144) mEq/L Sodium (136-145) mmol/L POC Potassium (3.3-5.0) mEq/L Potassium (3.5-5.1) mmol/L POC Chloride (101-112) mEq/L Chloride (98-107) mmol/L Carbon Dioxide (21-32) mmol/L POC Total CO2 (24-31) mEq/l Anion Gap (3-11) POC Anion Gap (16-25) mmol/L POC BUN (7-18) mg/dl BUN (7-18) mg/dl Creatinine (0.6-1.2) mg/dl POC Creatinine (0.6-1.3) mg/dl Est Cr Clr Drug Dosing ml/min Est GFR ( Amer) Est GFR (Non-Af Amer) BUN/Creatinine Ratio (10-20) Glucose (70-99) mg/dl POC Glucose (other) (70-99) mg/dl POC Lactic Acid Gilbert (0.90-1.70) mmol/L Calcium (8.5-10.1) mg/dl POC Ioniz Calcium Patria (1.12-1.32) mmol/l Magnesium (1.8-2.4) mg/dl Total Bilirubin (0.2-1) mg/dl AST (15-37) U/L ALT (12-78) U/L Alkaline Phosphatase (45-117) U/L Total Creatine Kinase 44 (26-192) U/L C-Reactive Protein 3.62 H (0-0.29) mg/dl Total Protein (6.4-8.2) gm/dl Albumin (3.4-5.0) gm/dl Globulin (2.5-4.0) gm/dl Albumin/Globulin Ratio (0.9-2) Lipase (73-393) U/L Specimen Hemolysis Urine Color Urine Appearance (Clear) Urine pH (4.5-7.5) Ur Specific [place] (1.000-1.030) Urine Protein (Negative) Urine Glucose (UA) (Negative) Urine Ketones (Negative) Urine Blood (Negative) Urine Nitrite (Negative) Urine Bilirubin (Negative) Urine Urobilinogen (Negative) Ur Leukocyte Esterase (Negative) Urine WBC (Auto) (0-5) /hpf Urine RBC (Auto) (0-4) /hpf U Hyaline Cast (Auto) (0-5) /lpf U Epithel Cells (Auto) (0-5) /lpf Urine Bacteria (Auto) (Negative) POC Ur Test (NEG) 02/22/19 02/22/19 02/22/19 Range/Units 15:11 15:12 15:16 WBC (4.8-10.8) K/uL RBC (4.2-5.4) M/uL Hgb (12.0-16.0) g/dL POC Hgb 15.3 (12.0-16.0) g/dl Hct (37-47) % POC Hct 45 (37-47) % MCV (80-100) fL MCH (25-34) pg MCHC (32-36) g/dL RDW Std Deviation (36.4-46.3) fL RDW Coeff of Raquel (11.5-14.5) % Plt Count (130-400) K/uL MPV (7.4-10.4) fL Immature Gran % (Auto) % Neut % (Auto) % Lymph % (Auto) % Edwards % (Auto) % Eos % (Auto) % Baso % (Auto) % Immature Gran # (Auto) (0.00-0.02) K/uL Neut # (Auto) (1.4-6.5) K/uL Lymph # (Auto) (1.2-3.4) K/uL Edwards # (Auto) (0.11-0.59) K/uL Eos # (Auto) (0-0.5) K/uL Baso # (Auto) (0-0.2) K/uL ESR (0-21) mm/hr PT (9.0-12.0) Seconds INR (0.9-1.1) APTT (21.0-31.0) Seconds PTT Ratio POC Sodium 138 (135-144) mEq/L Sodium (136-145) mmol/L POC Potassium 4.4 (3.3-5.0) mEq/L Potassium (3.5-5.1) mmol/L POC Chloride 103 (101-112) mEq/L Chloride (98-107) mmol/L Carbon Dioxide (21-32) mmol/L POC Total CO2 28 (24-31) mEq/l Anion Gap (3-11) POC Anion Gap 13.0 L (16-25) mmol/L POC BUN 15 (7-18) mg/dl BUN (7-18) mg/dl Creatinine (0.6-1.2) mg/dl POC Creatinine 0.5 L (0.6-1.3) mg/dl Est Cr Clr Drug Dosing ml/min Est GFR ( Amer) Est GFR (Non-Af Amer) BUN/Creatinine Ratio (10-20) Glucose (70-99) mg/dl POC Glucose (other) 88 (70-99) mg/dl POC Lactic Acid Gilbert 0.86 L (0.90-1.70) mmol/L Calcium (8.5-10.1) mg/dl POC Ioniz Calcium Patria 1.20 (1.12-1.32) mmol/l Magnesium (1.8-2.4) mg/dl Total Bilirubin (0.2-1) mg/dl AST (15-37) U/L ALT (12-78) U/L Alkaline Phosphatase (45-117) U/L Total Creatine Kinase (26-192) U/L C-Reactive Protein (0-0.29) mg/dl Total Protein (6.4-8.2) gm/dl Albumin (3.4-5.0) gm/dl Globulin (2.5-4.0) gm/dl Albumin/Globulin Ratio (0.9-2) Lipase (73-393) U/L Specimen Hemolysis Urine Color Yellow Urine Appearance Clear (Clear) Urine pH 5.5 (4.5-7.5) Ur Specific [place] 1.012 (1.000-1.030) Urine Protein Negative (Negative) Urine Glucose (UA) Negative (Negative) Urine Ketones Negative (Negative) Urine Blood Negative (Negative) Urine Nitrite Negative (Negative) Urine Bilirubin Negative (Negative) Urine Urobilinogen Negative (Negative) Ur Leukocyte Esterase Trace H (Negative) Urine WBC (Auto) 5-10 H (0-5) /hpf Urine RBC (Auto) 0-4 (0-4) /hpf U Hyaline Cast (Auto) 1-5 (0-5) /lpf U Epithel Cells (Auto) >30 H (0-5) /lpf Urine Bacteria (Auto) Negative (Negative) POC Ur Test (NEG) 02/22/19 Range/Units 15:17 WBC (4.8-10.8) K/uL RBC (4.2-5.4) M/uL Hgb (12.0-16.0) g/dL POC Hgb (12.0-16.0) g/dl Hct (37-47) % POC Hct (37-47) % MCV (80-100) fL MCH (25-34) pg MCHC (32-36) g/dL RDW Std Deviation (36.4-46.3) fL RDW Coeff of Raquel (11.5-14.5) % Plt Count (130-400) K/uL MPV (7.4-10.4) fL Immature Gran % (Auto) % Neut % (Auto) % Lymph % (Auto) % Edwards % (Auto) % Eos % (Auto) % Baso % (Auto) % Immature Gran # (Auto) (0.00-0.02) K/uL Neut # (Auto) (1.4-6.5) K/uL Lymph # (Auto) (1.2-3.4) K/uL Edwards # (Auto) (0.11-0.59) K/uL Eos # (Auto) (0-0.5) K/uL Baso # (Auto) (0-0.2) K/uL ESR (0-21) mm/hr PT (9.0-12.0) Seconds INR (0.9-1.1) APTT (21.0-31.0) Seconds PTT Ratio POC Sodium (135-144) mEq/L Sodium (136-145) mmol/L POC Potassium (3.3-5.0) mEq/L Potassium (3.5-5.1) mmol/L POC Chloride (101-112) mEq/L Chloride (98-107) mmol/L Carbon Dioxide (21-32) mmol/L POC Total CO2 (24-31) mEq/l Anion Gap (3-11) POC Anion Gap (16-25) mmol/L POC BUN (7-18) mg/dl BUN (7-18) mg/dl Creatinine (0.6-1.2) mg/dl POC Creatinine (0.6-1.3) mg/dl Est Cr Clr Drug Dosing ml/min Est GFR ( Amer) Est GFR (Non-Af Amer) BUN/Creatinine Ratio (10-20) Glucose (70-99) mg/dl POC Glucose (other) (70-99) mg/dl POC Lactic Acid Gilbert (0.90-1.70) mmol/L Calcium (8.5-10.1) mg/dl POC Ioniz Calcium Patria (1.12-1.32) mmol/l Magnesium (1.8-2.4) mg/dl Total Bilirubin (0.2-1) mg/dl AST (15-37) U/L ALT (12-78) U/L Alkaline Phosphatase (45-117) U/L Total Creatine Kinase (26-192) U/L C-Reactive Protein (0-0.29) mg/dl Total Protein (6.4-8.2) gm/dl Albumin (3.4-5.0) gm/dl Globulin (2.5-4.0) gm/dl Albumin/Globulin Ratio (0.9-2) Lipase (73-393) U/L Specimen Hemolysis Urine Color Urine Appearance (Clear) Urine pH (4.5-7.5) Ur Specific [place] (1.000-1.030) Urine Protein (Negative) Urine Glucose (UA) (Negative) Urine Ketones (Negative) Urine Blood (Negative) Urine Nitrite (Negative) Urine Bilirubin (Negative) Urine Urobilinogen (Negative) Ur Leukocyte Esterase (Negative) Urine WBC (Auto) (0-5) /hpf Urine RBC (Auto) (0-4) /hpf U Hyaline Cast (Auto) (0-5) /lpf U Epithel Cells (Auto) (0-5) /lpf Urine Bacteria (Auto) (Negative) POC Ur Test NEG (NEG) Blood Pressure Blood Pressure Findings: Elevated blood pressure Blood Pressure Disposition: elevated BP felt to be situational MDM Narrative This 38-year-old female patient presents emergency department today due to ongoing left pelvic pain radiating into the left groin and left lower extremity. She is weak on the left side when compared to the right and is having difficulty ambulating and lifting her left leg. She did have a CT scan diagnosing a myositis and possible abscess. She is currently on antibiotics and followed as an outpatient by Dr. Zheng with infectious disease and was sent to the ED due to no significant improvement symptomatically despite antibiotics. Given the patient's history and symptoms, I did question whether an MRI would be a more appropriate test at this time. I did speak with the radiologist who was in agreement and recommended an MRI of the lumbar spine with contrast after quick review of the CT scan performed last week. Labs for the most part unrevealing with the exception of elevated inflammatory markers while here in the ED. No indication for other intra-abdominal pathology at this time. The patient was ultimately signed out to Sabina De La Rosa PA-C at the end of my shift pending MRI results. Please see her dictation regarding final disposition and plan of this patient. The chart was completed utilizing [employer] voice recognition software. Grammatical errors, random word insertions, pronoun errors, and incomplete sentences are an occasional consequence of this system due to software limitations, ambient noise, and hardware issues. Any formal questions or concerns about the content, text, or information contained within the body of this dictation should be directly addressed to the provider for clarification. Impression & Plan Leg pain, Osteomyelitis of vertebra of lumbar region, Myositis Discharge Plan Visit Data *Final* Discharge Date/Time: 02/22/19 22:20 Chief Complaint: Abdominal Pain Stated Complaint: ABCESS IN ABDOMEN ED Provider: [facility] Midlevel Provider: Sabina De La Rosa Discharge Problem: Leg pain, Osteomyelitis of vertebra of lumbar region, Myositis Patient Disposition: Admitted As Inpatient Discharge Instructions Interventions: ED Discharge Assessment Last Done: 02/22/19 22:20
[2019-02-22] MEDS ORDERED: LORazepam 1 MG TAB SL STA (15:01)
[2019-02-22 15:18] LABS: Basophils # (auto) 0.02 K/uL (0-0.2); Basophils % (auto) 0.2 %; Eosinophils # (auto) 0.08 K/uL (0-0.5); Eosinophils % (auto) 0.7 %; Hematocrit (blood only) 44.3 % (37-47); Hemoglobin 15.2 g/dL (12.0-16.0); Immature Granulocytes # (auto) 0.04 K/uL (0.00-0.02); Immature Granulocytes % (auto) 0.3 %; Lymphocytes # (auto) 1.17 K/uL (1.2-3.4); Mean Corpuscular Hgb Conc 34.3 g/dL (32-36); Mean Corpuscular Volume 93.3 fL (80-100); Mean Platelet Volume 11.1 fL (7.4-10.4); Monocytes # (auto) 0.97 K/uL (0.11-0.59); Monocytes % (auto) 8.3 %; Neutrophils # (auto) 9.37 K/uL (1.4-6.5); Neutrophils % (auto) 80.5 %; Platelet Count 321 K/uL (130-400); RDW Standard Deviation 44.3 fL (36.4-46.3); Red Blood Count 4.75 M/uL (4.2-5.4); White Blood Count 11.65 K/uL (4.8-10.8)
[2019-02-22 15:28] LABS: iSTAT Creatinine 0.5 mg/dl (0.6-1.3); iSTAT Hemoglobin 15.3 g/dl (12.0-16.0); iSTAT Ionized Calcium 1.2 mmol/l (1.12-1.32); iSTAT Potassium 4.4 mEq/L (3.3-5.0)
[2019-02-22 15:29] LABS: INR 1.1 (0.9-1.1); Partial Thromboplastin Time 28.2 Seconds (21.0-31.0); Prothrombin Time 11.4 Seconds (9.0-12.0)
[2019-02-22 15:33] LABS: Appearance Urine Clear (Clear); Bacteria Urine Automated Negative (Negative); Bilirubin Urine Negative (Negative); Blood Urine Negative (Negative); Color Urine Yellow; Epithelial Cell Urine Auto >30 /lpf (0-5); Glucose Urine UA Negative (Negative); Ketones Urine Negative (Negative); Leukocyte Esterase Urine Trace (Negative); Nitrite Urine Negative (Negative); Protein Urine Negative (Negative); RBC Urine Automated 0-4 /hpf (0-4); Specific Gravity Urine 1.012 (1.000-1.030); Urobilinogen Urine Negative (Negative); pH Urine 5.5 (4.5-7.5)
[2019-02-22 15:38] LABS: Albumin Level 3.9 gm/dl (3.4-5.0); Bilirubin,Total 0.4 mg/dl (0.2-1); Calcium 9.5 mg/dl (8.5-10.1); Creatinine Clr Calc Pharmacy 94.6 ml/min; Est GFR (Non-African American) 110.4; Globulin 4.1 gm/dl (2.5-4.0); Magnesium 2.2 mg/dl (1.8-2.4); Potassium 4.2 mmol/L (3.5-5.1)
[2019-02-22] MEDS ORDERED: GADOBUTROL 65ML VIAL IV PRN (17:53)
--- NOTE | 2019-02-22 18:31 | Magnetic Resonance Report ---
MRI OF THE LUMBAR SPINE WITH AND WITHOUT CONTRAST CLINICAL HISTORY: back pain, ?iliopsoas abscess, weakness LLE COMPARISON STUDY: CT of the abdomen and pelvis February 14, 2019. Lumbar spine radiographs February 14, 2019. TECHNIQUE: Utilizing a 1.5 Rosina magnet and dedicated coil, multiplanar, multiecho imaging of the [facility] spine was performed before and after uneventful IV administration of 5.3 mL of Gadavist. FINDINGS: For purposes of numbering on this exam, the L5-S1 disc space is assigned to axial image 32 of 46. 11 lumbar spine is anatomic. Vertebral body heights are maintained. Disc spaces are preserved. There is no epidural fluid collection. Conus terminates at the mid L1 level. No abnormal enhancement within th e canal is noted. Note is made of extensive muscular edema and enhancement of the left psoas muscle a s well as mild edema and enhancement within portions of the left iliacus muscle. The rim-enhancing fl uid collection within the left psoas muscle on CT of February 14, 2019 is no longer identified. There i s no drainable fluid collection. There is fluid within the left psoas which may reflect phlegmon. The re is adjacent edema and enhancement. There is a small focus of marrow edema within the left transver se process of L3. T1 signal may be slightly diminished. There is increased T2 signal. Note is made of a multiloculated 3.1 x 1.8 cm T2 hyperintense lesion with enhancement along the superior aspect of t he left gluteal musculature on axial image 28 of 46. This contains fluid fluid levels on the T2-weigh merlene sequence. L1-2: The central canal and neural foramen are patent. L2-3: The central canal and neural foramen are patent. L3-4: The central canal and neural foramen are patent. L4-5: The central canal and neural foramen are patent. L5-S1: There is minimal disc bulge. Central canal and neural foramen are patent. IMPRESSION: 1. Extensive intramuscular edema and enhancement within the left psoas muscle and mild edema and enha ncement within the left iliacus and left paraspinal musculature. The abscess on CT of February 14, 2019 is no longer identified. No rim-enhancing fluid collection. Fluid within the muscle may reflect phle gmon. The findings suggest an infectious myositis. No epidural fluid collection. Inflammatory process extends to the left L2-L3 and L3-L4 neural foramen. A traumatic etiology could appear similar althou gh is considered less likely. Discussed with Dr. Cleaning at time of dictation. 2. Small focus of marrow edema within the left transverse process of L3 which favors osteomyelitis. 3. 3.1 x 1.8 cm multiloculated T2 hyperintense enhancing lesion with fluid fluid levels along the sup erior aspect of the left gluteal musculature. This is nonspecific but favors a hemangioma/lymphangiom a. An MRI in 6 months to ensure stability is recommended. ACT 112: Negative or not required by law. Electronically signed by: James Ferris M.D. 02/22/2019 6:30 PM
[2019-02-22] MEDS ORDERED: DAPTOmycin 225 MG in SYRINGE 0 ML IV ONE (19:05)
[2019-02-22] MEDS ORDERED: CEFEPIME 2,000 MG/20 ML VIAL IV STA (19:05)
[2019-02-22 19:35] LABS: Creatine Kinase 44 U/L (26-192)
--- NOTE | 2019-02-22 20:26 | History & Physical Report ---
Date of Service February 22, 2019 Assessment & Plan (1) Myositis: Devaughn Carlson is a 38 y/o female with past medical history of severe persistent asthma, oral thrush on Clotrimazole, and recent admission for Left Psoas Abscess discharged on Avelox and Doxcycline presented to [facility] from ID appt for non-improving symptoms of left leg pain and difficulty with ambulation. She was recently admitted to [facility] on 02/14-02/17/2019 and appears to have failed outpatient treatment with Avelox and Doxycycline. Myositis - No determined etiology of cause from previous workup. She had dental work end of December, also fell down concrete stairs 01/30 with hematoma without abrasi ons, she had numerous blood draws she notes for workup of Immunology from her Oral Thrush, has needed Prednisone for her asthma with last use September 2018, as all potential causes. She denies previous hospitalizations as a child for infectious causes doubt congenital cause. She had negative HIV from previous admission. - Negative Anti-Sarai prior and negative RONAL for consideration for inflammatory m yopathy. - MRI of Lumbar Spine performed in ED: Extensive intramuscular edema and enhancement within the left psoas muscle and mild edema and enhancement within the left iliacus and left paraspinal musculature; Abscess on CT of 02/14/19 is no longer identified. Fluid in muscle may reflect phlegmon, but findings suggest an infectious myositis. Inflammatory process extends to the left L2-L3 and L3-L4 neural foramen. Small focus of marrow edema within the left transverse process of L3 which favors osteomyelitis. 3.1 x 1.8 cm multiloculated T2 hyperintense enhancing lesion with fluid fluid levels along the superior aspect of the left gluteal musculature. This is nonspecific but favors a hemangioma/lymphangioma. An MRI in 6 months to ensure stability is recommended. - Worsening Myositis possible as now extending to left iliacus and left paraspinal muscles and now with new onset osteomyelitis. - As patient failed outpatient and now with Osteomyelitis, this favors need for alf anti-biotics. ID relayed to ED provider to start on Daptomycin 225mg q24h and Cefepime 2gm (opted for q8h but will defer to day team if q12h would be adequate coverage). 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 - Patient requires further workup, will consult Cards for EZE to rule out Valve vegetations as cause for possible septic emboli being cause. - Infectious Disease consulted for recs - Will check CK levels and LDH, ESR level of 39 and CRP elevated from prior admission to 3.62. - Previous had Aldolase level WNL for inflammatory myopathy workup, will defer to day team if they would like to recheck. - Suspect this is infectious process that now appears to require IV abx. Osteomyelitis of Transverse Process of L3 - antibiotics as mentioned above Candidiasis of mouth - Most likely from chronic inhaled steroids from treatment of severe asthma - No appearance of lesions on exam here, will hold Clotrimazole 10mg mucous membrane TID Tachycardia - Most likely stress response from inflammatory process and pain - Will give NSS @80mLs/hr since going to be NPO at midnight if able to get EZE in morning Asthma - Xopenex q4H PRN for wheezing - Symbicort 2 puffs INH q12H DVT ppx: SCDs, avoid chemical as prior Psoas abscess do not want to risk psoas hematoma FENGI: NSS @80mls/hr, will feed tonight then make NPO at midnight Code: Full Status Disposition: PCU/Tele (2) Osteomyelitis of vertebra of lumbar region: (3) Leg pain: (4) Asthma: (5) Candidiasis of mouth: (6) Tachycardia: (7) Acid reflux disease: History of Present Illness Chief Complaint: Left leg pain Primary Care Provider: Justine Hunt MD Devaughn Carlson is a 38 y/o female with past medical history of severe persistent asthma, oral thrush on Clotrimazole, and recent admission for Left Psoas Abscess discharged on Avelox and Doxcycline presented to [facility] from ID appt for non-improving symptoms of left leg pain and difficulty with ambulation. She was recently admitted to [facility] on 02/14-02/17/2019 and was receiving outpatient treatment with Avelox and Doxycycline. No determined etiology of cause from previous workup. She had dental work end of December, also fell down concrete stairs 01/30 with hematoma without abrasions, she had numerous blood draws she notes for workup of Immunology from her Oral Thrush, has needed Prednisone for her asthma with last use September 2018, as all potential causes. She denies previous hospitalizations as a child for infectious causes doubt congenital cause. She had negative HIV from previous admission. She notes that her symptoms weren't worsening that they were just not improving. She denies any fever or chills or IV drug use. She notes compliance with her medications on outpatient. She also notes being on Clotrimazole for oral thrush. Allergies Allergy/AdvReac Type Severity Reaction Status Date / Time bee pollen Allergy Severe Verified 02/22/19 14:45 aspirin Allergy Intermediate asthma Verified 02/22/19 14:45 attack ibuprofen Allergy Intermediate ASTHMA Verified 02/22/19 14:45 ATTACK Penicillins AdvReac Intermediate Verified 02/22/19 19:07 fluconazole AdvReac Sick, Verified 02/22/19 14:45 dizziness Home Medications Home Medications Medication Instructions Recorded Confirmed Type levalbuterol HCl 0.63 mg/3 mL 0.63 mg INH Q4H PRN #120 vial 09/14/18 02/22/19 Rx solution for nebulization levalbuterol tartrate 45 2 puffs INH Q4H PRN #15 gm 09/14/18 02/22/19 Rx mcg/actuation aerosol inhaler riboflavin (vitamin B2) 100 mg 200 mg PO QAM tab 10/11/18 02/22/19 History tablet Culturelle 1 cap PO QAM 02/14/19 02/22/19 History Multiple Vitamin, Womens 1 tab PO QAM 02/14/19 02/22/19 History ascorbic acid (vitamin C) 100 mg PO QAM 02/14/19 02/22/19 History esomeprazole magnesium [Nexium] 20 mg PO QAM 02/14/19 02/22/19 History Symbicort 2 puffs INH Q12H #10.2 gm 02/17/19 02/22/19 Rx clotrimazole 10 mg MUCOUS MEMBRANE TID #60 tab 02/17/19 02/22/19 Rx doxycycline hyclate 100 mg PO BID 14 Days #28 cap 02/17/19 02/22/19 Rx moxifloxacin 400 mg PO DAILY 14 Days #14 tab 02/17/19 02/22/19 Rx fluconazole 150 mg tablet 150 mg PO Q3D 0 Days #2 tab 02/21/19 02/22/19 Rx Past Med/Surg History Medical History Asthma Candidiasis of mouth History of vaginal delivery Surgical History S/P bronchoscopy Bronchial thermoplasty S/P endometrial ablation S/P nasal septoplasty Family History Mother Asthma Dermatomyositis Father FH: deafness or hearing loss Hypertension Family history unknown Grandmother Lung cancer Breast cancer, Onset Age: 35 paternal - unsure if completed genetic testing Grandfather Myocardial infarction Aunt Breast cancer maternal Family/Other Breast cancer maternal Other Prostate cancer Social History Preferred Language: Yi Communication Ability: Effective Member Of Congress Required: No Beliefs That Will Affect Care: None Current Living Situation: Spouse Other Information That Helps Us Care for You: No Feels Safe at Home: Yes Safety Concerns: Feels Safe At This Time Smoking Status: Never smoker Second Hand Exposure: No ; Hx Alcohol Use: No Hx Substance Use: No Review of Systems Review of Systems: All systems reviewed & are unremarkable except as noted in HPI & below Constitutional: no fever and no chills Eyes: no diplopia and no eye pain Ear, Nose, Mouth, Throat: no ear pain, no dental caries and no dental abscess Respiratory: no cough and no dyspnea Cardiovascular: no chest pain and no edema Gastrointestinal: no abdominal pain, no nausea and no vomiting Genitourinary: no dysuria and no difficulty urinating was concerned about vaginal yeast infection from recent abx received Rx for Diflucan but did not take Musculoskeletal: no joint pain and no swelling Integumentary: no rash and no erythema Neurologic: no dizziness and no headache(s) Psychiatric: + anxiety (over current illness) Physical Exam Constitutional: WD/WN, vitals as above cooperative and comfortable Eyes: PERRL, conjunctivae normal, anicteric sclerae ENMT: external ear and nose normal, oropharynx normal Neck: trachea midline, no thyromegaly Respiratory: normal respiratory effort, lungs clear to auscultation Cardiovascular: Rate/Rhythm: regular rhythm and + tachycardic Extremities: no pedal edema Gastrointestinal (Abdomen): Percussion/Palpation: abdomen soft; abdomen nontender, no guarding and abdomen not rigid Musculoskeletal: pain with left leg flexion; no sensory loss, N/V intact Skin: no rashes, warm and dry no overlying erythema Neurologic: moves all extremities and awake Psychiatric: A+Ox3, euthymic affect Results & Data Vital Signs (Past 12 Hours) Vital Signs Temp Pulse Pulse Resp BP BP Pulse Ox 02/22/19 19:56 109 H 17 119/75 96 02/22/19 18:12 119 H 24 136/67 97 02/22/19 15:22 109 H 20 136/73 98 02/22/19 15:21 99 02/22/19 13:56 36.7 C 105 H 18 113/77 97 Laboratory Results Laboratory Results - last 24 hr 02/22/19 02/22/19 02/22/19 15:01 15:01 15:01 WBC 11.65 H RBC 4.75 Hgb 15.2 POC Hgb Hct 44.3 POC Hct MCV 93.3 MCH 32.0 MCHC 34.3 RDW Std Deviation 44.3 RDW Coeff of Raquel 13.0 Plt Count 321 MPV 11.1 H Immature Gran % (Auto) 0.3 Neut % (Auto) 80.5 Lymph % (Auto) 10.0 [place] % (Auto) 8.3 Eos % (Auto) 0.7 Baso % (Auto) 0.2 Immature Gran # (Auto) 0.04 H Neut # (Auto) 9.37 H Lymph # (Auto) 1.17 L [place] # (Auto) 0.97 H Eos # (Auto) 0.08 Baso # (Auto) 0.02 ESR PT 11.4 INR 1.1 APTT 28.2 PTT Ratio 1.0 POC Sodium Sodium 138 POC Potassium Potassium 4.2 POC Chloride Chloride 108 H Carbon Dioxide 25 POC Total CO2 Anion Gap 5.0 POC Anion Gap POC BUN BUN 12 Creatinine 0.69 POC Creatinine Est Cr Clr Drug Dosing 94.6 Est GFR ( Amer) 128.0 Est GFR (Non-Af Amer) 110.4 BUN/Creatinine Ratio 18.0 Glucose 85 POC Glucose (other) POC Lactic Acid Gilbert Calcium 9.5 POC Ioniz Calcium Patria Magnesium 2.2 Total Bilirubin 0.4 AST 14 L ALT 16 Alkaline Phosphatase 80 Lactate Dehydrogenase Total Creatine Kinase C-Reactive Protein Total Protein 8.0 Albumin 3.9 Globulin 4.1 H Albumin/Globulin Ratio 1.0 Lipase 152 TSH Specimen Hemolysis Urine Color Urine Appearance Urine pH Ur Specific [place] Urine Protein Urine Glucose (UA) Urine Ketones Urine Blood Urine Nitrite Urine Bilirubin Urine Urobilinogen Ur Leukocyte Esterase Urine WBC (Auto) Urine RBC (Auto) U Hyaline Cast (Auto) U Epithel Cells (Auto) Urine Bacteria (Auto) POC Ur Test 02/22/19 02/22/19 02/22/19 15:01 15:01 15:01 WBC RBC Hgb POC Hgb Hct POC Hct MCV MCH MCHC RDW Std Deviation RDW Coeff of Raquel Plt Count MPV Immature Gran % (Auto) Neut % (Auto) Lymph % (Auto) [place] % (Auto) Eos % (Auto) Baso % (Auto) Immature Gran # (Auto) Neut # (Auto) Lymph # (Auto) [place] # (Auto) Eos # (Auto) Baso # (Auto) ESR 39 H PT INR APTT PTT Ratio POC Sodium Sodium POC Potassium Potassium POC Chloride Chloride Carbon Dioxide POC Total CO2 Anion Gap POC Anion Gap POC BUN BUN Creatinine POC Creatinine Est Cr Clr Drug Dosing Est GFR ( Amer) Est GFR (Non-Af Amer) BUN/Creatinine Ratio Glucose POC Glucose (other) POC Lactic Acid Gilbert Calcium POC Ioniz Calcium [place] Magnesium Total Bilirubin AST ALT Alkaline Phosphatase Lactate Dehydrogenase Total Creatine Kinase 44 C-Reactive Protein 3.62 H Total Protein Albumin Globulin Albumin/Globulin Ratio Lipase TSH Specimen Hemolysis Urine Color Urine Appearance Urine pH Ur Specific [place] Urine Protein Urine Glucose (UA) Urine Ketones Urine Blood Urine Nitrite Urine Bilirubin Urine Urobilinogen Ur Leukocyte Esterase Urine WBC (Auto) Urine RBC (Auto) U Hyaline Cast (Auto) U Epithel Cells (Auto) Urine Bacteria (Auto) POC Ur Test 02/22/19 02/22/19 02/22/19 15:01 15:01 15:11 WBC RBC Hgb POC Hgb Hct POC Hct MCV MCH MCHC RDW Std Deviation RDW Coeff of Raquel Plt Count MPV Immature Gran % (Auto) Neut % (Auto) Lymph % (Auto) [place] % (Auto) Eos % (Auto) Baso % (Auto) Immature Gran # (Auto) Neut # (Auto) Lymph # (Auto) [place] # (Auto) Eos # (Auto) Baso # (Auto) ESR PT INR APTT PTT Ratio POC Sodium Sodium POC Potassium Potassium POC Chloride Chloride Carbon Dioxide POC Total CO2 Anion Gap POC Anion Gap POC BUN BUN Creatinine POC Creatinine Est Cr Clr Drug Dosing Est GFR ( Amer) Est GFR (Non-Af Amer) BUN/Creatinine Ratio Glucose POC Glucose (other) POC Lactic Acid Gilbert Calcium POC Ioniz Calcium Patria Magnesium Total Bilirubin AST ALT Alkaline Phosphatase Lactate Dehydrogenase Pending Total Creatine Kinase Pending C-Reactive Protein Total Protein Albumin Globulin Albumin/Globulin Ratio Lipase TSH Pending Specimen Hemolysis Urine Color Yellow Urine Appearance Clear Urine pH 5.5 Ur Specific [place] 1.012 Urine Protein Negative Urine Glucose (UA) Negative Urine Ketones Negative Urine Blood Negative Urine Nitrite Negative Urine Bilirubin Negative Urine Urobilinogen Negative Ur Leukocyte Esterase Trace H Urine WBC (Auto) 5-10 H Urine RBC (Auto) 0-4 U Hyaline Cast (Auto) 1-5 U Epithel Cells (Auto) >30 H Urine Bacteria (Auto) Negative POC Ur Test 02/22/19 02/22/19 02/22/19 15:12 15:16 15:17 WBC RBC Hgb POC Hgb 15.3 Hct POC Hct 45 MCV MCH MCHC RDW Std Deviation RDW Coeff of Raquel Plt Count MPV Immature Gran % (Auto) Neut % (Auto) Lymph % (Auto) [place] % (Auto) Eos % (Auto) Baso % (Auto) Immature Gran # (Auto) Neut # (Auto) Lymph # (Auto) [place] # (Auto) Eos # (Auto) Baso # (Auto) ESR PT INR APTT PTT Ratio POC Sodium 138 Sodium POC Potassium 4.4 Potassium POC Chloride 103 Chloride Carbon Dioxide POC Total CO2 28 Anion Gap POC Anion Gap 13.0 L POC BUN 15 BUN Creatinine POC Creatinine 0.5 L Est Cr Clr Drug Dosing Est GFR ( Amer) Est GFR (Non-Af Amer) BUN/Creatinine Ratio Glucose POC Glucose (other) 88 POC Lactic Acid Gilbert 0.86 L Calcium POC Ioniz Calcium Patria 1.20 Magnesium Total Bilirubin AST ALT Alkaline Phosphatase Lactate Dehydrogenase Total Creatine Kinase C-Reactive Protein Total Protein Albumin Globulin Albumin/Globulin Ratio Lipase TSH Specimen Hemolysis Urine Color Urine Appearance Urine pH Ur Specific [place] Urine Protein Urine Glucose (UA) Urine Ketones Urine Blood Urine Nitrite Urine Bilirubin Urine Urobilinogen Ur Leukocyte Esterase Urine WBC (Auto) Urine RBC (Auto) U Hyaline Cast (Auto) U Epithel Cells (Auto) Urine Bacteria (Auto) POC Ur Test NEG Diagnostic Findings Lumbar MRI 1. Extensive intramuscular edema and enhancement within the left psoas muscle and mild edema and enhancement within the left iliacus and left paraspinal musculature. The abscess on CT of February 14, 2019 is no longer identified. No rim-enhancing fluid collection. Fluid within the muscle may reflect phlegmon. The findings suggest an infectious myositis. No epidural fluid collection. Inflammatory process extends to the left L2-L3 and L3-L4 neural foramen. A traumatic etiology could appear similar although is considered less likely. Discussed with Dr. Cleaning at time of dictation. 2. Small focus of marrow edema within the left transverse process of L3 which favors osteomyelitis. 3. 3.1 x 1.8 cm multiloculated T2 hyperintense enhancing lesion with fluid fluid levels along the superior aspect of the left gluteal musculature. This is nonspecific but favors a hemangioma/lymphangioma. An MRI in 6 months to ensure stability is recommended. Medications Administered Gadobutrol (Gadavist 65ml) 5.3 ml IV ONCE PRN PRN Reason: Interaction Checking Stop: 02/26/19 17:52 Last Admin: 02/22/19 17:54 Dose: 5.3 ml Documented by: [id number] Code Status & VTE Plan Code Status full code VTE Prophylaxis Plan VTE Prophylaxis will be ordered: Yes Reason for no VTE drug order: Treatment not indicated Supervising Physician Co-Signing Physician Notes Attending addendum: I have physically seen this patient, have supervised the medical residents activities, and agree with the H&P unless as otherwise noted. Assessment and Plan: Myositis/recent admission for left psoas abscess/osteomyelitis of L3 transverse process- Imaging suggests resolution of previous abscess, noted during admission of 02/14- 02/17/2019 Now with extensive intramuscular edema and enhancement within the left psoas muscle extending within the left iliac crest and left paraspinal musculature. Patient will need PICC line. Placed on daptomycin IV and cefepime IV. Consult Dr. Zheng, infectious disease. Consult cardiology to assess for possible SBE. Assess for possible dental source. May consider IR assessment. Remainder of orders and notations as noted. Resident Activity Tracking Resident Involvement: Resident Care Provided Care Provided: Adult Hospital Medicine (1) Myositis Laterality: left Myositis location: lower extremity Myositis type: unspecified type Qualified Code(s): M60.9 - Myositis, unspecified
[2019-02-22 22:20] LABS: Thyroid Stimulating Hormone 2.57 uIu/ml (0.300-4.500)
[2019-02-22] MEDS ORDERED: ACETAMINOPHEN 1000 MG/100 ML IV IV ONE (22:39)
[2019-02-22] MEDS ORDERED: MoRPHine SULFATE 2 MG/ML CARP IV PRN (22:54)
[2019-02-22] MEDS ORDERED: LEVALBUTEROL HCL 0.63 MG/3 ML NEB INH PRN (22:54)
[2019-02-22] MEDS ORDERED: LEVALBUTEROL TARTRATE 15 GM HFA.AER.AD INH PRN (22:54)
[2019-02-22] MEDS ORDERED: ONDANSETRON INJ 2 MG/ML 2 ML VIAL IV PRN (22:54)
[2019-02-22] MEDS: SODIUM CHLORIDE 0.9% 1000ML 1,000 ML IV SCH (23:07)
[2019-02-22] MEDS: BUDESONIDE/FORMOTEROL FUMARATE 160/4.5 60 PUFFS/INHALER INH SCH (23:14)
--- NOTE | 2019-02-23 00:22 | Emergency Department Note ---
ED Visit Note Care of this patient was signed out to me by Radha Orozco PA-C at change of shift pending MRI results. MRI was performed as noted below. Radiologist did call at the time of the MRI read. Patient was found to have extensive intramuscular edema and enhancement of the left psoas muscle as well as more mild findings within the left iliac us and paraspinal musculature. There is no identifiable abscess, but there are findings suggestive of a possible phlegmon. This appears to suggest a myositis. Patient does appear to have a small amount of marrow edema of the left transverse process of L3 concerning for osteomyelitis. I did speak with Dr. Zheng regarding the patient. She recommended broadening the coverage to cefepime and daptomycin. Patient does not seem to have any surgical emergency at this time. She [facility] be [facility] for further evaluation and care. All findings were discussed with the patient, who did verbalize her understanding. MRI OF THE LUMBAR SPINE WITH AND WITHOUT CONTRAST FINDINGS: For purposes of numbering on this exam, the L5-S1 disc space is assigned to axial image 32 of 46. 11 lumbar spine is anatomic. Vertebral body heights are maintained. Disc spaces are preserved. There is no epidural fluid collection. Conus terminates at the mid L1 level. No abnormal enhancement within the canal is noted. Note is made of extensive muscular edema and enhancement of the left psoas muscle as well as mild edema and enhancement within portions of the left iliacus muscle. The rim-enhancing fluid collection within the left psoas muscle on CT of February 14, 2019 is no longer identified. There is no drainable fluid collection. There is fluid within the left psoas which may reflect phlegmon. There is adjacent edema and enhancement. There is a small focus of marrow edema within the left transverse process of L3. T1 signal may be slightly diminished. There is increased T2 signal. Note is made of a multiloculated 3.1 x 1.8 cm T2 hyperintense lesion with enhancement along the superior aspect of the left gluteal musculature on axial image 28 of 46. This contains fluid fluid levels on the T2-weighted sequence. L1-2: The central canal and neural foramen are patent. L2-3: The central canal and neural foramen are patent. L3-4: The central canal and neural foramen are patent. L4-5: The central canal and neural foramen are patent. L5-S1: There is minimal disc bulge. Central canal and neural foramen are patent. IMPRESSION: 1. Extensive intramuscular edema and enhancement within the left psoas muscle and mild edema and enhancement within the left iliacus and left paraspinal musculature. The abscess on CT of February 14, 2019 is no longer identified. No rim-enhancing fluid collection. Fluid within the muscle may reflect phlegmon. The findings suggest an infectious myositis. No epidural fluid collection. Inflammatory process extends to the left L2-L3 and L3-L4 neural foramen. A traumatic etiology could appear similar although is considered less likely. Discussed with Dr. Cleaning at time of dictation. 2. Small focus of marrow edema within the left transverse process of L3 which favors osteomyelitis. 3. 3.1 x 1.8 cm multiloculated T2 hyperintense enhancing lesion with fluid fluid levels along the superior aspect of the left gluteal musculature. This is nonspecific but favors a hemangioma/lymphangioma. An MRI in 6 months to ensure stability is recommended.
[2019-02-23] MEDS: CEFEPIME 2,000 MG in SYRINGE 7.5 ML IV SCH ×3 (04:30→21:01)
[2019-02-23 06:42] LABS: Basophils # (auto) 0.01 K/uL (0-0.2); Basophils % (auto) 0.2 %; Eosinophils # (auto) 0.14 K/uL (0-0.5); Eosinophils % (auto) 2.2 %; Hematocrit (blood only) 40.2 % (37-47); Hemoglobin 13.5 g/dL (12.0-16.0); Immature Granulocytes # (auto) 0.02 K/uL (0.00-0.02); Immature Granulocytes % (auto) 0.3 %; Lymphocytes # (auto) 1.02 K/uL (1.2-3.4); Lymphocytes % (auto) 15.9 %; Mean Corpuscular Hemoglobin 31.3 pg (25-34); Mean Corpuscular Hgb Conc 33.6 g/dL (32-36); Mean Corpuscular Volume 93.3 fL (80-100); Mean Platelet Volume 10.8 fL (7.4-10.4); Monocytes # (auto) 0.69 K/uL (0.11-0.59); Monocytes % (auto) 10.7 %; Neutrophils # (auto) 4.55 K/uL (1.4-6.5); Neutrophils % (auto) 70.7 %; Platelet Count 262 K/uL (130-400); RDW Standard Deviation 44.7 fL (36.4-46.3); Red Blood Count 4.31 M/uL (4.2-5.4); White Blood Count 6.43 K/uL (4.8-10.8)
--- NOTE | 2019-02-23 07:08 | Cardiology Consultation ---
Date of Consultation February 23, 2019 Assessment & Plan (1) Osteomyelitis of vertebra of lumbar region: History of Present Illness Attending Physician: Royer Henley MD History of Present Illness The patient is a 38-year-old female with a past medical history significant for recently diagnosed psoas muscle infection possible myositis who is being treated as an outpatient by infectious disease for the above complaint. Patient notes that she was starting to feel better after her initial evaluation in the hospital approximately 6 weeks ago but then she noted the changes started to worsen therefore was seen by infectious disease yesterday. Infectious disease ordered an MRI which showed further spread of inflammation to include the gluteal region as well. Patient was subsequently sent to the ER for admission to the hospital service for further evaluation and was started on IV antibiotic therapy by infectious disease. Cardiology was consulted for the consideration for transesophageal echocardiogram. Upon seeing the patient this morning patient notes that she is feeling slightly better noting her pain in her back and legs have decreased and she has gained some function back in her left lower extremity. She denied any chest pains palpitations shortness of breath lightheadedness or any other cardiac complaints. She denied any fevers chills night sweats or any other constitutional symptoms other than above noted. Allergies Allergy/AdvReac Type Severity Reaction Status Date / Time bee pollen Allergy Severe Verified 02/22/19 14:45 aspirin Allergy Intermediate asthma Verified 02/22/19 14:45 attack ibuprofen Allergy Intermediate ASTHMA Verified 02/22/19 14:45 ATTACK Penicillins AdvReac Intermediate Verified 02/22/19 19:07 fluconazole AdvReac Sick, Verified 02/22/19 14:45 dizziness Home Medications Home Medications Medication Instructions Recorded Confirmed Type levalbuterol HCl 0.63 mg/3 mL 0.63 mg INH Q4H PRN #120 vial 09/14/18 02/22/19 Rx solution for nebulization levalbuterol tartrate 45 2 puffs INH Q4H PRN #15 gm 09/14/18 02/22/19 Rx mcg/actuation aerosol inhaler riboflavin (vitamin B2) 100 mg 200 mg PO QAM tab 10/11/18 02/22/19 History tablet Culturelle 1 cap PO QAM 02/14/19 02/22/19 History Multiple Vitamin, Womens 1 tab PO QAM 02/14/19 02/22/19 History ascorbic acid (vitamin C) 100 mg PO QAM 02/14/19 02/22/19 History esomeprazole magnesium [Nexium] 20 mg PO QAM 02/14/19 02/22/19 History Symbicort 2 puffs INH Q12H #10.2 gm 02/17/19 02/22/19 Rx clotrimazole 10 mg MUCOUS MEMBRANE TID #60 tab 02/17/19 02/22/19 Rx doxycycline hyclate 100 mg PO BID 14 Days #28 cap 02/17/19 02/22/19 Rx moxifloxacin 400 mg PO DAILY 14 Days #14 tab 02/17/19 02/22/19 Rx fluconazole 150 mg tablet 150 mg PO Q3D 0 Days #2 tab 02/21/19 02/22/19 Rx Patient History Medical History Asthma Candidiasis of mouth History of vaginal delivery Surgical History S/P bronchoscopy Bronchial thermoplasty S/P endometrial ablation S/P nasal septoplasty Family History Mother Asthma Dermatomyositis Father FH: deafness or hearing loss Hypertension Family history unknown Grandmother Lung cancer Breast cancer, Onset Age: 35 paternal - unsure if completed genetic testing Grandfather Myocardial infarction Aunt Breast cancer maternal Family/Other Breast cancer maternal Other Prostate cancer Social History Preferred Language: Spanish Communication Ability: Effective 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 Beliefs That Will Affect Care: None Current Living Situation: Spouse Other Information That Helps Us Care for You: No Feels Safe at Home: Yes Safety Concerns: Feels Safe At This Time Smoking Status: Never smoker Second Hand Exposure: No ; Hx Alcohol Use: No Hx Substance Use: No Review of Systems Review of Systems: All systems reviewed & are unremarkable except as noted in HPI & below Physical Exam Physical Exam: General appearance: She is awake alert and oriented no apparent distress stable pleasant HEENT: Normocephalic atraumatic sclera nonicteric mucous membranes somewhat dry Neck: Supple no JVD bruits adenopathy or thyromegaly noted Lungs: Clear to auscultation bilaterally Cardiovascular: Regular rate and rhythm with no murmurs rubs or gallops appreciated normal S1-S2 and nondisplaced PMI Abdomen: Soft nontender nondistended with positive bowel sounds or bruits or masses noted Extremities: No clubbing cyanosis or edema Neuro: Grossly nonfocal Results & Data Vital Signs (Past 12 Hours) Vital Signs Temp Pulse Resp BP Pulse Ox 02/23/19 06:28 36.9 C 88 20 101/67 97 02/23/19 04:34 36.9 C 84 15 96/61 L 99 02/22/19 23:43 36.8 C 96 H 18 121/78 96 02/22/19 21:47 118 H 19 128/79 96 02/22/19 19:56 109 H 17 119/75 96
[2019-02-23 07:20] LABS: Albumin Level 3.2 gm/dl (3.4-5.0); BUN Creatinine Ratio 19.7 (10-20); Calcium 8.7 mg/dl (8.5-10.1); Creatinine Clr Calc Pharmacy 93.4 ml/min; Est GFR (Non-African American) 110.4; Potassium 4.2 mmol/L (3.5-5.1)
[2019-02-23 07:35] LABS: Albumin Globulin Ratio 0.9 (0.9-2); Bilirubin,Total 0.6 mg/dl (0.2-1); Globulin 3.5 gm/dl (2.5-4.0); Total Protein 6.7 gm/dl (6.4-8.2)
[2019-02-23] MEDS: BUDESONIDE/FORMOTEROL FUMARATE 160/4.5 60 PUFFS/INHALER INH SCH ×2 (08:43→21:01)
[2019-02-23] MEDS: LACTOBACILLUS ACIDOPHILUS (FLORANEX) TAB PO SCH (08:43)
[2019-02-23] MEDS: PANTOprazole 40 MG TAB PO SCH (08:43)
[2019-02-23] MEDS: ACETAMINOPHEN 1,000 MG/100 ML VIAL IV PRN ×2 (08:45→21:00)
[2019-02-23] MEDS ORDERED: RIBOFLAVIN 200 MG PO SCH (09:00)
[2019-02-23] MEDS: SODIUM CHLORIDE 0.9% 1000ML 1,000 ML IV SCH ×2 (11:38→23:53)
[2019-02-23] MEDS: CLOTRIMAZOLE 10 MG TROCHE BUCCAL SCH ×2 (12:58→21:01)
--- NOTE | 2019-02-23 13:32 | Infectious Disease Consult ---
Date of Consultation February 23, 2019 Assessment & Plan (1) Myositis: cotninue abx, follow cultures and echo, drainage if able for culture. will likely need several weeks abx, if culture negative will continue on current course, for picc line, will need weekly cb,cmp,esr, cpk History of Present Illness Attending Physician: Zane Andrew DO sent for admission from ID office after wosening leg pain left back pain and difficulty with rom. MRI spine done, 3x2 cm collection noted in gluetal muscle and increased myositis psoas noted. 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 blood cultures pending, echo pending, afebrile. ESR mild elevation 39. pain much better today, placed on dapto and cefepime tolerating well. IR to review films. no previous + cutlures. Allergies Allergy/AdvReac Type Severity Reaction Status Date / Time bee pollen Allergy Severe Verified 02/22/19 14:45 aspirin Allergy Intermediate asthma Verified 02/22/19 14:45 attack ibuprofen Allergy Intermediate ASTHMA Verified 02/22/19 14:45 ATTACK Penicillins AdvReac Intermediate Verified 02/22/19 19:07 fluconazole AdvReac Sick, Verified 02/22/19 14:45 dizziness Home Medications Home Medications Medication Instructions Recorded Confirmed Type levalbuterol HCl 0.63 mg/3 mL 0.63 mg INH Q4H PRN #120 vial 09/14/18 02/22/19 Rx solution for nebulization levalbuterol tartrate 45 2 puffs INH Q4H PRN #15 gm 09/14/18 02/22/19 Rx mcg/actuation aerosol inhaler riboflavin (vitamin B2) 100 mg 200 mg PO QAM tab 10/11/18 02/22/19 History tablet Culturelle 1 cap PO QAM 02/14/19 02/22/19 History Multiple Vitamin, Womens 1 tab PO QAM 02/14/19 02/22/19 History ascorbic acid (vitamin C) 100 mg PO QAM 02/14/19 02/22/19 History esomeprazole magnesium [Nexium] 20 mg PO QAM 02/14/19 02/22/19 History Symbicort 2 puffs INH Q12H #10.2 gm 02/17/19 02/22/19 Rx clotrimazole 10 mg MUCOUS MEMBRANE TID #60 tab 02/17/19 02/22/19 Rx doxycycline hyclate 100 mg PO BID 14 Days #28 cap 02/17/19 02/22/19 Rx moxifloxacin 400 mg PO DAILY 14 Days #14 tab 02/17/19 02/22/19 Rx fluconazole 150 mg tablet 150 mg PO Q3D 0 Days #2 tab 02/21/19 02/22/19 Rx Patient History Medical History Asthma Candidiasis of mouth History of vaginal delivery Surgical History S/P bronchoscopy Bronchial thermoplasty S/P endometrial ablation S/P nasal septoplasty Family History Mother Asthma Dermatomyositis Father FH: deafness or hearing loss Hypertension Family history unknown Grandmother Lung cancer Breast cancer, Onset Age: 35 paternal - unsure if completed genetic testing Grandfather Myocardial infarction Aunt Breast cancer maternal Family/Other Breast cancer maternal Other Prostate cancer Social History Preferred Language: Hungarian Communication Ability: Effective 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 Beliefs That Will Affect Care: None Current Living Situation: Spouse Other Information That Helps Us Care for You: No Feels Safe at Home: Yes Safety Concerns: Feels Safe At This Time Smoking Status: Never smoker Second Hand Exposure: No ; Hx Alcohol Use: No Hx Substance Use: No Review of Systems Review of Systems: All systems reviewed & are unremarkable except as noted in HPI & below Physical Exam Constitutional: WD/WN, vitals as above Eyes: PERRL, conjunctivae normal, anicteric sclerae ENMT: external ear and nose normal, oropharynx normal Neck: normal visual inspection Respiratory: normal respiratory effort, lungs clear to auscultation Cardiovascular: RRR, no murmur, no edema Gastrointestinal (Abdomen): normal bowel sounds, soft, nontender, no hepatosplenomegaly Musculoskeletal: Head/Neck/Chest: + head abnormal to inspection, normocephalic and head atraumatic Extremities: + lower leg abnormality Skin: no rashes, warm and dry Psychiatric: A+Ox3, euthymic affect Results & Data Vital Signs (Past 12 Hours) Vital Signs Temp Pulse Resp BP Pulse Ox 02/23/19 11:07 36.9 C 81 18 99/62 L 100 02/23/19 06:28 36.9 C 88 20 101/67 97 02/23/19 04:34 36.9 C 84 15 96/61 L 99 PG Care Time/CCT Total # of Minutes Spent Total Time Spent with Patient: Total time spent is greater than 50% in coordination of care (as documented) at patient's floor/unit and/or counseling patient: (1) Myositis Myositis location: unspecified site Myositis type: unspecified type Qualified Code(s): M60.9 - Myositis, unspecified
--- NOTE | 2019-02-23 16:00 | Hospitalist Progress Note ---
Date of Service February 23, 2019 Assessment & Plan (1) Myositis: inflammation, signs of infection in left psoas, left paraspinal muscle, extending to lumbar spine unclear etiology last admission there was evidence of rim enhancing lesion in the psoas itself suggestive of abscess this is no longer present pain much improved with Daptomycin IV and Cefepime IV no positive cultures available to determine specific antibiotics TTE on 02/23: no obvious vegetations, no signs of mitral regurgitation d/w Dr. 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 Zheng (2) Osteomyelitis of vertebra of lumbar region: extension of the myositis in the psoas muscle clear evidence of bone involvement on MRI lumbar spine on 02/22 will have the same treatment, Dapto and Cefepime IV for 6 weeks follow up with ID (3) Leg pain: vastly improved after initiating IV antibiotics able to ambulate independently, feels like she can go home (4) Arteriovenous malformation of muscle: Subjective patient feeling much better 12 hours after IV antibiotics started far less pain in left leg, hip flexor, able to move leg and ambulate independently she says that when she went to ID office yesterday she could not move left leg due to severe pain reviewed MRI with Dr. Ferris personally, clear inflammation all along the entire left psoas and the transverse process of L3 reviewed the lesion in left gluteal muscle, completely separate, appears more like an AVM, he would not drain discussed findings of TTE with Dr. Mejia, abnormality below anterior leaf of mitral valve, this favors redundant cordae, not a vegetations also, there is not even a trace amount of mitral regurgitation which would be expected with a vegetation couple this with negative blood cultures, endocarditis highly unlikely discussed plan with Dr. Zheng, will d/c home on Daptomycin and Cefepime for now consented patient for PICC line, placed today reviewed labs, WBC normal 6.4k, BMP shows normal electrolytes and Cr worked with CM on discharge plan with home health for infusions earliest she can go home would be tomorrow after her noon doses of Cefepime and Dapto home nurse will go to house at 8pm for evening Cefepime dose Review of Systems Review of Systems: All systems reviewed & are unremarkable except as noted in HPI & below Musculoskeletal: + back pain and + myalgia (left leg, left paraspinal muscles) Physical Exam Constitutional: WD/WN, vitals as above + thin Eyes: PERRL, conjunctivae normal, anicteric sclerae ENMT: external ear and nose normal, oropharynx normal Neck: trachea midline, no thyromegaly Respiratory: normal respiratory effort, lungs clear to auscultation Cardiovascular: RRR, no murmur, no edema Gastrointestinal (Abdomen): normal bowel sounds, soft, nontender, no hepatosplenomegaly Musculoskeletal: no cyanosis or clubbing, extremities motor strength 5/5 Skin: no rashes, warm and dry Neurologic: patellar DTR's 2+ bilat, sensation intact and PERRL, EOMI, accommodation nl, no face palsy, no dysarthria Psychiatric: Orientation: alert and oriented x 3 Affect: + anxious affect Lymphatic: no cervical or axillary lymphadenopathy Results & Data Vital Signs (Past 12 Hours) Vital Signs Temp Pulse Resp BP BP Pulse Ox 02/23/19 15:29 36.9 C 95 H 18 120/77 97 02/23/19 11:07 36.9 C 81 18 99/62 L 100 02/23/19 06:28 36.9 C 88 20 101/67 97 02/23/19 04:34 36.9 C 84 15 96/61 L 99 Laboratory Results Laboratory Results - last 24 hr 02/22/19 02/22/19 02/23/19 21:42 21:42 06:19 WBC 6.43 RBC 4.31 Hgb 13.5 Hct 40.2 MCV 93.3 MCH 31.3 MCHC 33.6 RDW Std Deviation 44.7 RDW Coeff of Raquel 13.0 Plt Count 262 MPV 10.8 H Immature Gran % (Auto) 0.3 Neut % (Auto) 70.7 Lymph % (Auto) 15.9 [place] % (Auto) 10.7 Eos % (Auto) 2.2 Baso % (Auto) 0.2 Immature Gran # (Auto) 0.02 Neut # (Auto) 4.55 Lymph # (Auto) 1.02 L [place] # (Auto) 0.69 H Eos # (Auto) 0.14 Baso # (Auto) 0.01 Sodium Potassium Chloride Carbon Dioxide Anion Gap BUN Creatinine Est Cr Clr Drug Dosing Est GFR ( Amer) Est GFR (Non-Af Amer) BUN/Creatinine Ratio Glucose Calcium Phosphorus Total Bilirubin AST ALT Alkaline Phosphatase Lactate Dehydrogenase 101 Total Creatine Kinase 30 Total Protein Albumin Globulin Albumin/Globulin Ratio TSH 2.570 02/23/19 06:19 WBC RBC Hgb Hct MCV MCH MCHC RDW Std Deviation RDW Coeff of Raquel Plt Count MPV Immature Gran % (Auto) Neut % (Auto) Lymph % (Auto) [place] % (Auto) Eos % (Auto) Baso % (Auto) Immature Gran # (Auto) Neut # (Auto) Lymph # (Auto) [place] # (Auto) Eos # (Auto) Baso # (Auto) Sodium 139 Potassium 4.2 Chloride 109 H Carbon Dioxide 26 Anion Gap 4.0 BUN 14 Creatinine 0.69 Est Cr Clr Drug Dosing 93.4 Est GFR ( Amer) 128.0 Est GFR (Non-Af Amer) 110.4 BUN/Creatinine Ratio 19.7 Glucose 94 Calcium 8.7 Phosphorus 4.0 Total Bilirubin 0.6 AST 6 L ALT 9 L Alkaline Phosphatase 66 Lactate Dehydrogenase Total Creatine Kinase Total Protein 6.7 Albumin 3.2 L Globulin 3.5 Albumin/Globulin Ratio 0.9 TSH Diagnostic Findings MRI lumbar spine IMPRESSION: 1. Extensive intramuscular edema and enhancement within the left psoas muscle and mild edema and enhancement within the left iliacus and left paraspinal musculature. The abscess on CT of February 14, 2019 is no longer identified. No rim-enhancing fluid collection. Fluid within the muscle may reflect phlegmon. The findings suggest an infectious myositis. No epidural fluid collection. Inflammatory process extends to the left L2-L3 and L3-L4 neural foramen. A traumatic etiology could appear similar although is considered less likely. Discussed with Dr. Cleaning at time of dictation. 2. Small focus of marrow edema within the left transverse process of L3 which favors osteomyelitis. 3. 3.1 x 1.8 cm multiloculated T2 hyperintense enhancing lesion with fluid fluid levels along the superior aspect of the left gluteal musculature. This is nonspecific but favors a hemangioma/lymphangioma. An MRI in 6 months to ensure stability is recommended. Medications Administered Current Inpatient Medications Budesonide/Formoterol Fumarate (Symbicort 160mcg/4.5mcg) 2 puffs INH Q12 FELICIANO Stop: 03/24/19 22:53 Last Admin: 02/23/19 21:01 Dose: 2 puffs Documented by: Clotrimazole (Mycelex) 10 mg BUCCAL TID [facility] Stop: 03/25/19 13:59 Last Admin: 02/23/19 21:01 Dose: 10 mg Documented by: Cefepime HCl 2,000 mg/ Syringe 20 mls @ 5.5 mls/min IV Q8H [facility]; Protocol Stop: 04/06/19 03:59 Last Admin: 02/23/19 21:01 Dose: 5.5 mls/min Documented by: Sodium Chloride (Nss 1000ml) 1,000 mls @ 80 mls/hr IV .[id number] [facility] Stop: 03/24/19 22:53 Last Admin: 02/23/19 11:38 Dose: 80 mls/hr Documented by: Acetaminophen (Ofirmev) 1,000 mg in 100 mls @ 400 mls/hr IV Q8H PRN PRN Reason: Pain or Fever Stop: 02/25/19 22:53 Last Infusion: 02/23/19 21:32 Dose: Infused Documented by: Daptomycin 325 mg/ Syringe 6.5 mls @ 2.25 mls/min IV Q24H [facility]; Protocol Stop: 04/06/19 18:59 Last Admin: 02/23/19 16:55 Dose: Not Given Documented by: Lactobacillus Acidophilus (Floranex) 4 tab PO QAM [facility] Stop: 03/25/19 08:59 Last Admin: 02/23/19 08:43 Dose: 4 tab Documented by: Levalbuterol HCl (Xopenex 0.63 Mg/3 Ml Neb) 0.63 mg INH Q4H PRN PRN Reason: shortness of breath or wheezing Stop: 03/24/19 22:53 Levalbuterol HCl (Xopenex Hfa) 2 puffs INH Q4H PRN PRN Reason: shortness of breath or wheezing Stop: 03/24/19 22:53 Morphine Sulfate (Morphine Sulfate) 2 mg IV Q4H PRN PRN Reason: Pain Stop: 03/08/19 22:53 Ondansetron HCl (Zofran) 4 mg IV Q6H PRN PRN Reason: Nausea Stop: 03/24/19 22:53 Pantoprazole Sodium (Protonix) 40 mg PO QAM FELICIANO Stop: 03/25/19 08:59 Last Admin: 02/23/19 08:43 Dose: 40 mg Documented by: PG Care Time/CCT Total # of Minutes Spent Total Time Spent: 60 Total Time Spent with Patient: Total time spent is greater than 50% in coordination of care (as documented) at patient's floor/unit and/or counseling patient: (1) Myositis Myositis location: unspecified site Myositis type: unspecified type Qualified Code(s): M60.9 - Myositis, unspecified (2) Leg pain Laterality: left Qualified Code(s): M79.605 - Pain in left leg
[2019-02-23] MEDS: DAPTOmycin 325 MG in SYRINGE 0 ML IV SCH ×2 (16:39→16:55)
[2019-02-23] MEDS ORDERED: DAPTOmycin 225 MG in SYRINGE 0 ML IV SCH (19:00)
--- NOTE | 2019-02-24 03:47 | Billing Data ---
Date of Service February 24, 2019 Coding Level of Care Code 03109 OBS Care - Level 3
[2019-02-24] MEDS: CEFEPIME 2,000 MG in SYRINGE 7.5 ML IV SCH ×2 (04:39→11:59)
[2019-02-24] MEDS: BUDESONIDE/FORMOTEROL FUMARATE 160/4.5 60 PUFFS/INHALER INH SCH (08:13)
[2019-02-24] MEDS: CLOTRIMAZOLE 10 MG TROCHE BUCCAL SCH (08:13)
[2019-02-24] MEDS: LACTOBACILLUS ACIDOPHILUS (FLORANEX) TAB PO SCH (08:13)
[2019-02-24] MEDS: PANTOprazole 40 MG TAB PO SCH (08:13)
--- NOTE | 2019-02-24 10:40 | Discharge Summary ---
Date of Service February 24, 2019 Admission HPI Per Admitting Provider Devaughn Carlson is a 38 y/o female with past medical history of severe persistent asthma, oral thrush on Clotrimazole, and recent admission for Left Psoas Abscess discharged on Avelox and Doxcycline presented to [facility] from ID appt for non- improving symptoms of left leg pain and difficulty with ambulation. She was recently admitted to [facility] on 02/14-02/17/2019 and was receiving outpatient treatment with Avelox and Doxycycline. No determined etiology of cause from previous workup. She had dental work end of December, also fell down concrete stairs 01/30 with hematoma without abrasions, she had numerous blood draws she notes for workup of Immunology from her Oral Thrush, has needed Prednisone for her asthma with last use September 2018, as all potential causes. She denies previous hospitalizations as a child for infectious causes doubt congenital cause. She had negative HIV from previous admission. She notes that her symptoms weren't worsening that they were just not improving. She denies any fever or chills or IV drug use. She notes compliance with her medications on outpatient. She also notes being on Clotrimazole for oral thrush. Admission Exam Per Admitting Provider Constitutional: WD/WN, vitals as above cooperative and comfortable Eyes: PERRL, conjunctivae normal, anicteric sclerae ENMT: external ear and nose normal, oropharynx normal Neck: trachea midline, no thyromegaly Respiratory: normal respiratory effort, lungs clear to auscultation Cardiovascular: Rate/Rhythm: regular rhythm and + tachycardic Extremities: no pedal edema Gastrointestinal (Abdomen): Percussion/Palpation: abdomen soft; abdomen nontender, no guarding and abdomen not rigid Musculoskeletal: pain with left leg flexion; no sensory loss, N/V intact Skin: no rashes, warm and dry no overlying erythema Neurologic: moves all extremities and awake Psychiatric: A+Ox3, euthymic affect Principal Diagnosis 1. Myositis, likely infectious of the left psoas muscle. 2. Small foci of osteomyelitis on the transverse processes L3 Discharge Exam Constitutional cooperative; no acute distress Neck trachea midline, no thyromegaly Respiratory normal respiratory effort Auscultation: lungs clear to auscultation bilaterally; no crackles, no rales, no rhonchi and no wheezes Cardiovascular Rate/Rhythm: regular rate and regular rhythm Heart Sounds: normal S1, normal S2 and + murmur Gastrointestinal (Abdomen) Inspection/Auscultation: abdomen normal to inspection Percussion/Palpation: abdomen soft; abdomen nontender, no guarding, abdomen not rigid and no hepatosplenomegaly Skin no rashes, warm and dry Discharge Data Allergies Allergy/AdvReac Type Severity Reaction Status Date / Time bee pollen Allergy Severe Verified 02/22/19 14:45 aspirin Allergy Intermediate asthma Verified 02/22/19 14:45 attack ibuprofen Allergy Intermediate ASTHMA Verified 02/22/19 14:45 ATTACK Penicillins AdvReac Intermediate Verified 02/22/19 19:07 fluconazole AdvReac Sick, Verified 02/22/19 14:45 dizziness Consultations 02/22/19 19:05 ED Decision to Admit Stat 02/22/19 22:54 Consult Cardiology Routine Consult Infectious Diseases Routine Ordered Studies 02/22/19 14:53 MR lumbar spine wo/w con Stat MRI OF THE LUMBAR SPINE WITH AND WITHOUT CONTRAST CLINICAL HISTORY: back pain, ?iliopsoas abscess, weakness LLE COMPARISON STUDY: CT of the abdomen and pelvis February 14, 2019. Lumbar spine radiographs February 14, 2019. TECHNIQUE: Utilizing a 1.5 Rosina magnet and dedicated coil, multiplanar, multiecho imaging of the lumbar spine was performed before and after uneventful IV administration of 5.3 mL of Gadavist. FINDINGS: For purposes of numbering on this exam, the L5-S1 disc space is assigned to axial image 32 of 46. 11 lumbar spine is anatomic. Vertebral body heights are maintained. Disc spaces are preserved. There is no epidural fluid collection. Conus terminates at the mid L1 level. No abnormal enhancement within the canal is noted. Note is made of extensive muscular edema and enhancement of the left psoas muscle as well as mild edema and enhancement within portions of the left iliacus muscle. The rim-enhancing fluid collection within the left psoas muscle on CT of February 14, 2019 is no longer identified. There is no drainable fluid collection. There is fluid within the left psoas which may reflect phlegmon. There is adjacent edema and enhancement. There is a small focus of marrow edema within the left transverse process of L3. T1 signal may be slightly diminished. There is increased T2 signal. Note is made of a multiloculated 3.1 x 1.8 cm T2 hyperintense lesion with enhancement along the superior aspect of the left gluteal musculature on axial image 28 of 46. This contains fluid fluid levels on the T2-weighted sequence. L1-2: The central canal and neural foramen are patent. L2-3: The central canal and neural foramen are patent. L3-4: The central canal and neural foramen are patent. L4-5: The central canal and neural foramen are patent. L5-S1: There is minimal disc bulge. Central canal and neural foramen are patent. IMPRESSION: 1. Extensive intramuscular edema and enhancement within the left psoas muscle and mild edema and enhancement within the left iliacus and left paraspinal musculature. The abscess on CT of February 14, 2019 is no longer identified. No rim-enhancing fluid collection. Fluid within the muscle may reflect phlegmon. The findings suggest an infectious myositis. No epidural fluid collection. Inflammatory process extends to the left L2-L3 and L3-L4 neural foramen. A trau matic etiology could appear similar although is considered less likely. Discussed with Dr. Cleaning at time of dictation. 2. Small focus of marrow edema within the left transverse process of L3 which fa vors osteomyelitis. 3. 3.1 x 1.8 cm multiloculated T2 hyperintense enhancing lesion with fluid fluid levels along the superior aspect of the left gluteal musculature. This is nonspecific but favors a hemangioma/lymphangioma. An MRI in 6 months to ensure stability is recommended. Hospital Course (1) Myositis: (2) Osteomyelitis of vertebra of lumbar region: extension of the myositis in the psoas muscle clear evidence of bone involvement on MRI lumbar spine on 02/22 will have the same treatment, Dapto and Cefepime IV for 6 weeks Patient had a 2D echo that was negative for vegetation. Plan will be 6 weeks total of cefepime and daptomycin. This will be done with home infusion. Patient had a right upper extremity PICC line inserted on 02/24. Plan today will be to discharge home after her noon infusion of antibiotics. The home infusion company will meet the patient at home and teach her how to continue infusions. Patient will need weekly lab work per infectious disease, should contact their office to arrange this. (3) Leg pain: Patient tells me that her leg pain is much improved and that she feels she can ambulate again. Physical continue to improve as the patient continues her antibiotics. (4) Asthma: (5) Candidiasis of mouth: (6) Tachycardia: (7) Acid reflux disease: Total Time Total Time Spent Total Time Spent (In Minutes): Discharge preparation in excess of 30 minutes. Discharge Plan Discharge Items Patient Disposition: Home - Home Health Services Reason For Visit: OSTEOMYELITIS Discharge Diagnosis: Myositis of left psoas muscle Osteomyelitis of L3 left transverse process AVM of left gluteal muscle Condition on Discharge: Good Goals: continue treatment with Daptomycin IV and Cefepime IV follow up with Dr. Zheng in 2 weeks Activity: Resume your previous activity Driving/Machine Use: No limitations Weightbearing: Full weightbearing Non-emergency contact: Primary Care Provider and Specialist Call non-emergency contact if: you have any medication questions, your symptoms worsen, your pain is not controlled, your pain is worsening and you have a fever Follow-up/Referrals: Justine Hunt MD [Primary Care Provider] - Miranda Zheng DO [Physician] - (Will need follow up labwork weekly while you are on antibiotics, call office to arrange for lab slips. ) Diet: Regular Addtl Attending Provider Instructions: Medications: - DAPTOMYCIN: 325mg IV daily at noon, will need 6 weeks of treatment - CEFEPIME: 2000mg IV every 8 hours (4am, 1200pm and 8pm) for 6 weeks of treatment these medications are not on list because scripts were given to home IV pharmacy Myositis and osteomyelitis responded well to treatment thus far please follow up in two weeks with Dr. Zheng, call her office for appt certainly, call sooner if you have any pain or fever/chills AVM of gluteal muscle radiology recommends routine MRI in 6 months to ensure stability however, you will get MRI of lumbar spine sooner to assess response to antibiotics Pending Studies at Discharge: No Stand-Alone Forms: Call Back Authorization, [facility] [employer], Smoking Cessation Medications and DC Order Prescriptions: Continued levalbuterol HCl [Xopenex] 0.63 mg/3 mL solution for nebulization 0.63 mg INH Q4H PRN (Reason: shortness of breath or wheezing) Qty: 120 RF: 5 levalbuterol tartrate [Xopenex HFA] 45 mcg/actuation HFA aerosol inhaler 2 puffs INH Q4H PRN (Reason: shortness of breath or wheezing) Qty: 15 RF: 0 riboflavin (vitamin B2) [Vitamin B-2] 100 mg tablet 200 mg PO QAM RF: 0 ascorbic acid (vitamin C) 100 mg tablet 100 mg PO QAM RF: 0 Culturelle 10 billion cell capsule 1 cap PO QAM RF: 0 esomeprazole magnesium [Nexium] 20 mg capsule,delayed release(DR/EC) 20 mg PO QAM RF: 0 Multiple Vitamin, Womens tablet 1 tab PO QAM RF: 0 clotrimazole 10 mg elan 10 mg mucous membrane TID Qty: 60 RF: 1 Symbicort 160-4.5 mcg/actuation HFA aerosol inhaler 2 puffs INH Q12H Qty: 10.2 RF: 5 Discontinued fluconazole 150 mg tablet 150 mg PO Q3D 0 Days Qty: 2 RF: 0 moxifloxacin 400 mg tablet 400 mg PO DAILY 14 Days Qty: 14 RF: 0 doxycycline hyclate 100 mg capsule 100 mg PO BID 14 Days Qty: 28 RF: 0 Discharge Orders: Discharge Order (Routine); Ordered 02/24/19 Ordered By: Benjamín Mejia Admission Data Admit Date/Time: 02/22/19 20:57 Attending Provider: Benjamín Mejia Admit Provider: Dany Sorensen Primary Care Provider: Justine Hunt Other Providers: Jose Alejandro Tejeda ; Miranda Zheng ; Royer Henley ; [facility] ; Zane Andrew
[2019-02-24] MEDS: DAPTOmycin 325 MG in SYRINGE 0 ML IV SCH (11:58)
== END 2019-02-24 12:58 | disposition home health service (06) | DRG 540 ==
LOC: ED 13:11 → SUATTDRO 20:57 → 2S 20:57